=== PATIENT | female | born 1955 | race Caucasian/White ===

== ENCOUNTER 2017-10-05 10:21 | Inpatient (IN) | payer MEDICAID ==
[~2017-10-05] VITALS: Ht 157.5 cm; Wt 127.8 kg
[2017-10-05] VITALS (8 sets, daily range): BP systolic 75–114; BP diastolic 43–56
[~2017-10-05 10:21] MED LIST: ALB0.5UD IH; ASPI-1071 PO; BECL7.3A7 INH; BUSP15TA12 PO; DOCU-28 PO; FLUT1AER INH; FURO20TA4 PO; GABA600T2 PO; HYDR-3686 PO; LEVO250T58 PO; LEVO300T2 PO; LISI10TA PO; LORA-512 PO; MONT10TA21 PO; OXYGEN NS; PANT-47 PO; PRAV80TA3 PO; SPIIN INH; TRAV5DRO EACHEYE; TRAZ-143 PO; VENL150T3 PO; etomidate 2mg/ml inj. ONE; rocuronium 10mg/ml inj IV ONE
[2017-10-05] MEDS ORDERED: metroNIDAZOLE-Flagyl 500mg/NS 100 ML IV STA (10:36)
[2017-10-05] MEDS ORDERED: normal saline 1000ML IV soln IV ONE (10:40)
[2017-10-05] MEDS ORDERED: rocuronium 10mg/ml inj IV ONE (10:40)
[2017-10-05] MEDS ORDERED: fentaNYL/PF 50MCG/1 ML 2ML syringe IV ONE (10:40)
[2017-10-05] MEDS ORDERED: etomidate 2mg/ml inj. IV ONE (10:40)
[2017-10-05] MEDS ORDERED: levoFLOXACIN-Levaquin 500mg/D5 100 ML IV ONE (10:40)
[2017-10-05] MEDS ORDERED: vancomycin/NS 1 GM ADD-VANTAGE 250 ML IV ONE (10:40)
[2017-10-05] MEDS ORDERED: MIDAZolam 5mg/ml 2ml vial IV ONE (10:40)
[2017-10-05 10:56] LABS: BASOPHILS % (AUTO) 0.2 % (0-1); EOSINOPHILS # (AUTO) 0.3 X10'3 (0-0.9); EOSINOPHILS % (AUTO) 2.1 % (0-6); HEMATOCRIT 30.5 % (35.0-45.0); LYMPHOCYTES # (AUTO) 0.9 X10'3 (1.1-4.8); LYMPHOCYTES % (AUTO) 7.5 % (21-51); MEAN CORPUSCULAR HEMOGLOBIN 29.5 PG (27.0-31.0); MEAN CORPUSCULAR HGB CONC 32.9 % (33.0-36.5); MEAN CORPUSCULAR VOLUME 89.6 FL (78-98); MEAN PLATELET VOLUME 7.7 FL (7.4-10.4); MONOCYTES # (AUTO) 0.6 X10'3 (0-0.9); MONOCYTES % (AUTO) 4.8 % (2-12); NEUTROPHILS # (AUTO) 10.2 X10'3 (1.8-7.7); NEUTROPHILS % (AUTO) 85.4 % (42-75); PLATELET COUNT 189 X10'3 (140-440); RED BLOOD COUNT 3.41 X10'6 (4.20-5.60)
[2017-10-05] MEDS ORDERED: propofol 1000mg/100ml bottle 100 ML IV PRN (11:03)
[2017-10-05 11:05] LABS: PARTIAL THROMBOPLASTIN TIME 25 SECONDS (22-32); PROTHROMBIN TIME 9.9 SECONDS (9.0-12.0)
[2017-10-05 11:07] LABS: CLARITY,URINE CLEAR (Clear); COLOR,URINE YELLOW (Yellow); GLUCOSE, URINE NEGATIVE (Neg); KETONES,URINE NEGATIVE (Neg); LEUKOCYTE ESTERASE ,URINE NEGATIVE (Neg); NITRITES, URINE NEGATIVE (Neg); OCCULT BLOOD,URINE NEGATIVE (Neg); PH,URINE 5.5 (4.8-8.0); PROTEIN,URINE NEGATIVE (Neg); UROBILINOGEN,URINE 0.2 E.U/dL (0.2-1.0)
[2017-10-05 11:08] LABS: UA COLLECTION TYPE FOLEY CATH
[2017-10-05 11:10] LABS: ALANINE AMINOTRANSFERASE 18 U/L (12-78); ALBUMIN 3.1 G/DL (3.4-5.0); ALBUMIN/GLOBULIN RATIO 0.8 (1.1-1.5); ALKALINE PHOSPHATASE 75 IU/L (46-116); ANION GAP 2 (8-16); ASPARTATE AMINO TRANSFERASE 15 U/L (10-37); BILIRUBIN,TOTAL 0.3 MG/DL (0.1-1.0); BLOOD UREA NITROGEN 64 MG/DL (7-18); BUN/CREATININE RATIO 32.2 (6.6-38.0); CALCIUM 8.1 MG/DL (8.5-10.1); CHLORIDE 101 MMOL/L (99-107); CREATININE 1.99 MG/DL (0.40-0.90); GLUCOSE 151 MG/DL (70-104); SODIUM 143 MMOL/L (135-145); TOTAL CARBON DIOXIDE 39.6 MMOL/L (24-32); TOTAL PROTEIN 6.8 G/DL (6.4-8.2); eGFR 25 ML/MIN
[2017-10-05 11:11] LABS: ETHANOL < 0.010 GM/DL (0.0-0.010)
[2017-10-05 11:12] LABS: POTASSIUM 5.5 MMOL/L (3.5-5.1)
[2017-10-05 11:20] LABS: URINE AMPHETAMINE SCREEN NEGATIVE (Neg); URINE BARBITUATE SCREEN NEGATIVE (Neg); URINE BENZODIAZEPINES SCREEN NEGATIVE (Neg); URINE CANNABINOID SCREEN NEGATIVE (Neg); URINE COCAINE SCREEN NEGATIVE (Neg); URINE METHADONE SCREEN NEGATIVE (Neg); URINE OPIATE SCREEN NEGATIVE (Neg); URINE PHENCYCLIDINE SCREEN NEGATIVE (Neg)
[2017-10-05] MEDS: midazolam 100mg in NS 100ml 100 ML IV PRN ×7 (11:23→22:27)
[2017-10-05] MEDS ORDERED: midazolam 100mg in NS 100ml 100 ML IV PRN (12:29)
[2017-10-05 12:30] LABS: ABG BASE EXCESS 5.8 mmol/L (-2.0-3.0); ABG OXYGEN SATURATION 93.2 % (95-98); ABG PCO2 (T) 100.6 mmHg (32.0-45.0); ABG PH (T) 7.181 (7.350-7.450); ABG PO2 (T) 75.1 mmHg (83-108); FCOHb 0.3 % (0.5-1.5); FMetHb 0.2 % (0.3-1.12); FO2Hb 92.7 % (94-100); PATIENT TEMPERATURE 36.5; PEEP 5 cm H2O; RESPIRATORY RATE 12 b/min; TIDAL VOLUME 400 mL
[2017-10-05] MEDS ORDERED: acetaminophen 325mg tablet PO PRN (12:30)
[2017-10-05] MEDS ORDERED: potassium Cl 40MEQ/250ML bag 250 ML IV SCH (12:30)
[2017-10-05] MEDS ORDERED: ipratropium/albuterol 3ml nebule NEB PRN (12:30)
[2017-10-05] MEDS ORDERED: fentaNYL/PF 50MCG/1 ML 2ML syringe IV PRN (12:30)
[2017-10-05] MEDS ORDERED: midazolam 2 mg/2 ml injection IV ONE (12:30)
[2017-10-05] MEDS ORDERED: potassium Cl 20 mEq SR tablet PO PRN (12:30)
[2017-10-05] MEDS ORDERED: potassium Cl 40MEQ/250ML bag 250 ML IV PRN (12:30)
[2017-10-05] MEDS ORDERED: potassium Cl 40MEQ/NS 500ml 500 ML IV PRN ×2 (12:30)
[2017-10-05] MEDS: metroNIDAZOLE-Flagyl 500mg/NS 100 ML IV SCH ×2 (12:45→15:10)
[2017-10-05] MEDS ORDERED: levoFLOXACIN-Levaquin 250mg/D5 50 ML IV SCH (12:45)
[2017-10-05] MEDS ORDERED: ERGO500041 PO (12:51)
[2017-10-05] MEDS ORDERED: OMEP40CA37 PO (12:51)
[2017-10-05] MEDS ORDERED: DOCU-28 PO (12:51)
[2017-10-05] MEDS ORDERED: LORA10TA65 PO (12:51)
[2017-10-05] MEDS ORDERED: LURA20TA PO (12:51)
[2017-10-05] MEDS ORDERED: BUPR200T2 PO (12:51)
[2017-10-05] MEDS ORDERED: BUDE10.22 INH (12:51)
[2017-10-05] MEDS ORDERED: BUSP10TA11 PO (12:51)
[2017-10-05] MEDS ORDERED: SPIR25TA3 PO (12:51)
[2017-10-05] MEDS ORDERED: EFF25T PO (12:51)
[2017-10-05] MEDS: normal saline 1000ml 1,000 ML IV SCH ×2 (13:14→22:30)
[2017-10-05] MEDS: FENTANYL-0.9 % NACL/PF 100 ML IV PRN ×5 (13:26→15:08)
[2017-10-05] MEDS: ipratropium/albuterol 3ml nebule NEB SCH ×3 (16:45→23:09)
[2017-10-05] MEDS ORDERED: furosemide 40mg/4ml inj IV ONE (17:10)
[2017-10-05] MEDS: NORepinephrine 8mg/ 250ml NS 250 ML IV SCH (17:51)
[2017-10-05 19:31] LABS: OXYGEN SATURATION (MIXED VEN) 62.2 % (60-80); PO2 MIXED VENOUS (TEMP COR) 30.3 mmHg (35-46)
[2017-10-05] MEDS: heparin, porcine 5000 units/ml vial SQ SCH (19:37)
[2017-10-05] MEDS: docusate sod 100mg capsule PO SCH (19:38)
[2017-10-05] MEDS ORDERED: BECLOMETHASONE DIPROPIONATE INH SCH (20:00)
[2017-10-05] MEDS: latanoprost 0.005% 2.5ml ophthalmic drops EACHEYE SCH (20:40)
[2017-10-05] MEDS: famotidine/PF 10 mg/ml inj IV SCH (20:40)
[2017-10-06] VITALS (24 sets, daily range): BP systolic 92–119; BP diastolic 47–64
[2017-10-06] MEDS: metroNIDAZOLE-Flagyl 500mg/NS 100 ML IV SCH ×3 (00:04→16:27)
[2017-10-06] MEDS: FENTANYL-0.9 % NACL/PF 100 ML IV PRN ×5 (00:04→21:58)
[2017-10-06] MEDS: ipratropium/albuterol 3ml nebule NEB SCH ×6 (02:59→23:19)
[2017-10-06 03:16] LABS: ABG BASE EXCESS 12.3 mmol/L (-2.0-3.0); ABG HCO3 38.1 mmol/L (22.0-26.0); ABG OXYGEN SATURATION 93.9 % (95-98); ABG PCO2 (T) 58.2 mmHg (32.0-45.0); ABG PH (T) 7.437 (7.350-7.450); ABG PO2 (T) 73.7 mmHg (83-108); ALLEN'S TEST Positive; FCOHb 0.8 % (0.5-1.5); FMetHb 0.3 % (0.3-1.12); FO2Hb 92.9 % (94-100); MINUTE VOLUME 8 L/min; PATIENT TEMPERATURE 37.7; PEEP 5 cm H2O; RESPIRATORY RATE 20 b/min; RESPIRATORY RATE (OBSERVED) 20 b/min; TIDAL VOLUME 350 mL; TOTAL HEMOGLOBIN 10.8 G/dl (12.0-16.0)
[2017-10-06 04:39] LABS: BASOPHILS % (AUTO) 0.2 % (0-1); EOSINOPHILS # (AUTO) 0.3 X10'3 (0-0.9); EOSINOPHILS % (AUTO) 2.5 % (0-6); HEMATOCRIT 28.8 % (35.0-45.0); HEMOGLOBIN 9.6 g/dl (12.0-16.0); LYMPHOCYTES # (AUTO) 1.7 X10'3 (1.1-4.8); LYMPHOCYTES % (AUTO) 14.1 % (21-51); MEAN CORPUSCULAR HEMOGLOBIN 29.5 PG (27.0-31.0); MEAN CORPUSCULAR HGB CONC 33.4 % (33.0-36.5); MEAN CORPUSCULAR VOLUME 88.4 FL (78-98); MEAN PLATELET VOLUME 7.8 FL (7.4-10.4); MONOCYTES # (AUTO) 1.3 X10'3 (0-0.9); MONOCYTES % (AUTO) 10.9 % (2-12); NEUTROPHILS # (AUTO) 8.5 X10'3 (1.8-7.7); NEUTROPHILS % (AUTO) 72.3 % (42-75); PLATELET COUNT 183 X10'3 (140-440); RED BLOOD COUNT 3.26 X10'6 (4.20-5.60); RED CELL DISTRIBUTION WIDTH 13.7 % (11.5-14.5); WHITE BLOOD COUNT 11.7 X10'3 (4.5-11.0)
[2017-10-06 05:04] LABS: ALANINE AMINOTRANSFERASE 32 U/L (12-78); ALBUMIN 2.8 G/DL (3.4-5.0); ALBUMIN/GLOBULIN RATIO 0.8 (1.1-1.5); ALKALINE PHOSPHATASE 54 IU/L (46-116); ANION GAP 4 (8-16); ASPARTATE AMINO TRANSFERASE 26 U/L (10-37); BILIRUBIN,TOTAL 0.7 MG/DL (0.1-1.0); BLOOD UREA NITROGEN 54 MG/DL (7-18); BUN/CREATININE RATIO 31.2 (6.6-38.0); CALCIUM 8.3 MG/DL (8.5-10.1); CHLORIDE 103 MMOL/L (99-107); CREATININE 1.73 MG/DL (0.40-0.90); GLUCOSE 115 MG/DL (70-104); MAGNESIUM 1.5 MG/DL (1.5-2.4); PHOSPHORUS 3.3 MG/DL (2.3-4.5); POTASSIUM 4.2 MMOL/L (3.5-5.1); SODIUM 145 MMOL/L (135-145); TOTAL CARBON DIOXIDE 38.4 MMOL/L (24-32); TOTAL PROTEIN 6.2 G/DL (6.4-8.2); eGFR 30 ML/MIN
[2017-10-06] MEDS: aspirin 81mg tablet.DR PO SCH (08:00)
[2017-10-06] MEDS: famotidine/PF 10 mg/ml inj IV SCH ×2 (08:00→08:43)
[2017-10-06] MEDS ORDERED: TIOTROPIUM BROMIDE INH SCH (08:00)
[2017-10-06] MEDS: lisinopril 10 MG tablet PO SCH (08:00)
[2017-10-06] MEDS: docusate sod 100mg capsule PO SCH ×2 (08:00→20:00)
[2017-10-06] MEDS: levoFLOXACIN-Levaquin 250mg/D5 50 ML IV SCH (08:05)
[2017-10-06] MEDS: midazolam 100mg in NS 100ml 100 ML IV PRN ×2 (08:06→16:27)
[2017-10-06] MEDS: levoTHYROXINE 100mcg tablet PO SCH (08:07)
[2017-10-06] MEDS: atorvastatin 20mg tablet PO SCH (08:07)
[2017-10-06] MEDS: heparin, porcine 5000 units/ml vial SQ SCH ×2 (08:07→22:05)
[2017-10-06] MEDS: furosemide 20MG tablet PO SCH (08:07)
[2017-10-06] MEDS: loratadine 10mg tablet PO SCH (08:07)
[2017-10-06] MEDS: montelukast 10mg tablet PO SCH (08:07)
[2017-10-06] MEDS ORDERED: furosemide 40mg/4ml inj IV ONE (12:10)
[2017-10-06] MEDS: normal saline 1000ml 1,000 ML IV SCH (16:27)
[2017-10-06] MEDS: mineral oil/petrolatum ophthal oint EACHEYE SCH ×2 (16:28→21:55)
[2017-10-06] MEDS: latanoprost 0.005% 2.5ml ophthalmic drops EACHEYE SCH (21:57)
[2017-10-07] VITALS (24 sets, daily range): BP systolic 93–136; BP diastolic 51–70
[2017-10-07] MEDS: metroNIDAZOLE-Flagyl 500mg/NS 100 ML IV SCH ×3 (00:37→16:37)
[2017-10-07] MEDS: midazolam 100mg in NS 100ml 100 ML IV PRN ×3 (00:39→13:07)
[2017-10-07] MEDS: mineral oil/petrolatum ophthal oint EACHEYE SCH ×4 (02:51→20:51)
[2017-10-07] MEDS: FENTANYL-0.9 % NACL/PF 100 ML IV PRN ×4 (02:52→18:30)
[2017-10-07] MEDS: ipratropium/albuterol 3ml nebule NEB SCH ×6 (03:46→22:35)
[2017-10-07 04:21] LABS: ABG BASE EXCESS 11.5 mmol/L (-2.0-3.0); ABG HCO3 36.7 mmol/L (22.0-26.0); ABG OXYGEN SATURATION 93.6 % (95-98); ABG PH (T) 7.467 (7.350-7.450); ABG PO2 (T) 72.6 mmHg (83-108); ALLEN'S TEST Positive; FO2Hb 93.6 % (94-100); MINUTE VOLUME 8 L/min; PATIENT TEMPERATURE 37.3; PEEP 5 cm H2O; RESPIRATORY RATE 20 b/min; RESPIRATORY RATE (OBSERVED) 20 b/min; TIDAL VOLUME 350 mL; TOTAL HEMOGLOBIN 10.2 G/dl (12.0-16.0)
[2017-10-07 05:09] LABS: BASOPHILS % (AUTO) 0.2 % (0-1); EOSINOPHILS # (AUTO) 0.4 X10'3 (0-0.9); EOSINOPHILS % (AUTO) 2.9 % (0-6); HEMATOCRIT 27.2 % (35.0-45.0); HEMOGLOBIN 9.1 g/dl (12.0-16.0); LYMPHOCYTES # (AUTO) 1.9 X10'3 (1.1-4.8); LYMPHOCYTES % (AUTO) 14.8 % (21-51); MEAN CORPUSCULAR HEMOGLOBIN 29.7 PG (27.0-31.0); MEAN CORPUSCULAR HGB CONC 33.5 % (33.0-36.5); MEAN CORPUSCULAR VOLUME 88.6 FL (78-98); MEAN PLATELET VOLUME 7.7 FL (7.4-10.4); MONOCYTES # (AUTO) 1.2 X10'3 (0-0.9); MONOCYTES % (AUTO) 9.7 % (2-12); NEUTROPHILS # (AUTO) 9.4 X10'3 (1.8-7.7); NEUTROPHILS % (AUTO) 72.4 % (42-75); PLATELET COUNT 179 X10'3 (140-440); RED BLOOD COUNT 3.07 X10'6 (4.20-5.60); RED CELL DISTRIBUTION WIDTH 13.7 % (11.5-14.5); WHITE BLOOD COUNT 12.9 X10'3 (4.5-11.0)
[2017-10-07 05:25] LABS: ALANINE AMINOTRANSFERASE 24 U/L (12-78); ALBUMIN 2.5 G/DL (3.4-5.0); ALBUMIN/GLOBULIN RATIO 0.7 (1.1-1.5); ALKALINE PHOSPHATASE 47 IU/L (46-116); ANION GAP 6 (8-16); ASPARTATE AMINO TRANSFERASE 21 U/L (10-37); BILIRUBIN,TOTAL 0.7 MG/DL (0.1-1.0); BLOOD UREA NITROGEN 36 MG/DL (7-18); BUN/CREATININE RATIO 24.7 (6.6-38.0); CALCIUM 8.5 MG/DL (8.5-10.1); CHLORIDE 106 MMOL/L (99-107); CREATININE 1.46 MG/DL (0.40-0.90); GLUCOSE 117 MG/DL (70-104); MAGNESIUM 1.5 MG/DL (1.5-2.4); PHOSPHORUS 3.5 MG/DL (2.3-4.5); POTASSIUM 3.6 MMOL/L (3.5-5.1); SODIUM 149 MMOL/L (135-145); TOTAL CARBON DIOXIDE 37.5 MMOL/L (24-32); TOTAL PROTEIN 6.2 G/DL (6.4-8.2); eGFR 36 ML/MIN
[2017-10-07] MEDS: famotidine/PF 10 mg/ml inj IV SCH ×2 (07:31→20:51)
[2017-10-07] MEDS: heparin, porcine 5000 units/ml vial SQ SCH ×2 (07:31→20:51)
[2017-10-07] MEDS: furosemide 20MG tablet PO SCH (07:32)
[2017-10-07] MEDS: levoTHYROXINE 100mcg tablet PO SCH (07:32)
[2017-10-07] MEDS: levoFLOXACIN-Levaquin 250mg/D5 50 ML IV SCH (07:32)
[2017-10-07] MEDS: docusate sod 100mg capsule PO SCH ×2 (07:33→20:51)
[2017-10-07] MEDS: montelukast 10mg tablet PO SCH (07:33)
[2017-10-07] MEDS: atorvastatin 20mg tablet PO SCH (07:33)
[2017-10-07] MEDS: aspirin 81mg tablet.DR PO SCH (07:33)
[2017-10-07] MEDS: lisinopril 10 MG tablet PO SCH (07:34)
[2017-10-07] MEDS: loratadine 10mg tablet PO SCH (07:34)
[2017-10-07] MEDS: dexmedetomidin/NS 400mcg/100ml 100 ML IV SCH ×2 (11:42→17:50)
[2017-10-07] MEDS ORDERED: bisacodyl 10mg suppository rectal RC PRN (12:30)
[2017-10-07] MEDS: NORepinephrine 8mg/ 250ml NS 250 ML IV SCH (17:10)
[2017-10-07] MEDS: latanoprost 0.005% 2.5ml ophthalmic drops EACHEYE SCH (20:52)
[2017-10-07] MEDS: normal saline 1000ml 1,000 ML IV SCH (22:09)
[2017-10-08] VITALS (23 sets, daily range): BP systolic 105–160; BP diastolic 57–82
[2017-10-08] MEDS: mineral oil/petrolatum ophthal oint EACHEYE SCH ×4 (02:00→20:57)
[2017-10-08] MEDS: ipratropium/albuterol 3ml nebule NEB SCH ×6 (02:28→22:30)
[2017-10-08] MEDS: dexmedetomidin/NS 400mcg/100ml 100 ML IV SCH ×4 (03:19→23:39)
[2017-10-08] MEDS: FENTANYL-0.9 % NACL/PF 100 ML IV PRN ×3 (03:19→14:17)
[2017-10-08 03:55] LABS: ABG BASE EXCESS 11.2 mmol/L (-2.0-3.0); ABG HCO3 35.5 mmol/L (22.0-26.0); ABG OXYGEN SATURATION 91.1 % (95-98); ABG PCO2 (T) 45.2 mmHg (32.0-45.0); ABG PH (T) 7.511 (7.350-7.450); ABG PO2 (T) 57.5 mmHg (83-108); ALLEN'S TEST Positive; FCOHb 0.3 % (0.5-1.5); FMetHb 0.3 % (0.3-1.12); FO2Hb 90.6 % (94-100); MINUTE VOLUME 7 L/min; PATIENT TEMPERATURE 36.4; PEEP 5 cm H2O; RESPIRATORY RATE 20 b/min; RESPIRATORY RATE (OBSERVED) 20 b/min; TIDAL VOLUME 350 mL
[2017-10-08 03:56] LABS: BASOPHILS % (AUTO) 0.4 % (0-1); EOSINOPHILS # (AUTO) 0.3 X10'3 (0-0.9); EOSINOPHILS % (AUTO) 2.8 % (0-6); HEMATOCRIT 27.7 % (35.0-45.0); HEMOGLOBIN 9.1 g/dl (12.0-16.0); LYMPHOCYTES # (AUTO) 1.2 X10'3 (1.1-4.8); MEAN CORPUSCULAR HEMOGLOBIN 29.2 PG (27.0-31.0); MEAN CORPUSCULAR HGB CONC 32.9 % (33.0-36.5); MEAN CORPUSCULAR VOLUME 88.8 FL (78-98); MONOCYTES # (AUTO) 0.7 X10'3 (0-0.9); MONOCYTES % (AUTO) 7.1 % (2-12); NEUTROPHILS # (AUTO) 7.6 X10'3 (1.8-7.7); NEUTROPHILS % (AUTO) 77.7 % (42-75); PLATELET COUNT 174 X10'3 (140-440); RED BLOOD COUNT 3.11 X10'6 (4.20-5.60); RED CELL DISTRIBUTION WIDTH 14.2 % (11.5-14.5); WHITE BLOOD COUNT 9.8 X10'3 (4.5-11.0)
[2017-10-08 04:06] LABS: ALANINE AMINOTRANSFERASE 20 U/L (12-78); ALBUMIN 2.4 G/DL (3.4-5.0); ALBUMIN/GLOBULIN RATIO 0.6 (1.1-1.5); ALKALINE PHOSPHATASE 45 IU/L (46-116); ANION GAP 7 (8-16); ASPARTATE AMINO TRANSFERASE 17 U/L (10-37); BILIRUBIN,TOTAL 0.4 MG/DL (0.1-1.0); BLOOD UREA NITROGEN 28 MG/DL (7-18); BUN/CREATININE RATIO 22.4 (6.6-38.0); CALCIUM 8.6 MG/DL (8.5-10.1); CHLORIDE 106 MMOL/L (99-107); CREATININE 1.25 MG/DL (0.40-0.90); GLUCOSE 115 MG/DL (70-104); MAGNESIUM 1.6 MG/DL (1.5-2.4); PHOSPHORUS 3.8 MG/DL (2.3-4.5); POTASSIUM 3.7 MMOL/L (3.5-5.1); PREALBUMIN 16.9 MG/DL (19-36); SODIUM 148 MMOL/L (135-145); TOTAL CARBON DIOXIDE 34.8 MMOL/L (24-32); TOTAL PROTEIN 6.4 G/DL (6.4-8.2); eGFR 43 ML/MIN
[2017-10-08] MEDS: midazolam 100mg in NS 100ml 100 ML IV PRN (06:09)
[2017-10-08] MEDS: metroNIDAZOLE-Flagyl 500mg/NS 100 ML IV SCH ×4 (07:40→23:39)
[2017-10-08] MEDS: levoFLOXACIN-Levaquin 250mg/D5 50 ML IV SCH (07:40)
[2017-10-08] MEDS: atorvastatin 20mg tablet PO SCH (07:41)
[2017-10-08] MEDS: levoTHYROXINE 100mcg tablet PO SCH (07:41)
[2017-10-08] MEDS: montelukast 10mg tablet PO SCH (07:41)
[2017-10-08] MEDS: furosemide 20MG tablet PO SCH (07:41)
[2017-10-08] MEDS: aspirin 81mg tablet.DR PO SCH (07:41)
[2017-10-08] MEDS: docusate sod 100mg capsule PO SCH (07:41)
[2017-10-08] MEDS: heparin, porcine 5000 units/ml vial SQ SCH ×2 (07:42→20:57)
[2017-10-08] MEDS: lisinopril 10 MG tablet PO SCH (07:42)
[2017-10-08] MEDS: loratadine 10mg tablet PO SCH (07:42)
[2017-10-08] MEDS: famotidine/PF 10 mg/ml inj IV SCH ×2 (07:42→20:58)
[2017-10-08] MEDS: normal saline 1000ml 1,000 ML IV SCH (16:35)
[2017-10-08] MEDS: latanoprost 0.005% 2.5ml ophthalmic drops EACHEYE SCH (20:58)
[2017-10-08] MEDS: docusate sodium 100mg/10ml UD cup PO SCH (20:58)
[2017-10-09] VITALS (23 sets, daily range): BP systolic 103–164; BP diastolic 54–94
[2017-10-09] MEDS: FENTANYL-0.9 % NACL/PF 100 ML IV PRN (00:47)
[2017-10-09] MEDS: mineral oil/petrolatum ophthal oint EACHEYE SCH ×4 (02:00→20:51)
[2017-10-09] MEDS: ipratropium/albuterol 3ml nebule NEB SCH ×6 (02:30→22:37)
[2017-10-09 03:04] LABS: BASOPHILS % (AUTO) 0.3 % (0-1); EOSINOPHILS # (AUTO) 0.3 X10'3 (0-0.9); EOSINOPHILS % (AUTO) 3.6 % (0-6); HEMATOCRIT 27.3 % (35.0-45.0); LYMPHOCYTES # (AUTO) 1.2 X10'3 (1.1-4.8); LYMPHOCYTES % (AUTO) 12.8 % (21-51); MEAN CORPUSCULAR HEMOGLOBIN 29.2 PG (27.0-31.0); MEAN CORPUSCULAR VOLUME 88.5 FL (78-98); MEAN PLATELET VOLUME 8.1 FL (7.4-10.4); MONOCYTES # (AUTO) 0.7 X10'3 (0-0.9); NEUTROPHILS # (AUTO) 7.2 X10'3 (1.8-7.7); NEUTROPHILS % (AUTO) 76.3 % (42-75); PLATELET COUNT 193 X10'3 (140-440); RED BLOOD COUNT 3.09 X10'6 (4.20-5.60); RED CELL DISTRIBUTION WIDTH 14.2 % (11.5-14.5); WHITE BLOOD COUNT 9.4 X10'3 (4.5-11.0)
[2017-10-09 03:22] LABS: ALANINE AMINOTRANSFERASE 18 U/L (12-78); ALBUMIN 2.3 G/DL (3.4-5.0); ALBUMIN/GLOBULIN RATIO 0.6 (1.1-1.5); ALKALINE PHOSPHATASE 43 IU/L (46-116); ANION GAP 7 (8-16); ASPARTATE AMINO TRANSFERASE 14 U/L (10-37); BILIRUBIN,TOTAL 0.4 MG/DL (0.1-1.0); BLOOD UREA NITROGEN 25 MG/DL (7-18); BUN/CREATININE RATIO 21.9 (6.6-38.0); CALCIUM 8.6 MG/DL (8.5-10.1); CHLORIDE 107 MMOL/L (99-107); CREATININE 1.14 MG/DL (0.40-0.90); GLUCOSE 95 MG/DL (70-104); MAGNESIUM 1.8 MG/DL (1.5-2.4); PHOSPHORUS 4.4 MG/DL (2.3-4.5); POTASSIUM 3.6 MMOL/L (3.5-5.1); SODIUM 147 MMOL/L (135-145); TOTAL CARBON DIOXIDE 32.6 MMOL/L (24-32); TOTAL PROTEIN 6.2 G/DL (6.4-8.2); eGFR 48 ML/MIN
[2017-10-09 04:05] LABS: ABG BASE EXCESS 6.6 mmol/L (-2.0-3.0); ABG HCO3 30.5 mmol/L (22.0-26.0); ABG PCO2 (T) 41.1 mmHg (32.0-45.0); ABG PH (T) 7.488 (7.350-7.450); ABG PO2 (T) 60.3 mmHg (83-108); ALLEN'S TEST Positive; FCOHb 0.3 % (0.5-1.5); FMetHb 0.3 % (0.3-1.12); FO2Hb 89.5 % (94-100); MINUTE VOLUME 7 L/min; PATIENT TEMPERATURE 37.1; PEEP 5 cm H2O; RESPIRATORY RATE 20 b/min; RESPIRATORY RATE (OBSERVED) 20 b/min; TIDAL VOLUME 350 mL
[2017-10-09] MEDS: dexmedetomidin/NS 400mcg/100ml 100 ML IV SCH ×6 (05:38→22:50)
[2017-10-09] MEDS: heparin, porcine 5000 units/ml vial SQ SCH ×2 (08:32→20:52)
[2017-10-09] MEDS: famotidine/PF 10 mg/ml inj IV SCH ×2 (08:32→20:52)
[2017-10-09] MEDS: levoTHYROXINE 100mcg tablet PO SCH (08:32)
[2017-10-09] MEDS: levoFLOXACIN-Levaquin 250mg/D5 50 ML IV SCH (08:32)
[2017-10-09] MEDS: loratadine 10mg tablet PO SCH (08:32)
[2017-10-09] MEDS: docusate sodium 100mg/10ml UD cup PO SCH ×2 (08:32→20:52)
[2017-10-09] MEDS: atorvastatin 20mg tablet PO SCH (08:32)
[2017-10-09] MEDS: metroNIDAZOLE-Flagyl 500mg/NS 100 ML IV SCH ×3 (08:32→23:52)
[2017-10-09] MEDS: lisinopril 10 MG tablet PO SCH (08:33)
[2017-10-09] MEDS: aspirin 81mg tablet.DR PO SCH (08:33)
[2017-10-09] MEDS: furosemide 20MG tablet PO SCH (08:33)
[2017-10-09] MEDS: montelukast 10mg tablet PO SCH (08:33)
[2017-10-09] MEDS: furosemide 40mg/4ml inj IV SCH ×2 (10:14→20:51)
[2017-10-09] MEDS: methylPREDNISolone sod succ 125mg/2ml vial IV SCH ×3 (12:18→20:52)
[2017-10-09] MEDS: NORepinephrine 8mg/ 250ml NS 250 ML IV SCH (16:42)
[2017-10-09] MEDS: normal saline 1000ml 1,000 ML IV SCH (20:36)
[2017-10-09] MEDS: latanoprost 0.005% 2.5ml ophthalmic drops EACHEYE SCH (20:51)
[2017-10-09] MEDS: lactobacillus rhamnosus 10,000 MMU CELLS/CAPSULE PO SCH (20:52)
[2017-10-10] VITALS (24 sets, daily range): BP systolic 114–165; BP diastolic 62–98
[2017-10-10] MEDS: mineral oil/petrolatum ophthal oint EACHEYE SCH ×5 (02:12→23:46)
[2017-10-10] MEDS: methylPREDNISolone sod succ 125mg/2ml vial IV SCH ×4 (02:12→20:18)
[2017-10-10] MEDS: ipratropium/albuterol 3ml nebule NEB SCH ×6 (02:27→22:28)
[2017-10-10 03:19] LABS: BASOPHILS % (AUTO) 0.2 % (0-1); EOSINOPHILS # (AUTO) 0.2 X10'3 (0-0.9); EOSINOPHILS % (AUTO) 1.9 % (0-6); HEMATOCRIT 31.3 % (35.0-45.0); HEMOGLOBIN 10.5 g/dl (12.0-16.0); LYMPHOCYTES # (AUTO) 0.8 X10'3 (1.1-4.8); LYMPHOCYTES % (AUTO) 7.7 % (21-51); MEAN CORPUSCULAR HEMOGLOBIN 29.4 PG (27.0-31.0); MEAN CORPUSCULAR HGB CONC 33.4 % (33.0-36.5); MEAN CORPUSCULAR VOLUME 88.1 FL (78-98); MEAN PLATELET VOLUME 8.4 FL (7.4-10.4); MONOCYTES # (AUTO) 0.2 X10'3 (0-0.9); MONOCYTES % (AUTO) 1.6 % (2-12); NEUTROPHILS % (AUTO) 88.6 % (42-75); PLATELET COUNT 243 X10'3 (140-440); RED BLOOD COUNT 3.56 X10'6 (4.20-5.60); RED CELL DISTRIBUTION WIDTH 13.6 % (11.5-14.5); WHITE BLOOD COUNT 10.1 X10'3 (4.5-11.0)
[2017-10-10 03:35] LABS: ABG HCO3 28.9 mmol/L (22.0-26.0); ABG OXYGEN SATURATION 90.7 % (95-98); ABG PCO2 (T) 35.4 mmHg (32.0-45.0); ABG PH (T) 7.529 (7.350-7.450); ABG PO2 (T) 58.8 mmHg (83-108); ALLEN'S TEST Positive; FCOHb 0.3 % (0.5-1.5); FO2Hb 90.4 % (94-100); MINUTE VOLUME 8 L/min; PATIENT TEMPERATURE 36.6; PEEP 5 cm H2O; RESPIRATORY RATE 20 b/min; RESPIRATORY RATE (OBSERVED) 20 b/min; TIDAL VOLUME 378 mL; TOTAL HEMOGLOBIN 11.7 G/dl (12.0-16.0)
[2017-10-10 03:39] LABS: ALANINE AMINOTRANSFERASE 19 U/L (12-78); ALBUMIN 2.4 G/DL (3.4-5.0); ALBUMIN/GLOBULIN RATIO 0.5 (1.1-1.5); ALKALINE PHOSPHATASE 49 IU/L (46-116); ANION GAP 12 (8-16); ASPARTATE AMINO TRANSFERASE 15 U/L (10-37); BILIRUBIN,TOTAL 0.5 MG/DL (0.1-1.0); BLOOD UREA NITROGEN 38 MG/DL (7-18); BUN/CREATININE RATIO 27.5 (6.6-38.0); CALCIUM 8.6 MG/DL (8.5-10.1); CHLORIDE 102 MMOL/L (99-107); CREATININE 1.38 MG/DL (0.40-0.90); GLUCOSE 153 MG/DL (70-104); MAGNESIUM 1.7 MG/DL (1.5-2.4); PHOSPHORUS 6.2 MG/DL (2.3-4.5); POTASSIUM 3.7 MMOL/L (3.5-5.1); SODIUM 143 MMOL/L (135-145); TOTAL CARBON DIOXIDE 29.1 MMOL/L (24-32); eGFR 39 ML/MIN
[2017-10-10] MEDS: dexmedetomidin/NS 400mcg/100ml 100 ML IV SCH ×7 (05:01→23:45)
[2017-10-10] MEDS: furosemide 20MG tablet PO SCH (08:00)
[2017-10-10] MEDS: furosemide 40mg/4ml inj IV SCH ×2 (08:06→20:18)
[2017-10-10] MEDS: methylnaltrexone br 12mg/0.6ml inj***SubQ only SQ SCH (08:07)
[2017-10-10] MEDS: heparin, porcine 5000 units/ml vial SQ SCH ×2 (08:07→20:18)
[2017-10-10] MEDS: atorvastatin 20mg tablet PO SCH (08:08)
[2017-10-10] MEDS: lactobacillus rhamnosus 10,000 MMU CELLS/CAPSULE PO SCH ×2 (08:08→20:17)
[2017-10-10] MEDS: aspirin 81mg tablet.DR PO SCH (08:08)
[2017-10-10] MEDS: docusate sodium 100mg/10ml UD cup PO SCH ×2 (08:08→20:17)
[2017-10-10] MEDS: loratadine 10mg tablet PO SCH (08:08)
[2017-10-10] MEDS: lisinopril 10 MG tablet PO SCH (08:08)
[2017-10-10] MEDS: montelukast 10mg tablet PO SCH (08:08)
[2017-10-10] MEDS: levoTHYROXINE 100mcg tablet PO SCH (08:08)
[2017-10-10] MEDS: famotidine/PF 10 mg/ml inj IV SCH ×2 (08:09→20:21)
[2017-10-10] MEDS: metroNIDAZOLE-Flagyl 500mg/NS 100 ML IV SCH ×3 (08:09→23:46)
[2017-10-10] MEDS: levoFLOXACIN-Levaquin 250mg/D5 50 ML IV SCH (08:09)
[2017-10-10] MEDS ORDERED: glucagon, human recombinant 1mg kit SUBCUT PRN (18:50)
[2017-10-10] MEDS ORDERED: dextrose 50%-water 50ml dispensing syringe IV PRN ×2 (18:50)
[2017-10-10] MEDS ORDERED: dextrose ORAL solution 15 GM/59 ML bottle PO PRN ×2 (18:50)
[2017-10-10] MEDS ORDERED: MESSAGE TO PHARMACY PO ONE (18:50)
[2017-10-10] MEDS ORDERED: insulin regular, human vial - multi-dose SQ SCH (18:50)
[2017-10-10] MEDS: latanoprost 0.005% 2.5ml ophthalmic drops EACHEYE SCH (20:21)
[2017-10-10] MEDS: insulin glargine (Lantus) pen - multi-dose SQ SCH (21:00)
[2017-10-11] VITALS (23 sets, daily range): BP systolic 113–168; BP diastolic 65–94
[2017-10-11] MEDS: midazolam 100mg in NS 100ml 100 ML IV PRN (00:26)
[2017-10-11] MEDS: methylPREDNISolone sod succ 125mg/2ml vial IV SCH ×4 (02:20→20:45)
[2017-10-11] MEDS: ipratropium/albuterol 3ml nebule NEB SCH ×6 (02:40→22:49)
[2017-10-11] MEDS: dexmedetomidin/NS 400mcg/100ml 100 ML IV SCH ×7 (02:41→21:19)
[2017-10-11 03:27] LABS: BASOPHILS % (AUTO) 0 % (0-1); EOSINOPHILS # (AUTO) 0.2 X10'3 (0-0.9); EOSINOPHILS % (AUTO) 1.8 % (0-6); HEMATOCRIT 30.8 % (35.0-45.0); HEMOGLOBIN 10.3 g/dl (12.0-16.0); LYMPHOCYTES # (AUTO) 0.8 X10'3 (1.1-4.8); LYMPHOCYTES % (AUTO) 5.8 % (21-51); MEAN CORPUSCULAR HEMOGLOBIN 29.3 PG (27.0-31.0); MEAN CORPUSCULAR HGB CONC 33.3 % (33.0-36.5); MEAN PLATELET VOLUME 8.8 FL (7.4-10.4); MONOCYTES # (AUTO) 0.5 X10'3 (0-0.9); MONOCYTES % (AUTO) 3.6 % (2-12); NEUTROPHILS # (AUTO) 11.7 X10'3 (1.8-7.7); NEUTROPHILS % (AUTO) 88.8 % (42-75); PLATELET COUNT 260 X10'3 (140-440); RED CELL DISTRIBUTION WIDTH 13.4 % (11.5-14.5); WHITE BLOOD COUNT 13.1 X10'3 (4.5-11.0)
[2017-10-11 03:40] LABS: ABG BASE EXCESS 6.4 mmol/L (-2.0-3.0); ABG HCO3 28.4 mmol/L (22.0-26.0); ABG OXYGEN SATURATION 92.1 % (95-98); ABG PCO2 (T) 32.4 mmHg (32.0-45.0); ABG PH (T) 7.561 (7.350-7.450); ABG PO2 (T) 62.7 mmHg (83-108); ALLEN'S TEST Positive; FCOHb 0.3 % (0.5-1.5); FMetHb 0.3 % (0.3-1.12); FO2Hb 91.5 % (94-100); MINUTE VOLUME 8 L/min; PATIENT TEMPERATURE 37.3; PEEP 5 cm H2O; RESPIRATORY RATE 20 b/min; RESPIRATORY RATE (OBSERVED) 20 b/min; TIDAL VOLUME 389 mL; TOTAL HEMOGLOBIN 11.4 G/dl (12.0-16.0)
[2017-10-11 03:44] LABS: ALANINE AMINOTRANSFERASE 16 U/L (12-78); ALBUMIN 2.5 G/DL (3.4-5.0); ALBUMIN/GLOBULIN RATIO 0.6 (1.1-1.5); ALKALINE PHOSPHATASE 44 IU/L (46-116); ANION GAP 11 (8-16); ASPARTATE AMINO TRANSFERASE 12 U/L (10-37); BILIRUBIN,TOTAL 0.4 MG/DL (0.1-1.0); BLOOD UREA NITROGEN 52 MG/DL (7-18); BUN/CREATININE RATIO 35.6 (6.6-38.0); CALCIUM 8.4 MG/DL (8.5-10.1); CHLORIDE 101 MMOL/L (99-107); CREATININE 1.46 MG/DL (0.40-0.90); GLUCOSE 156 MG/DL (70-104); MAGNESIUM 1.8 MG/DL (1.5-2.4); PHOSPHORUS 3.8 MG/DL (2.3-4.5); POTASSIUM 3.1 MMOL/L (3.5-5.1); SODIUM 141 MMOL/L (135-145); TOTAL CARBON DIOXIDE 29.3 MMOL/L (24-32); TOTAL PROTEIN 6.7 G/DL (6.4-8.2); eGFR 36 ML/MIN
[2017-10-11] MEDS ORDERED: potassium Cl 40MEQ/250ML bag 250 ML IV ONE (04:10)
[2017-10-11] MEDS: mineral oil/petrolatum ophthal oint EACHEYE SCH ×3 (08:00→20:46)
[2017-10-11] MEDS: furosemide 20MG tablet PO SCH (08:00)
[2017-10-11] MEDS: levoFLOXACIN-Levaquin 250mg/D5 50 ML IV SCH (08:24)
[2017-10-11] MEDS: lactobacillus rhamnosus 10,000 MMU CELLS/CAPSULE PO SCH ×2 (08:53→20:45)
[2017-10-11] MEDS: loratadine 10mg tablet PO SCH (08:54)
[2017-10-11] MEDS: levoTHYROXINE 100mcg tablet PO SCH (08:55)
[2017-10-11] MEDS: montelukast 10mg tablet PO SCH (08:55)
[2017-10-11] MEDS: furosemide 40mg/4ml inj IV SCH ×2 (08:56→20:45)
[2017-10-11] MEDS: aspirin 81mg tablet.DR PO SCH (08:56)
[2017-10-11] MEDS: lisinopril 10 MG tablet PO SCH (08:56)
[2017-10-11] MEDS: docusate sodium 100mg/10ml UD cup PO SCH ×2 (08:56→20:45)
[2017-10-11] MEDS: atorvastatin 20mg tablet PO SCH (08:56)
[2017-10-11] MEDS: metroNIDAZOLE-Flagyl 500mg/NS 100 ML IV SCH ×2 (08:57→15:07)
[2017-10-11] MEDS: heparin, porcine 5000 units/ml vial SQ SCH ×2 (08:57→20:46)
[2017-10-11] MEDS: famotidine/PF 10 mg/ml inj IV SCH ×2 (09:06→20:45)
[2017-10-11 11:54] LABS: PREALBUMIN 19.9 MG/DL (19-36)
[2017-10-11] MEDS ORDERED: LORazepam 2 mg/ml vial IV PRN (12:30)
[2017-10-11] MEDS: NORepinephrine 8mg/ 250ml NS 250 ML IV SCH (17:10)
[2017-10-11] MEDS: normal saline 1000ml 1,000 ML IV SCH (20:36)
[2017-10-11] MEDS: latanoprost 0.005% 2.5ml ophthalmic drops EACHEYE SCH (20:46)
[2017-10-11] MEDS: insulin glargine (Lantus) pen - multi-dose SQ SCH (20:47)
[2017-10-12] VITALS (24 sets, daily range): BP systolic 125–174; BP diastolic 59–98
[2017-10-12] MEDS: metroNIDAZOLE-Flagyl 500mg/NS 100 ML IV SCH ×3 (00:04→15:01)
[2017-10-12] MEDS: midazolam 100mg in NS 100ml 100 ML IV PRN (00:05)
[2017-10-12] MEDS: dexmedetomidin/NS 400mcg/100ml 100 ML IV SCH ×4 (00:10→11:12)
[2017-10-12] MEDS: methylPREDNISolone sod succ 125mg/2ml vial IV SCH ×4 (01:56→21:22)
[2017-10-12] MEDS: mineral oil/petrolatum ophthal oint EACHEYE SCH ×3 (02:00→14:00)
[2017-10-12] MEDS: ipratropium/albuterol 3ml nebule NEB SCH ×6 (02:41→23:11)
[2017-10-12 02:44] LABS: BASOPHILS % (AUTO) 0.1 % (0-1); EOSINOPHILS # (AUTO) 0.2 X10'3 (0-0.9); EOSINOPHILS % (AUTO) 1.5 % (0-6); HEMATOCRIT 30.2 % (35.0-45.0); HEMOGLOBIN 10.1 g/dl (12.0-16.0); LYMPHOCYTES # (AUTO) 0.8 X10'3 (1.1-4.8); LYMPHOCYTES % (AUTO) 6.4 % (21-51); MEAN CORPUSCULAR HEMOGLOBIN 29.1 PG (27.0-31.0); MEAN CORPUSCULAR HGB CONC 33.5 % (33.0-36.5); MEAN CORPUSCULAR VOLUME 87.1 FL (78-98); MEAN PLATELET VOLUME 8.5 FL (7.4-10.4); MONOCYTES # (AUTO) 0.7 X10'3 (0-0.9); MONOCYTES % (AUTO) 5.7 % (2-12); NEUTROPHILS # (AUTO) 10.8 X10'3 (1.8-7.7); NEUTROPHILS % (AUTO) 86.3 % (42-75); PLATELET COUNT 262 X10'3 (140-440); RED BLOOD COUNT 3.47 X10'6 (4.20-5.60); RED CELL DISTRIBUTION WIDTH 13.3 % (11.5-14.5); WHITE BLOOD COUNT 12.5 X10'3 (4.5-11.0)
[2017-10-12 02:59] LABS: ALANINE AMINOTRANSFERASE 16 U/L (12-78); ALBUMIN 2.6 G/DL (3.4-5.0); ALBUMIN/GLOBULIN RATIO 0.6 (1.1-1.5); ALKALINE PHOSPHATASE 44 IU/L (46-116); ANION GAP 11 (8-16); ASPARTATE AMINO TRANSFERASE 13 U/L (10-37); BILIRUBIN,TOTAL 0.3 MG/DL (0.1-1.0); BLOOD UREA NITROGEN 54 MG/DL (7-18); CALCIUM 8.4 MG/DL (8.5-10.1); CHLORIDE 102 MMOL/L (99-107); CREATININE 1.46 MG/DL (0.40-0.90); GLUCOSE 151 MG/DL (70-104); MAGNESIUM 1.8 MG/DL (1.5-2.4); PHOSPHORUS 3.4 MG/DL (2.3-4.5); POTASSIUM 3.7 MMOL/L (3.5-5.1); SODIUM 142 MMOL/L (135-145); TOTAL CARBON DIOXIDE 29.5 MMOL/L (24-32); TOTAL PROTEIN 6.7 G/DL (6.4-8.2); eGFR 36 ML/MIN
[2017-10-12 04:05] LABS: ABG BASE EXCESS 3.9 mmol/L (-2.0-3.0); ABG HCO3 26.5 mmol/L (22.0-26.0); ABG PCO2 (T) 32.7 mmHg (32.0-45.0); ABG PH (T) 7.527 (7.350-7.450); ABG PO2 (T) 70.6 mmHg (83-108); ALLEN'S TEST Positive; FCOHb 0.3 % (0.5-1.5); FMetHb 0.2 % (0.3-1.12); FO2Hb 93.5 % (94-100); MINUTE VOLUME 7 L/min; PATIENT TEMPERATURE 36.9; PEEP 5 cm H2O; RESPIRATORY RATE 16 b/min; RESPIRATORY RATE (OBSERVED) 16 b/min; TIDAL VOLUME 651 mL; TOTAL HEMOGLOBIN 11.2 G/dl (12.0-16.0)
[2017-10-12] MEDS: famotidine/PF 10 mg/ml inj IV SCH ×2 (09:16→21:48)
[2017-10-12] MEDS: levoFLOXACIN-Levaquin 250mg/D5 50 ML IV SCH (09:18)
[2017-10-12] MEDS: levoTHYROXINE 100mcg tablet PO SCH (09:19)
[2017-10-12] MEDS: lisinopril 10 MG tablet PO SCH (09:19)
[2017-10-12] MEDS: aspirin 81mg tablet.DR PO SCH (09:19)
[2017-10-12] MEDS: lactobacillus rhamnosus 10,000 MMU CELLS/CAPSULE PO SCH ×2 (09:20→21:20)
[2017-10-12] MEDS: montelukast 10mg tablet PO SCH (09:20)
[2017-10-12] MEDS: atorvastatin 20mg tablet PO SCH (09:20)
[2017-10-12] MEDS: docusate sodium 100mg/10ml UD cup PO SCH (09:21)
[2017-10-12] MEDS: loratadine 10mg tablet PO SCH (09:21)
[2017-10-12] MEDS: furosemide 40mg/4ml inj IV SCH ×2 (09:21→21:22)
[2017-10-12] MEDS: heparin, porcine 5000 units/ml vial SQ SCH ×2 (09:22→21:22)
[2017-10-12] MEDS: methylnaltrexone br 12mg/0.6ml inj***SubQ only SQ SCH (09:24)
[2017-10-12] MEDS: acetaminophen 325mg tablet PO PRN ×2 (09:58→15:34)
[2017-10-12] MEDS ORDERED: gabapentin 400mg capsule PO SCH (20:00)
[2017-10-12] MEDS ORDERED: buPROPion 100mg tablet PO SCH (20:00)
[2017-10-12] MEDS: ondansetron/PF 4mg/2ml inj IV PRN (20:57)
[2017-10-12] MEDS: insulin glargine (Lantus) pen - multi-dose SQ SCH (21:00)
[2017-10-12] MEDS: traZODone 50mg tablet PO SCH (21:20)
[2017-10-12] MEDS: venlafaxine 37.5mg tablet PO SCH (21:20)
[2017-10-12] MEDS: busPIRone 15mg tablet PO SCH (21:20)
[2017-10-12] MEDS: docusate sod 100mg capsule PO SCH (21:20)
[2017-10-12] MEDS: gabapentin 300mg capsule PO SCH (21:21)
[2017-10-12] MEDS: latanoprost 0.005% 2.5ml ophthalmic drops EACHEYE SCH (21:44)
[2017-10-12] MEDS ORDERED: non-formulary drug (Albuterol Sulfate Nebs* (Proventil Nebs*) 2.5 MG) IH SCH (23:00)
[2017-10-12] MEDS: metoclopramide 5 mg/ml inj IV PRN (23:18)
[2017-10-13] VITALS: BP 178/85
[2017-10-13] MEDS: metroNIDAZOLE-Flagyl 500mg/NS 100 ML IV SCH ×4 (01:19→23:43)
[2017-10-13] MEDS: methylPREDNISolone sod succ 125mg/2ml vial IV SCH ×4 (01:19→20:17)
[2017-10-13] MEDS: acetaminophen 325mg tablet PO PRN (01:29)
[2017-10-13] MEDS: ondansetron/PF 4mg/2ml inj IV PRN ×2 (04:27→19:11)
[2017-10-13 05:24] LABS: BASOPHILS % (AUTO) 0 % (0-1); EOSINOPHILS # (AUTO) 0.4 X10'3 (0-0.9); EOSINOPHILS % (AUTO) 2.1 % (0-6); HEMATOCRIT 33.3 % (35.0-45.0); HEMOGLOBIN 11.2 g/dl (12.0-16.0); LYMPHOCYTES # (AUTO) 0.8 X10'3 (1.1-4.8); LYMPHOCYTES % (AUTO) 5.1 % (21-51); MEAN CORPUSCULAR HEMOGLOBIN 29.5 PG (27.0-31.0); MEAN CORPUSCULAR HGB CONC 33.5 % (33.0-36.5); MEAN CORPUSCULAR VOLUME 87.9 FL (78-98); MEAN PLATELET VOLUME 8.5 FL (7.4-10.4); MONOCYTES # (AUTO) 0.6 X10'3 (0-0.9); MONOCYTES % (AUTO) 3.7 % (2-12); NEUTROPHILS # (AUTO) 14.7 X10'3 (1.8-7.7); NEUTROPHILS % (AUTO) 89.1 % (42-75); PLATELET COUNT 320 X10'3 (140-440); RED BLOOD COUNT 3.79 X10'6 (4.20-5.60); RED CELL DISTRIBUTION WIDTH 13.7 % (11.5-14.5); WHITE BLOOD COUNT 16.5 X10'3 (4.5-11.0)
[2017-10-13 06:00] VITALS: BP 165/92
[2017-10-13 06:00] LABS: ALANINE AMINOTRANSFERASE 17 U/L (12-78); ALBUMIN 2.9 G/DL (3.4-5.0); ALBUMIN/GLOBULIN RATIO 0.7 (1.1-1.5); ALKALINE PHOSPHATASE 45 IU/L (46-116); ANION GAP 11 (8-16); ASPARTATE AMINO TRANSFERASE 17 U/L (10-37); BILIRUBIN,TOTAL 0.4 MG/DL (0.1-1.0); BLOOD UREA NITROGEN 58 MG/DL (7-18); BUN/CREATININE RATIO 38.2 (6.6-38.0); CALCIUM 8.7 MG/DL (8.5-10.1); CHLORIDE 103 MMOL/L (99-107); CREATININE 1.52 MG/DL (0.40-0.90); GLUCOSE 113 MG/DL (70-104); PHOSPHORUS 3.9 MG/DL (2.3-4.5); POTASSIUM 3.4 MMOL/L (3.5-5.1); SODIUM 144 MMOL/L (135-145); TOTAL CARBON DIOXIDE 30.3 MMOL/L (24-32); TOTAL PROTEIN 6.9 G/DL (6.4-8.2); eGFR 35 ML/MIN
[2017-10-13] MEDS: metoclopramide 5 mg/ml inj IV PRN ×3 (07:35→23:42)
[2017-10-13] MEDS: levoFLOXACIN-Levaquin 250mg/D5 50 ML IV SCH (07:39)
[2017-10-13] MEDS: venlafaxine 37.5mg tablet PO SCH ×2 (07:42→20:21)
[2017-10-13] MEDS: levoTHYROXINE 100mcg tablet PO SCH (07:43)
[2017-10-13] MEDS: gabapentin 300mg capsule PO SCH ×2 (07:43→20:20)
[2017-10-13] MEDS: loratadine 10mg tablet PO SCH (07:44)
[2017-10-13] MEDS: aspirin 81mg tablet.DR PO SCH (07:44)
[2017-10-13] MEDS: docusate sod 100mg capsule PO SCH ×2 (07:44→20:20)
[2017-10-13] MEDS: lisinopril 10 MG tablet PO SCH (07:44)
[2017-10-13] MEDS: busPIRone 15mg tablet PO SCH ×3 (07:44→20:20)
[2017-10-13] MEDS: montelukast 10mg tablet PO SCH (07:45)
[2017-10-13] MEDS: atorvastatin 20mg tablet PO SCH (07:45)
[2017-10-13] MEDS: lactobacillus rhamnosus 10,000 MMU CELLS/CAPSULE PO SCH ×2 (07:45→20:20)
[2017-10-13] MEDS: heparin, porcine 5000 units/ml vial SQ SCH ×2 (07:46→20:18)
[2017-10-13] MEDS ORDERED: [UNRECOGNIZED DRUG - OTHER] INH SCH (08:00)
[2017-10-13] MEDS ORDERED: FORMOTEROL FUMARATE INH SCH (08:00)
[2017-10-13] MEDS ORDERED: BUDESONIDE INH SCH (08:00)
[2017-10-13] MEDS ORDERED: loratadine 10mg tablet PO SCH (08:00)
[2017-10-13] MEDS: ipratropium/albuterol 3ml nebule NEB SCH ×5 (08:16→23:26)
[2017-10-13] MEDS: furosemide 40mg/4ml inj IV SCH ×2 (09:30→20:14)
[2017-10-13 11:00] VITALS: BP 158/89
[2017-10-13 15:00] VITALS: BP 170/87
[2017-10-13] MEDS: potassium Cl 20 mEq SR tablet PO PRN ×2 (16:59→20:59)
[2017-10-13 17:30] VITALS: BP 146/90
[2017-10-13] MEDS: traZODone 50mg tablet PO SCH (20:20)
[2017-10-13] MEDS: latanoprost 0.005% 2.5ml ophthalmic drops EACHEYE SCH (20:21)
[2017-10-13] MEDS: normal saline 1000ml 1,000 ML IV SCH ×2 (20:36→23:43)
[2017-10-13] MEDS: insulin glargine (Lantus) pen - multi-dose SQ SCH (21:00)
[2017-10-13 22:00] VITALS: BP 145/87
[2017-10-14] MEDS: methylPREDNISolone sod succ 125mg/2ml vial IV SCH (01:52)
[2017-10-14 02:00] VITALS: BP 140/91
[2017-10-14 04:41] LABS: BASOPHILS % (AUTO) 0.2 % (0-1); EOSINOPHILS # (AUTO) 0.2 X10'3 (0-0.9); EOSINOPHILS % (AUTO) 1.1 % (0-6); HEMATOCRIT 33.7 % (35.0-45.0); HEMOGLOBIN 11.1 g/dl (12.0-16.0); LYMPHOCYTES # (AUTO) 0.7 X10'3 (1.1-4.8); LYMPHOCYTES % (AUTO) 5.1 % (21-51); MEAN CORPUSCULAR HEMOGLOBIN 29.1 PG (27.0-31.0); MEAN CORPUSCULAR VOLUME 88.1 FL (78-98); MONOCYTES # (AUTO) 0.6 X10'3 (0-0.9); MONOCYTES % (AUTO) 4.5 % (2-12); NEUTROPHILS # (AUTO) 12.6 X10'3 (1.8-7.7); NEUTROPHILS % (AUTO) 89.1 % (42-75); PLATELET COUNT 343 X10'3 (140-440); RED BLOOD COUNT 3.83 X10'6 (4.20-5.60); RED CELL DISTRIBUTION WIDTH 13.9 % (11.5-14.5); WHITE BLOOD COUNT 14.1 X10'3 (4.5-11.0)
[2017-10-14 04:56] LABS: ALANINE AMINOTRANSFERASE 21 U/L (12-78); ALBUMIN/GLOBULIN RATIO 0.8 (1.1-1.5); ALKALINE PHOSPHATASE 45 IU/L (46-116); ANION GAP 8 (8-16); ASPARTATE AMINO TRANSFERASE 21 U/L (10-37); BILIRUBIN,TOTAL 0.3 MG/DL (0.1-1.0); BLOOD UREA NITROGEN 52 MG/DL (7-18); BUN/CREATININE RATIO 31.9 (6.6-38.0); CALCIUM 8.4 MG/DL (8.5-10.1); CHLORIDE 102 MMOL/L (99-107); CREATININE 1.63 MG/DL (0.40-0.90); GLUCOSE 155 MG/DL (70-104); PHOSPHORUS 3.7 MG/DL (2.3-4.5); POTASSIUM 4.1 MMOL/L (3.5-5.1); SODIUM 144 MMOL/L (135-145); TOTAL PROTEIN 6.9 G/DL (6.4-8.2); eGFR 32 ML/MIN
[2017-10-14] MEDS: acetaminophen 325mg tablet PO PRN (05:54)
[2017-10-14 06:35] VITALS: BP 148/88
[2017-10-14] MEDS: ipratropium/albuterol 3ml nebule NEB SCH ×2 (07:32→12:04)
[2017-10-14] MEDS ORDERED: pantoprazole 40mg Tablet.DR PO SCH (08:00)
[2017-10-14] MEDS ORDERED: lurasidone 20mg tablet PO SCH (08:00)
[2017-10-14] MEDS: ondansetron/PF 4mg/2ml inj IV PRN (08:17)
[2017-10-14] MEDS ORDERED: prednisone 10mg tablet PO SCH (08:20)
[2017-10-14] MEDS ORDERED: levoFLOXACIN 500mg tablet PO SCH (08:20)
[2017-10-14] MEDS: venlafaxine 37.5mg tablet PO SCH (08:44)
[2017-10-14] MEDS: loratadine 10mg tablet PO SCH (08:44)
[2017-10-14] MEDS: levoTHYROXINE 100mcg tablet PO SCH (08:44)
[2017-10-14] MEDS: busPIRone 15mg tablet PO SCH (08:45)
[2017-10-14] MEDS: montelukast 10mg tablet PO SCH (08:45)
[2017-10-14] MEDS: atorvastatin 20mg tablet PO SCH (08:45)
[2017-10-14] MEDS: gabapentin 300mg capsule PO SCH (08:45)
[2017-10-14] MEDS: lactobacillus rhamnosus 10,000 MMU CELLS/CAPSULE PO SCH (08:46)
[2017-10-14] MEDS: docusate sod 100mg capsule PO SCH (08:46)
[2017-10-14] MEDS: aspirin 81mg tablet.DR PO SCH (08:46)
[2017-10-14] MEDS: heparin, porcine 5000 units/ml vial SQ SCH (08:47)
[2017-10-14 11:00] VITALS: BP 142/90
== END 2017-10-14 13:15 | DRG 130 ==
LOC: ER 10:22 → ED HOLD 12:29 → CICU 2S 16:01 → PCU 3S 10-13 01:01
PROVIDERS: ADMIT Internal Medicine Critical Care Medicine; ATTEND Internal Medicine Critical Care Medicine
PROC: 5A1955Z Respiratory Ventilation, Greater than 96 Consecutive Hours (ICD-10-PCS; principal; 2017-10-05)
PROC: 0BH17EZ Insertion of Endotracheal Airway into Trachea, Via Natural or Artificial Opening (ICD-10-PCS; 2017-10-05)
PROC: 02HV33Z Insertion of Infusion Device into Superior Vena Cava, Percutaneous Approach (ICD-10-PCS; 2017-10-05)
PROC: B548ZZA Ultrasonography of Superior Vena Cava, Guidance (ICD-10-PCS; 2017-10-05)
PROC: 5A09357 Assistance with Respiratory Ventilation, Less than 24 Consecutive Hours, Continuous Positive Airway Pressure (ICD-10-PCS; 2017-10-12)
DX: J96.20 Acute and chronic respiratory failure, unspecified whether with hypoxia or hypercapnia (principal); G93.40 Encephalopathy, unspecified; N17.9 Acute kidney failure, unspecified; E11.22 Type 2 diabetes mellitus with diabetic chronic kidney disease; E11.42 Type 2 diabetes mellitus with diabetic polyneuropathy; N18.3 Chronic kidney disease, stage 3 (moderate); I50.9 Heart failure, unspecified; I13.0 Hypertensive heart and chronic kidney disease with heart failure and stage 1 through stage 4 chronic kidney disease, or unspecified chronic kidney disease; E66.01 Morbid (severe) obesity due to excess calories; D64.9 Anemia, unspecified; F31.9 Bipolar disorder, unspecified; F41.9 Anxiety disorder, unspecified; G47.30 Sleep apnea, unspecified; G89.4 Chronic pain syndrome; J44.9 Chronic obstructive pulmonary disease, unspecified; E87.5 Hyperkalemia; M19.90 Unspecified osteoarthritis, unspecified site; Z87.891 Personal history of nicotine dependence; Z90.710 Acquired absence of both cervix and uterus; Z88.0 Allergy status to penicillin; Z91.040 Latex allergy status; Z88.2 Allergy status to sulfonamides; Z88.1 Allergy status to other antibiotic agents; Z88.6 Allergy status to analgesic agent; Z88.5 Allergy status to narcotic agent; Z87.01 Personal history of pneumonia (recurrent); Z68.43 Body mass index [BMI] 50.0-59.9, adult
CPT/HCPCS: 36415; 36556; 36600; 70450; 71045; 80053; 80305; 80320; 81003; 82803; 82810; 82948; 83036; 83605; 83735; 84100; 84132; 84134; 84145; 84439; 84443; 85018; 85025; 85610; 85730; 87040; 87070; 87077; 87186; 93005; 94002; 94003; 94640; 94667; 94668; 94760; 96365; 96368; 96375; 97110; 97161; 97530; 99291; A6213; A6222; A6257; A6402; A7015; C1751; C1758; J1644; J1815; J1940; J1956; J2060; J2212; J2250; J2405; J2765; J2930; J3010; J3480; J3490; J7030

== ENCOUNTER 2017-12-02 14:37 | Inpatient (IN) | payer MEDICAID ==
[2017-12-02] VITALS (8 sets, daily range): BP systolic 70–106; BP diastolic 52–62
[~2017-12-02] VITALS: Ht 157.5 cm; Wt 108.3 kg
[~2017-12-02 14:37] MED LIST changes: -BECL7.3A7 INH; +BUDE10.22 INH; +BUPR200T2 PO; +BUSP10TA11 PO; -BUSP15TA12 PO; +EFF25T PO; +ERGO500041 PO; -FLUT1AER INH; -HYDR-3686 PO; -LEVO250T58 PO; -LISI10TA PO; -LORA-512 PO; +LORA10TA65 PO; +LURA20TA PO; +NORepinephrine bitartrate 8 MG in NS 250 ML BAG (32 mcg/ml) IV ONE; +OMEP40CA37 PO; +SPIR25TA5 PO; -VENL150T3 PO
[2017-12-02] MEDS ORDERED: dexamethasone sod phosphate 10mg/ml inj IV STA (14:49)
[2017-12-02] MEDS ORDERED: MIDAZolam 5mg/ml 2ml vial IV ONE (14:50)
[2017-12-02] MEDS ORDERED: etomidate 2mg/ml inj. IV ONE (14:50)
[2017-12-02] MEDS ORDERED: rocuronium 10mg/ml inj IV ONE (14:50)
[2017-12-02] MEDS: propofol 1000mg/100ml bottle 100 ML IV ONE ×2 (15:15→15:32)
[2017-12-02 15:19] LABS: BASOPHILS % (AUTO) 0.2 % (0-1); EOSINOPHILS # (AUTO) 0.2 X10'3 (0-0.9); HEMATOCRIT 34.6 % (35.0-45.0); HEMOGLOBIN 11.7 g/dl (12.0-16.0); LYMPHOCYTES % (AUTO) 5.8 % (21-51); MEAN CORPUSCULAR HEMOGLOBIN 29.5 PG (27.0-31.0); MEAN CORPUSCULAR HGB CONC 33.7 % (33.0-36.5); MEAN CORPUSCULAR VOLUME 87.5 FL (78-98); MEAN PLATELET VOLUME 7.8 FL (7.4-10.4); MONOCYTES # (AUTO) 0.3 X10'3 (0-0.9); MONOCYTES % (AUTO) 1.6 % (2-12); NEUTROPHILS # (AUTO) 16.5 X10'3 (1.8-7.7); NEUTROPHILS % (AUTO) 91.4 % (42-75); PLATELET COUNT 214 X10'3 (140-440); RED BLOOD COUNT 3.96 X10'6 (4.20-5.60); RED CELL DISTRIBUTION WIDTH 15.4 % (11.5-14.5); WHITE BLOOD COUNT 18.1 X10'3 (4.5-11.0)
[2017-12-02 15:28] LABS: CLARITY,URINE CLEAR (Clear); COLOR,URINE YELLOW (Yellow); GLUCOSE, URINE NEGATIVE (Neg); KETONES,URINE NEGATIVE (Neg); LEUKOCYTE ESTERASE ,URINE NEGATIVE (Neg); NITRITES, URINE NEGATIVE (Neg); OCCULT BLOOD,URINE TRACE-INTACT (Neg); PH,URINE 5.5 (4.8-8.0); PROTEIN,URINE NEGATIVE (Neg); UROBILINOGEN,URINE 0.2 E.U/dL (0.2-1.0)
[2017-12-02 15:30] LABS: PARTIAL THROMBOPLASTIN TIME 29 SECONDS (22-32); PROTHROMBIN TIME 10.6 SECONDS (9.0-12.0)
[2017-12-02 15:30] LABS: UA COLLECTION TYPE FOLEY CATH
[2017-12-02 15:34] LABS: SQUAMOUS EPITHELIAL CELL,UR FEW /LPF (FEW)
[2017-12-02 15:35] LABS: BACTERIA,URINE FEW /HPF (Neg); RBC,URINE 0-2 /HPF (0-2); WBC,URINE 0-4 /HPF (0-4)
[2017-12-02 15:35] LABS: ABG BASE EXCESS 7.7 mmol/L (-2.0-3.0); ABG HCO3 34.4 mmol/L (22.0-26.0); ABG OXYGEN SATURATION 99.1 % (95-98); ABG PCO2 (T) 65.7 mmHg (32.0-45.0); ABG PH (T) 7.349 (7.350-7.450); ABG PO2 (T) 272.9 mmHg (83-108); ALLEN'S TEST Positive; FCOHb 1.2 % (0.5-1.5); FMetHb 0.2 % (0.3-1.12); FO2Hb 97.7 % (94-100); MINUTE VOLUME 7 L/min; PATIENT TEMPERATURE 39.7; PEEP 5 cm H2O; RESPIRATORY RATE 18 b/min; RESPIRATORY RATE (OBSERVED) 18 b/min; TIDAL VOLUME 400 mL; TOTAL HEMOGLOBIN 12.4 G/dl (12.0-16.0)
[2017-12-02] MEDS ORDERED: acetaminophen 120MG suppository, rectal RC ONE (15:35)
[2017-12-02 15:36] LABS: ALANINE AMINOTRANSFERASE 21 U/L (12-78); ALBUMIN 2.9 G/DL (3.4-5.0); ALBUMIN/GLOBULIN RATIO 0.7 (1.1-1.5); ALKALINE PHOSPHATASE 57 IU/L (46-116); ANION GAP 8 (8-16); ASPARTATE AMINO TRANSFERASE 21 U/L (10-37); BILIRUBIN,TOTAL 0.5 MG/DL (0.1-1.0); BLOOD UREA NITROGEN 32 MG/DL (7-18); CALCIUM 8.7 MG/DL (8.5-10.1); CHLORIDE 100 MMOL/L (99-107); CREATININE 2.14 MG/DL (0.40-0.90); GLUCOSE 135 MG/DL (70-104); POTASSIUM 4.3 MMOL/L (3.5-5.1); SODIUM 143 MMOL/L (135-145); TOTAL CARBON DIOXIDE 35.3 MMOL/L (24-32); TOTAL PROTEIN 7.3 G/DL (6.4-8.2); eGFR 23 ML/MIN
[2017-12-02] MEDS ORDERED: normal saline 1000ML IV soln IV ONE (15:40)
[2017-12-02] MEDS ORDERED: levoFLOXACIN-Levaquin 750MG/D5 150 ML IV ONE (15:40)
[2017-12-02] MEDS ORDERED: vancomycin/NS 1 GM ADD-VANTAGE 250 ML IV ONE (15:40)
[2017-12-02] MEDS ORDERED: acetaminophen 650mg rectal suppository RC ONE (15:45)
[2017-12-02] MEDS: midazolam 100mg in NS 100ml 100 ML IV SCH (15:53)
[2017-12-02 16:00] LABS: PLATELET ESTIMATE NORMAL; TOTAL CELLS COUNTED 100
[2017-12-02] MEDS ORDERED: magnesium Cl slow-release 64mg tablet PO PRN (16:20)
[2017-12-02] MEDS ORDERED: magnesium hydroxide 30ml (MOM) UD suspension PO PRN (16:20)
[2017-12-02] MEDS ORDERED: bisacodyl 10mg suppository rectal RC PRN (16:20)
[2017-12-02] MEDS ORDERED: magnesium 4gm in 100ml NS 100 ML IV PRN (16:20)
[2017-12-02] MEDS ORDERED: sodium phosphate inj. 30 MMOL in dextrose 5%-water 250 ML IV PRN (16:20)
[2017-12-02] MEDS ORDERED: Neutra Phos packet PO PRN (16:20)
[2017-12-02] MEDS ORDERED: acetaminophen 325mg tablet PO PRN ×2 (16:20)
[2017-12-02] MEDS ORDERED: sodium phosphate inj. 15 MMOL in dextrose 5%-water 150 ML IV PRN (16:20)
[2017-12-02] MEDS ORDERED: SYN0.088T PO (16:20)
[2017-12-02] MEDS ORDERED: magnesium 2GM in 50ml NS 50 ML IV PRN (16:20)
[2017-12-02] MEDS ORDERED: potassium Cl 20 mEq SR tablet PO PRN ×2 (16:20)
[2017-12-02] MEDS ORDERED: ondansetron/PF 4mg/2ml inj IV PRN (16:20)
[2017-12-02] MEDS ORDERED: non-formulary drug ([Oxygen] 2 L) NS PRN (16:30)
[2017-12-02] MEDS: K, MAG and/or Phos replacement - Verify level? MC SCH (16:33)
[2017-12-02] MEDS: pantoprazole 40 MG vial IV SCH (17:07)
[2017-12-02] MEDS ORDERED: albuterol 2.5 MG/3 ML nebule NEB SCH (19:00)
[2017-12-02] MEDS: BUDESONIDE 0.25 MG/2 ML AMPUL.NEB IH SCH (19:04)
[2017-12-02] MEDS: loratadine 10mg tablet PO SCH (19:35)
[2017-12-02] MEDS: aspirin 81mg tablet.DR PO SCH (19:36)
[2017-12-02] MEDS: lurasidone 20mg tablet PO SCH (19:36)
[2017-12-02] MEDS: furosemide 20MG tablet PO SCH (19:36)
[2017-12-02] MEDS: montelukast 10mg tablet PO SCH (19:37)
[2017-12-02] MEDS: pantoprazole 40mg Tablet.DR PO SCH (19:37)
[2017-12-02] MEDS: levoTHYROXINE 100mcg tablet PO SCH (19:37)
[2017-12-02] MEDS ORDERED: buPROPion SR 100mg tab PO SCH (20:00)
[2017-12-02] MEDS ORDERED: ipratropium 0.5 MG/2.5ML nebule IH SCH (20:00)
[2017-12-02] MEDS: NORepinephrine 8mg/ 250ml NS 250 ML IV SCH (21:32)
[2017-12-02] MEDS: docusate sod 100mg capsule PO SCH (21:33)
[2017-12-02] MEDS: spironolactone 25 MG tablet PO SCH (21:33)
[2017-12-02] MEDS: traZODone 50mg tablet PO SCH (21:34)
[2017-12-02] MEDS: busPIRone 15mg tablet PO SCH (21:35)
[2017-12-02] MEDS: venlafaxine 25mg tablet PO SCH (21:35)
[2017-12-02] MEDS: heparin, porcine 5000 units/ml vial SQ SCH (21:36)
[2017-12-02] MEDS: buPROPion 100mg tablet PO SCH (21:36)
[2017-12-02] MEDS: latanoprost 0.005% 2.5ml ophthalmic drops EACHEYE SCH (21:37)
[2017-12-02] MEDS: normal saline 1000ml 1,000 ML IV SCH (21:37)
[2017-12-02] MEDS: gabapentin 400mg capsule PO SCH (21:38)
[2017-12-02 22:57] LABS: CREATININE 1.76 MG/DL (0.40-0.90); eGFR 29 ML/MIN
[2017-12-02] MEDS: ipratropium/albuterol 3ml nebule NEB SCH (23:09)
[2017-12-03] VITALS (22 sets, daily range): BP systolic 86–130; BP diastolic 60–89
[2017-12-03 03:22] LABS: BASOPHILS % (AUTO) 0 % (0-1); EOSINOPHILS # (AUTO) 0.1 X10'3 (0-0.9); EOSINOPHILS % (AUTO) 0.5 % (0-6); HEMATOCRIT 31.1 % (35.0-45.0); HEMOGLOBIN 10.3 g/dl (12.0-16.0); LYMPHOCYTES # (AUTO) 0.7 X10'3 (1.1-4.8); LYMPHOCYTES % (AUTO) 2.8 % (21-51); MEAN CORPUSCULAR HEMOGLOBIN 29.1 PG (27.0-31.0); MEAN CORPUSCULAR VOLUME 88.2 FL (78-98); MEAN PLATELET VOLUME 8.4 FL (7.4-10.4); MONOCYTES # (AUTO) 0.7 X10'3 (0-0.9); MONOCYTES % (AUTO) 2.8 % (2-12); NEUTROPHILS # (AUTO) 23.9 X10'3 (1.8-7.7); NEUTROPHILS % (AUTO) 93.9 % (42-75); PLATELET COUNT 204 X10'3 (140-440); RED BLOOD COUNT 3.53 X10'6 (4.20-5.60); RED CELL DISTRIBUTION WIDTH 14.9 % (11.5-14.5)
[2017-12-03] MEDS: ipratropium/albuterol 3ml nebule NEB SCH ×6 (03:31→23:14)
[2017-12-03 03:45] LABS: ABG BASE EXCESS 5.9 mmol/L (-2.0-3.0); ABG HCO3 32.1 mmol/L (22.0-26.0); ABG OXYGEN SATURATION 94.3 % (95-98); ABG PCO2 (T) 54.2 mmHg (32.0-45.0); ABG PH (T) 7.389 (7.350-7.450); ABG PO2 (T) 71.8 mmHg (83-108); ALLEN'S TEST Positive; FCOHb 0.3 % (0.5-1.5); FMetHb 0.3 % (0.3-1.12); FO2Hb 93.7 % (94-100); MINUTE VOLUME 9 L/min; PATIENT TEMPERATURE 36.6; PEEP 5 cm H2O; RESPIRATORY RATE 20 b/min; RESPIRATORY RATE (OBSERVED) 20 b/min; TIDAL VOLUME 400 mL; TOTAL HEMOGLOBIN 10.9 G/dl (12.0-16.0)
[2017-12-03 03:47] LABS: WHITE BLOOD COUNT 25.5 X10'3 (4.5-11.0)
[2017-12-03 03:58] LABS: ALANINE AMINOTRANSFERASE 21 U/L (12-78); ALBUMIN 2.3 G/DL (3.4-5.0); ALBUMIN/GLOBULIN RATIO 0.6 (1.1-1.5); ALKALINE PHOSPHATASE 54 IU/L (46-116); ANION GAP 7 (8-16); ASPARTATE AMINO TRANSFERASE 17 U/L (10-37); BILIRUBIN,TOTAL 0.4 MG/DL (0.1-1.0); BLOOD UREA NITROGEN 29 MG/DL (7-18); BUN/CREATININE RATIO 18.5 (6.6-38.0); CHLORIDE 104 MMOL/L (99-107); CREATININE 1.57 MG/DL (0.40-0.90); GLUCOSE 173 MG/DL (70-104); MAGNESIUM 1.6 MG/DL (1.5-2.4); PHOSPHORUS 3.2 MG/DL (2.3-4.5); POTASSIUM 3.9 MMOL/L (3.5-5.1); SODIUM 142 MMOL/L (135-145); TOTAL CARBON DIOXIDE 30.8 MMOL/L (24-32); TOTAL PROTEIN 6.2 G/DL (6.4-8.2); TROPONIN I < 0.04 NG/ML (0.0-0.05); eGFR 33 ML/MIN
[2017-12-03 04:22] LABS: PLATELET ESTIMATE NORMAL; TOTAL CELLS COUNTED 100; TOXIC GRANULATION 1+; TOXIC VACUOLATION 1+
[2017-12-03] MEDS: BUDESONIDE 0.25 MG/2 ML AMPUL.NEB IH SCH ×2 (07:10→23:14)
[2017-12-03] MEDS: levoFLOXACIN-Levaquin 500mg/D5 100 ML IV SCH (07:42)
[2017-12-03] MEDS: spironolactone 25 MG tablet PO SCH ×2 (07:43→21:19)
[2017-12-03] MEDS: docusate sod 100mg capsule PO SCH ×2 (07:43→21:18)
[2017-12-03] MEDS: aspirin 81mg tablet.DR PO SCH (07:44)
[2017-12-03] MEDS: gabapentin 400mg capsule PO SCH ×2 (07:44→21:18)
[2017-12-03] MEDS: loratadine 10mg tablet PO SCH (07:44)
[2017-12-03] MEDS: venlafaxine 25mg tablet PO SCH ×2 (07:45→21:19)
[2017-12-03] MEDS: montelukast 10mg tablet PO SCH (07:46)
[2017-12-03] MEDS: pravastatin 40mg tablet PO SCH (07:46)
[2017-12-03] MEDS: furosemide 20MG tablet PO SCH (07:46)
[2017-12-03] MEDS: levoTHYROXINE 100mcg tablet PO SCH (07:46)
[2017-12-03] MEDS: buPROPion 100mg tablet PO SCH ×2 (07:46→21:31)
[2017-12-03] MEDS: heparin, porcine 5000 units/ml vial SQ SCH ×2 (07:48→21:18)
[2017-12-03] MEDS: pantoprazole 40 MG vial IV SCH (07:48)
[2017-12-03] MEDS: pantoprazole 40mg Tablet.DR PO SCH (08:00)
[2017-12-03] MEDS: K, MAG and/or Phos replacement - Verify level? MC SCH (08:00)
[2017-12-03] MEDS: NORepinephrine 8mg/ 250ml NS 250 ML IV SCH (08:13)
[2017-12-03] MEDS: lurasidone 20mg tablet PO SCH (08:13)
[2017-12-03] MEDS: normal saline 1000ml 1,000 ML IV SCH ×2 (08:14→18:59)
[2017-12-03] MEDS: midazolam 100mg in NS 100ml 100 ML IV SCH (09:25)
[2017-12-03] MEDS: busPIRone 15mg tablet PO SCH ×3 (09:25→21:19)
[2017-12-03] MEDS: morphine 4 MG/ML inj SYRINge IV PRN (10:21)
[2017-12-03] MEDS: traZODone 50mg tablet PO SCH (21:18)
[2017-12-03] MEDS: latanoprost 0.005% 2.5ml ophthalmic drops EACHEYE SCH (21:31)
[2017-12-04] VITALS (22 sets, daily range): BP systolic 99–137; BP diastolic 53–89
[2017-12-04] MEDS: normal saline 1000ml 1,000 ML IV SCH ×2 (01:31→22:10)
[2017-12-04] MEDS: ipratropium/albuterol 3ml nebule NEB SCH ×6 (03:12→23:10)
[2017-12-04 03:31] LABS: ABG BASE EXCESS 5.6 mmol/L (-2.0-3.0); ABG HCO3 31.3 mmol/L (22.0-26.0); ABG OXYGEN SATURATION 96.6 % (95-98); ABG PCO2 (T) 50.8 mmHg (32.0-45.0); ABG PH (T) 7.407 (7.350-7.450); ABG PO2 (T) 91.6 mmHg (83-108); ALLEN'S TEST Positive; FCOHb 0.3 % (0.5-1.5); FMetHb 0.1 % (0.3-1.12); FO2Hb 96.2 % (94-100); MINUTE VOLUME 10 L/min; PATIENT TEMPERATURE 36.9; PEEP 5 cm H2O; RESPIRATORY RATE 20 b/min; RESPIRATORY RATE (OBSERVED) 23 b/min; TIDAL VOLUME 400 mL
[2017-12-04 03:40] LABS: BASOPHILS % (AUTO) 0 % (0-1); EOSINOPHILS % (AUTO) 0 % (0-6); HEMATOCRIT 28.3 % (35.0-45.0); HEMOGLOBIN 9.4 g/dl (12.0-16.0); LYMPHOCYTES # (AUTO) 0.9 X10'3 (1.1-4.8); LYMPHOCYTES % (AUTO) 5.7 % (21-51); MEAN CORPUSCULAR HEMOGLOBIN 29.1 PG (27.0-31.0); MEAN CORPUSCULAR VOLUME 88.1 FL (78-98); MEAN PLATELET VOLUME 8.3 FL (7.4-10.4); MONOCYTES # (AUTO) 0.5 X10'3 (0-0.9); MONOCYTES % (AUTO) 3.1 % (2-12); NEUTROPHILS # (AUTO) 15.3 X10'3 (1.8-7.7); NEUTROPHILS % (AUTO) 91.2 % (42-75); PLATELET COUNT 215 X10'3 (140-440); RED BLOOD COUNT 3.22 X10'6 (4.20-5.60); RED CELL DISTRIBUTION WIDTH 14.9 % (11.5-14.5); WHITE BLOOD COUNT 16.8 X10'3 (4.5-11.0)
[2017-12-04 03:41] LABS: ALANINE AMINOTRANSFERASE 19 U/L (12-78); ALBUMIN 2.1 G/DL (3.4-5.0); ALBUMIN/GLOBULIN RATIO 0.5 (1.1-1.5); ALKALINE PHOSPHATASE 51 IU/L (46-116); ANION GAP 6 (8-16); ASPARTATE AMINO TRANSFERASE 14 U/L (10-37); BILIRUBIN,TOTAL 0.2 MG/DL (0.1-1.0); BLOOD UREA NITROGEN 31 MG/DL (7-18); CALCIUM 8.4 MG/DL (8.5-10.1); CHLORIDE 105 MMOL/L (99-107); CREATININE 1.24 MG/DL (0.40-0.90); GLUCOSE 133 MG/DL (70-104); MAGNESIUM 1.6 MG/DL (1.5-2.4); PHOSPHORUS 2.8 MG/DL (2.3-4.5); POTASSIUM 3.8 MMOL/L (3.5-5.1); SODIUM 145 MMOL/L (135-145); TOTAL CARBON DIOXIDE 34.1 MMOL/L (24-32); TOTAL PROTEIN 6.1 G/DL (6.4-8.2); eGFR 44 ML/MIN
[2017-12-04 04:49] LABS: PLATELET ESTIMATE NORMAL; TOTAL CELLS COUNTED 100
[2017-12-04] MEDS: BUDESONIDE 0.25 MG/2 ML AMPUL.NEB IH SCH ×2 (07:24→19:01)
[2017-12-04] MEDS: K, MAG and/or Phos replacement - Verify level? MC SCH (08:00)
[2017-12-04] MEDS: pantoprazole 40mg Tablet.DR PO SCH (08:00)
[2017-12-04] MEDS: levoFLOXACIN-Levaquin 500mg/D5 100 ML IV SCH (08:54)
[2017-12-04] MEDS: docusate sod 100mg capsule PO SCH ×2 (08:55→20:49)
[2017-12-04] MEDS: lurasidone 20mg tablet PO SCH (08:55)
[2017-12-04] MEDS: loratadine 10mg tablet PO SCH (08:55)
[2017-12-04] MEDS: montelukast 10mg tablet PO SCH (08:55)
[2017-12-04] MEDS: spironolactone 25 MG tablet PO SCH ×2 (08:55→21:09)
[2017-12-04] MEDS: aspirin 81mg tablet.DR PO SCH (08:56)
[2017-12-04] MEDS: busPIRone 15mg tablet PO SCH ×3 (08:56→20:48)
[2017-12-04] MEDS: furosemide 20MG tablet PO SCH (08:56)
[2017-12-04] MEDS: levoTHYROXINE 100mcg tablet PO SCH (08:56)
[2017-12-04] MEDS: pravastatin 40mg tablet PO SCH (08:56)
[2017-12-04] MEDS: gabapentin 400mg capsule PO SCH (08:57)
[2017-12-04] MEDS: buPROPion 100mg tablet PO SCH ×2 (08:57→20:49)
[2017-12-04] MEDS: heparin, porcine 5000 units/ml vial SQ SCH ×2 (08:57→20:48)
[2017-12-04] MEDS: pantoprazole 40 MG vial IV SCH (08:57)
[2017-12-04] MEDS: venlafaxine 25mg tablet PO SCH ×2 (10:50→20:49)
[2017-12-04] MEDS: midazolam 100mg in NS 100ml 100 ML IV SCH (10:57)
[2017-12-04] MEDS: NORepinephrine 8mg/ 250ml NS 250 ML IV SCH (17:40)
[2017-12-04] MEDS ORDERED: VANCOMYCIN LEVEL IV ONE (19:30)
[2017-12-04] MEDS: gabapentin 300mg capsule PO SCH (20:48)
[2017-12-04] MEDS: lactobacillus rhamnosus 10,000 MMU CELLS/CAPSULE PO SCH (20:49)
[2017-12-04] MEDS: latanoprost 0.005% 2.5ml ophthalmic drops EACHEYE SCH (20:50)
[2017-12-04] MEDS: traZODone 50mg tablet PO SCH (21:10)
[2017-12-05] VITALS (23 sets, daily range): BP systolic 87–126; BP diastolic 55–90
[2017-12-05 02:37] LABS: BASOPHILS % (AUTO) 0.1 % (0-1); EOSINOPHILS % (AUTO) 0.1 % (0-6); HEMATOCRIT 25.9 % (35.0-45.0); HEMOGLOBIN 8.6 g/dl (12.0-16.0); LYMPHOCYTES # (AUTO) 1.4 X10'3 (1.1-4.8); LYMPHOCYTES % (AUTO) 11.8 % (21-51); MEAN CORPUSCULAR HEMOGLOBIN 29.4 PG (27.0-31.0); MEAN CORPUSCULAR HGB CONC 33.3 % (33.0-36.5); MEAN CORPUSCULAR VOLUME 88.3 FL (78-98); MEAN PLATELET VOLUME 8.1 FL (7.4-10.4); MONOCYTES # (AUTO) 0.5 X10'3 (0-0.9); NEUTROPHILS # (AUTO) 9.8 X10'3 (1.8-7.7); PLATELET COUNT 212 X10'3 (140-440); RED BLOOD COUNT 2.93 X10'6 (4.20-5.60); RED CELL DISTRIBUTION WIDTH 14.7 % (11.5-14.5); WHITE BLOOD COUNT 11.7 X10'3 (4.5-11.0)
[2017-12-05 02:51] LABS: ALANINE AMINOTRANSFERASE 20 U/L (12-78); ALBUMIN/GLOBULIN RATIO 0.5 (1.1-1.5); ALKALINE PHOSPHATASE 51 IU/L (46-116); ANION GAP 4 (8-16); ASPARTATE AMINO TRANSFERASE 16 U/L (10-37); BILIRUBIN,TOTAL 0.2 MG/DL (0.1-1.0); BLOOD UREA NITROGEN 30 MG/DL (7-18); BUN/CREATININE RATIO 25.9 (6.6-38.0); CALCIUM 8.2 MG/DL (8.5-10.1); CHLORIDE 104 MMOL/L (99-107); CREATININE 1.16 MG/DL (0.40-0.90); GLUCOSE 111 MG/DL (70-104); MAGNESIUM 1.5 MG/DL (1.5-2.4); PHOSPHORUS 2.6 MG/DL (2.3-4.5); POTASSIUM 3.4 MMOL/L (3.5-5.1); SODIUM 144 MMOL/L (135-145); TOTAL CARBON DIOXIDE 36.5 MMOL/L (24-32); TOTAL PROTEIN 5.7 G/DL (6.4-8.2); eGFR 47 ML/MIN
[2017-12-05] MEDS: ipratropium/albuterol 3ml nebule NEB SCH ×6 (03:11→22:35)
[2017-12-05 03:31] LABS: ABG BASE EXCESS 10.5 mmol/L (-2.0-3.0); ABG OXYGEN SATURATION 95.2 % (95-98); ABG PCO2 (T) 53.4 mmHg (32.0-45.0); ABG PH (T) 7.446 (7.350-7.450); ABG PO2 (T) 80.9 mmHg (83-108); ALLEN'S TEST Positive; FCOHb 0.2 % (0.5-1.5); FMetHb 0.3 % (0.3-1.12); FO2Hb 94.7 % (94-100); MINUTE VOLUME 10 L/min; PATIENT TEMPERATURE 36.8; PEEP 5 cm H2O; RESPIRATORY RATE 20 b/min; RESPIRATORY RATE (OBSERVED) 22 b/min; TIDAL VOLUME 400 mL; TOTAL HEMOGLOBIN 9.7 G/dl (12.0-16.0)
[2017-12-05] MEDS ORDERED: potassium Cl 40MEQ/250ML bag 250 ML IV ONE (04:46)
[2017-12-05] MEDS: morphine 4 MG/ML inj SYRINge IV PRN ×3 (04:56→20:56)
[2017-12-05] MEDS: BUDESONIDE 0.25 MG/2 ML AMPUL.NEB IH SCH ×2 (07:10→19:08)
[2017-12-05] MEDS: pantoprazole 40 MG vial IV SCH (07:49)
[2017-12-05] MEDS: levoFLOXACIN-Levaquin 500mg/D5 100 ML IV SCH (07:49)
[2017-12-05] MEDS: heparin, porcine 5000 units/ml vial SQ SCH ×2 (07:50→20:47)
[2017-12-05] MEDS: montelukast 10mg tablet PO SCH (07:50)
[2017-12-05] MEDS: pravastatin 40mg tablet PO SCH (07:50)
[2017-12-05] MEDS: lurasidone 20mg tablet PO SCH (07:50)
[2017-12-05] MEDS: loratadine 10mg tablet PO SCH (07:50)
[2017-12-05] MEDS: levoTHYROXINE 100mcg tablet PO SCH (07:50)
[2017-12-05] MEDS: gabapentin 300mg capsule PO SCH ×2 (07:50→20:45)
[2017-12-05] MEDS: furosemide 20MG tablet PO SCH (07:51)
[2017-12-05] MEDS: aspirin 81mg tablet.DR PO SCH (07:51)
[2017-12-05] MEDS: busPIRone 15mg tablet PO SCH ×3 (07:51→20:47)
[2017-12-05] MEDS: lactobacillus rhamnosus 10,000 MMU CELLS/CAPSULE PO SCH ×2 (07:51→20:45)
[2017-12-05] MEDS: buPROPion 100mg tablet PO SCH ×2 (07:51→20:44)
[2017-12-05] MEDS: spironolactone 25 MG tablet PO SCH ×2 (07:51→20:46)
[2017-12-05] MEDS: pantoprazole 40mg Tablet.DR PO SCH (07:52)
[2017-12-05] MEDS: K, MAG and/or Phos replacement - Verify level? MC SCH (07:52)
[2017-12-05] MEDS: docusate sod 100mg capsule PO SCH ×2 (07:52→20:45)
[2017-12-05] MEDS: venlafaxine 25mg tablet PO SCH ×2 (08:59→20:45)
[2017-12-05] MEDS: normal saline 1000ml 1,000 ML IV SCH (10:59)
[2017-12-05] MEDS: traZODone 50mg tablet PO SCH (20:46)
[2017-12-05] MEDS: latanoprost 0.005% 2.5ml ophthalmic drops EACHEYE SCH (20:47)
[2017-12-06] VITALS (23 sets, daily range): BP systolic 84–119; BP diastolic 50–83
[2017-12-06] MEDS: morphine 4 MG/ML inj SYRINge IV PRN ×3 (02:34→12:53)
[2017-12-06 02:37] LABS: BASOPHILS % (AUTO) 0.2 % (0-1); EOSINOPHILS # (AUTO) 0.2 X10'3 (0-0.9); EOSINOPHILS % (AUTO) 1.6 % (0-6); HEMATOCRIT 27.8 % (35.0-45.0); HEMOGLOBIN 9.3 g/dl (12.0-16.0); LYMPHOCYTES # (AUTO) 1.9 X10'3 (1.1-4.8); LYMPHOCYTES % (AUTO) 18.6 % (21-51); MEAN CORPUSCULAR HEMOGLOBIN 29.4 PG (27.0-31.0); MEAN CORPUSCULAR HGB CONC 33.5 % (33.0-36.5); MEAN CORPUSCULAR VOLUME 87.8 FL (78-98); MEAN PLATELET VOLUME 7.9 FL (7.4-10.4); MONOCYTES # (AUTO) 0.6 X10'3 (0-0.9); MONOCYTES % (AUTO) 6.2 % (2-12); NEUTROPHILS # (AUTO) 7.5 X10'3 (1.8-7.7); NEUTROPHILS % (AUTO) 73.4 % (42-75); PLATELET COUNT 231 X10'3 (140-440); RED BLOOD COUNT 3.17 X10'6 (4.20-5.60); WHITE BLOOD COUNT 10.2 X10'3 (4.5-11.0)
[2017-12-06 02:52] LABS: ALANINE AMINOTRANSFERASE 20 U/L (12-78); ALBUMIN 2.3 G/DL (3.4-5.0); ALBUMIN/GLOBULIN RATIO 0.6 (1.1-1.5); ALKALINE PHOSPHATASE 58 IU/L (46-116); ANION GAP 5 (8-16); ASPARTATE AMINO TRANSFERASE 12 U/L (10-37); BILIRUBIN,TOTAL 0.2 MG/DL (0.1-1.0); BLOOD UREA NITROGEN 31 MG/DL (7-18); BUN/CREATININE RATIO 29.8 (6.6-38.0); CALCIUM 9.1 MG/DL (8.5-10.1); CHLORIDE 101 MMOL/L (99-107); CREATININE 1.04 MG/DL (0.40-0.90); GLUCOSE 93 MG/DL (70-104); MAGNESIUM 1.3 MG/DL (1.5-2.4); POTASSIUM 3.9 MMOL/L (3.5-5.1); PREALBUMIN 19.6 MG/DL (19-36); SODIUM 142 MMOL/L (135-145); TOTAL CARBON DIOXIDE 35.6 MMOL/L (24-32); TOTAL PROTEIN 6.3 G/DL (6.4-8.2); eGFR 54 ML/MIN
[2017-12-06] MEDS: ipratropium/albuterol 3ml nebule NEB SCH ×6 (03:33→23:12)
[2017-12-06 03:56] LABS: ABG BASE EXCESS 9.3 mmol/L (-2.0-3.0); ABG HCO3 34.8 mmol/L (22.0-26.0); ABG PCO2 (T) 52.3 mmHg (32.0-45.0); ABG PO2 (T) 76.9 mmHg (83-108); ALLEN'S TEST Positive; FCOHb 0.1 % (0.5-1.5); FMetHb 0.3 % (0.3-1.12); FO2Hb 94.6 % (94-100); MINUTE VOLUME 7 L/min; PATIENT TEMPERATURE 36.9; PEEP 5 cm H2O; RESPIRATORY RATE (OBSERVED) 19 b/min; TOTAL HEMOGLOBIN 10.1 G/dl (12.0-16.0)
[2017-12-06] MEDS: BUDESONIDE 0.25 MG/2 ML AMPUL.NEB IH SCH ×2 (06:48→18:56)
[2017-12-06] MEDS: heparin, porcine 5000 units/ml vial SQ SCH ×2 (07:43→20:37)
[2017-12-06] MEDS: levoFLOXACIN-Levaquin 500mg/D5 100 ML IV SCH (07:43)
[2017-12-06] MEDS: pantoprazole 40 MG vial IV SCH (07:43)
[2017-12-06] MEDS: aspirin 81mg tablet.DR PO SCH (07:45)
[2017-12-06] MEDS: levoTHYROXINE 100mcg tablet PO SCH (07:45)
[2017-12-06] MEDS: busPIRone 15mg tablet PO SCH ×3 (07:46→20:34)
[2017-12-06] MEDS: furosemide 20MG tablet PO SCH (07:46)
[2017-12-06] MEDS: buPROPion 100mg tablet PO SCH ×2 (07:46→20:36)
[2017-12-06] MEDS: loratadine 10mg tablet PO SCH (07:49)
[2017-12-06] MEDS: docusate sod 100mg capsule PO SCH ×2 (07:49→20:35)
[2017-12-06] MEDS: montelukast 10mg tablet PO SCH (07:49)
[2017-12-06] MEDS: lurasidone 20mg tablet PO SCH (07:49)
[2017-12-06] MEDS: gabapentin 300mg capsule PO SCH ×2 (07:49→20:34)
[2017-12-06] MEDS: spironolactone 25 MG tablet PO SCH ×2 (07:50→20:36)
[2017-12-06] MEDS: pravastatin 40mg tablet PO SCH (07:50)
[2017-12-06] MEDS: lactobacillus rhamnosus 10,000 MMU CELLS/CAPSULE PO SCH ×2 (07:50→20:35)
[2017-12-06] MEDS: K, MAG and/or Phos replacement - Verify level? MC SCH (07:50)
[2017-12-06] MEDS: venlafaxine 25mg tablet PO SCH ×2 (08:51→20:36)
[2017-12-06] MEDS: NORepinephrine 8mg/ 250ml NS 250 ML IV SCH (15:34)
[2017-12-06] MEDS: midazolam 100mg in NS 100ml 100 ML IV SCH (15:34)
[2017-12-06] MEDS ORDERED: VANCOMYCIN LEVEL IV ONE (19:30)
[2017-12-06] MEDS: HYDROcodone/acetaminophen 5mg/325mg tablet PO PRN (19:36)
[2017-12-06] MEDS: traZODone 50mg tablet PO SCH (20:35)
[2017-12-06] MEDS: latanoprost 0.005% 2.5ml ophthalmic drops EACHEYE SCH (20:37)
[2017-12-07] VITALS (24 sets, daily range): BP systolic 83–131; BP diastolic 55–93
[2017-12-07 02:40] LABS: BASOPHILS % (AUTO) 0.2 % (0-1); EOSINOPHILS # (AUTO) 0.3 X10'3 (0-0.9); EOSINOPHILS % (AUTO) 2.2 % (0-6); HEMATOCRIT 29.6 % (35.0-45.0); HEMOGLOBIN 9.8 g/dl (12.0-16.0); LYMPHOCYTES # (AUTO) 2.4 X10'3 (1.1-4.8); LYMPHOCYTES % (AUTO) 18.1 % (21-51); MEAN CORPUSCULAR HEMOGLOBIN 29.2 PG (27.0-31.0); MEAN CORPUSCULAR VOLUME 88.3 FL (78-98); MONOCYTES # (AUTO) 0.7 X10'3 (0-0.9); MONOCYTES % (AUTO) 5.3 % (2-12); NEUTROPHILS % (AUTO) 74.2 % (42-75); PLATELET COUNT 250 X10'3 (140-440); RED BLOOD COUNT 3.35 X10'6 (4.20-5.60); RED CELL DISTRIBUTION WIDTH 14.8 % (11.5-14.5)
[2017-12-07 02:55] LABS: ALANINE AMINOTRANSFERASE 19 U/L (12-78); ALBUMIN 2.5 G/DL (3.4-5.0); ALBUMIN/GLOBULIN RATIO 0.6 (1.1-1.5); ALKALINE PHOSPHATASE 50 IU/L (46-116); ANION GAP 5 (8-16); ASPARTATE AMINO TRANSFERASE 16 U/L (10-37); BILIRUBIN,TOTAL 0.3 MG/DL (0.1-1.0); BLOOD UREA NITROGEN 29 MG/DL (7-18); BUN/CREATININE RATIO 24.8 (6.6-38.0); CALCIUM 9.2 MG/DL (8.5-10.1); CHLORIDE 99 MMOL/L (99-107); CREATININE 1.17 MG/DL (0.40-0.90); GLUCOSE 91 MG/DL (70-104); MAGNESIUM 1.4 MG/DL (1.5-2.4); PHOSPHORUS 6.2 MG/DL (2.3-4.5); POTASSIUM 4.1 MMOL/L (3.5-5.1); SODIUM 141 MMOL/L (135-145); TOTAL CARBON DIOXIDE 36.8 MMOL/L (24-32); TOTAL PROTEIN 6.8 G/DL (6.4-8.2); eGFR 47 ML/MIN
[2017-12-07 03:01] LABS: WHITE BLOOD COUNT 13.5 X10'3 (4.5-11.0)
[2017-12-07 03:21] LABS: TOTAL CELLS COUNTED 100
[2017-12-07 03:22] LABS: PLATELET ESTIMATE NORMAL; TOXIC GRANULATION 1+
[2017-12-07] MEDS: ipratropium/albuterol 3ml nebule NEB SCH ×6 (03:43→23:46)
[2017-12-07] MEDS: K, MAG and/or Phos replacement - Verify level? MC SCH (06:45)
[2017-12-07] MEDS: BUDESONIDE 0.25 MG/2 ML AMPUL.NEB IH SCH ×2 (06:50→18:54)
[2017-12-07] MEDS: lurasidone 20mg tablet PO SCH (08:00)
[2017-12-07] MEDS: levoFLOXACIN-Levaquin 500mg/D5 100 ML IV SCH (08:15)
[2017-12-07] MEDS: pantoprazole 40 MG vial IV SCH (08:15)
[2017-12-07] MEDS: aspirin 81mg tablet.DR PO SCH (08:50)
[2017-12-07] MEDS: gabapentin 300mg capsule PO SCH ×2 (08:50→20:39)
[2017-12-07] MEDS: pravastatin 40mg tablet PO SCH (08:50)
[2017-12-07] MEDS: furosemide 20MG tablet PO SCH (08:50)
[2017-12-07] MEDS: docusate sod 100mg capsule PO SCH ×2 (08:50→20:38)
[2017-12-07] MEDS: lactobacillus rhamnosus 10,000 MMU CELLS/CAPSULE PO SCH ×2 (08:50→20:38)
[2017-12-07] MEDS: loratadine 10mg tablet PO SCH (08:50)
[2017-12-07] MEDS: busPIRone 15mg tablet PO SCH ×3 (08:50→20:38)
[2017-12-07] MEDS: levoTHYROXINE 100mcg tablet PO SCH (08:50)
[2017-12-07] MEDS: spironolactone 25 MG tablet PO SCH ×2 (08:51→20:00)
[2017-12-07] MEDS: heparin, porcine 5000 units/ml vial SQ SCH ×2 (08:51→20:40)
[2017-12-07] MEDS: montelukast 10mg tablet PO SCH (08:51)
[2017-12-07] MEDS: buPROPion 100mg tablet PO SCH ×2 (08:51→09:10)
[2017-12-07] MEDS: HYDROcodone/acetaminophen 5mg/325mg tablet PO PRN ×2 (08:52→13:24)
[2017-12-07] MEDS ORDERED: magnesium 4gm in 100ml NS 100 ML IV PRN (10:35)
[2017-12-07] MEDS ORDERED: magnesium 2GM in 50ml NS 50 ML IV PRN (10:35)
[2017-12-07] MEDS: venlafaxine 25mg tablet PO SCH (10:43)
[2017-12-07] MEDS: traZODone 50mg tablet PO SCH ×2 (20:39→21:45)
[2017-12-07] MEDS: latanoprost 0.005% 2.5ml ophthalmic drops EACHEYE SCH (20:40)
[2017-12-08] VITALS (15 sets, daily range): BP systolic 86–131; BP diastolic 60–83
[2017-12-08] MEDS: ipratropium/albuterol 3ml nebule NEB SCH ×6 (03:22→23:20)
[2017-12-08 05:26] LABS: BASOPHILS % (AUTO) 0.1 % (0-1); EOSINOPHILS # (AUTO) 0.2 X10'3 (0-0.9); EOSINOPHILS % (AUTO) 1.2 % (0-6); HEMATOCRIT 29.4 % (35.0-45.0); HEMOGLOBIN 9.8 g/dl (12.0-16.0); LYMPHOCYTES # (AUTO) 2.3 X10'3 (1.1-4.8); LYMPHOCYTES % (AUTO) 17.1 % (21-51); MEAN CORPUSCULAR HEMOGLOBIN 29.3 PG (27.0-31.0); MEAN CORPUSCULAR HGB CONC 33.4 % (33.0-36.5); MEAN CORPUSCULAR VOLUME 87.5 FL (78-98); MONOCYTES # (AUTO) 0.7 X10'3 (0-0.9); MONOCYTES % (AUTO) 5.6 % (2-12); NEUTROPHILS # (AUTO) 10.1 X10'3 (1.8-7.7); PLATELET COUNT 276 X10'3 (140-440); RED BLOOD COUNT 3.36 X10'6 (4.20-5.60); RED CELL DISTRIBUTION WIDTH 15.1 % (11.5-14.5); WHITE BLOOD COUNT 13.3 X10'3 (4.5-11.0)
[2017-12-08 05:51] LABS: ALANINE AMINOTRANSFERASE 17 U/L (12-78); ALBUMIN 2.5 G/DL (3.4-5.0); ALBUMIN/GLOBULIN RATIO 0.6 (1.1-1.5); ALKALINE PHOSPHATASE 62 IU/L (46-116); ANION GAP 3 (8-16); ASPARTATE AMINO TRANSFERASE 18 U/L (10-37); BILIRUBIN,TOTAL 0.3 MG/DL (0.1-1.0); BLOOD UREA NITROGEN 29 MG/DL (7-18); BUN/CREATININE RATIO 21.8 (6.6-38.0); CHLORIDE 98 MMOL/L (99-107); CREATININE 1.33 MG/DL (0.40-0.90); GLUCOSE 112 MG/DL (70-104); MAGNESIUM 2.4 MG/DL (1.5-2.4); PHOSPHORUS 4.8 MG/DL (2.3-4.5); POTASSIUM 4.4 MMOL/L (3.5-5.1); SODIUM 140 MMOL/L (135-145); TOTAL CARBON DIOXIDE 39.1 MMOL/L (24-32); TOTAL PROTEIN 6.7 G/DL (6.4-8.2); eGFR 40 ML/MIN
[2017-12-08] MEDS: BUDESONIDE 0.25 MG/2 ML AMPUL.NEB IH SCH ×2 (06:44→19:04)
[2017-12-08 06:45] LABS: LARGE PLATELETS FEW; PLATELET ESTIMATE NORMAL; TOTAL CELLS COUNTED 100
[2017-12-08 06:46] LABS: ANISOCYTOSIS 1+
[2017-12-08] MEDS: pantoprazole 40 MG vial IV SCH (07:37)
[2017-12-08] MEDS: heparin, porcine 5000 units/ml vial SQ SCH ×2 (07:39→20:46)
[2017-12-08] MEDS: levoTHYROXINE 100mcg tablet PO SCH (07:39)
[2017-12-08] MEDS: gabapentin 300mg capsule PO SCH ×2 (07:40→20:41)
[2017-12-08] MEDS: busPIRone 15mg tablet PO SCH ×3 (07:41→20:44)
[2017-12-08] MEDS: aspirin 81mg tablet.DR PO SCH (07:41)
[2017-12-08] MEDS: pravastatin 40mg tablet PO SCH (07:41)
[2017-12-08] MEDS: furosemide 20MG tablet PO SCH (07:41)
[2017-12-08] MEDS: docusate sod 100mg capsule PO SCH ×2 (07:41→20:40)
[2017-12-08] MEDS: lactobacillus rhamnosus 10,000 MMU CELLS/CAPSULE PO SCH ×2 (07:42→20:44)
[2017-12-08] MEDS: loratadine 10mg tablet PO SCH (07:43)
[2017-12-08] MEDS: montelukast 10mg tablet PO SCH (07:44)
[2017-12-08] MEDS: venlafaxine 37.5mg tablet PO SCH ×2 (07:44→20:40)
[2017-12-08] MEDS: HYDROcodone/acetaminophen 5mg/325mg tablet PO PRN ×3 (07:45→18:31)
[2017-12-08] MEDS: spironolactone 25 MG tablet PO SCH ×2 (07:47→20:41)
[2017-12-08] MEDS: K, MAG and/or Phos replacement - Verify level? MC SCH (08:00)
[2017-12-08] MEDS: levoFLOXACIN 500mg tablet PO SCH (12:26)
[2017-12-08] MEDS: NORepinephrine 8mg/ 250ml NS 250 ML IV SCH (15:50)
[2017-12-08 17:31] LABS: ABG BASE EXCESS 11.9 mmol/L (-2.0-3.0); ABG HCO3 38.5 mmol/L (22.0-26.0); ABG OXYGEN SATURATION 94.4 % (95-98); ABG PCO2 (T) 61.2 mmHg (32.0-45.0); ABG PH (T) 7.417 (7.350-7.450); ABG PO2 (T) 72.6 mmHg (83-108); ALLEN'S TEST Positive; FCOHb 0.3 % (0.5-1.5); FMetHb 0.2 % (0.3-1.12); FO2Hb 93.9 % (94-100); TOTAL HEMOGLOBIN 11.1 G/dl (12.0-16.0)
[2017-12-08] MEDS: polyethylene glycol 3350 17gm powd pack PO PRN (20:40)
[2017-12-08] MEDS: LORazepam 1 MG tablet PO PRN (20:41)
[2017-12-08] MEDS: traZODone 50mg tablet PO SCH (20:43)
[2017-12-08] MEDS: latanoprost 0.005% 2.5ml ophthalmic drops EACHEYE SCH (20:44)
[2017-12-09 03:00] VITALS: BP_SYST 101; BP_SYST 112; BP_DIAS 50; BP_DIAS 61
[2017-12-09] MEDS: ipratropium/albuterol 3ml nebule NEB SCH ×6 (03:12→22:41)
[2017-12-09 05:24] LABS: BASOPHILS % (AUTO) 0.2 % (0-1); EOSINOPHILS # (AUTO) 0.2 X10'3 (0-0.9); EOSINOPHILS % (AUTO) 1.3 % (0-6); HEMATOCRIT 30.6 % (35.0-45.0); HEMOGLOBIN 10.3 g/dl (12.0-16.0); LYMPHOCYTES # (AUTO) 2.7 X10'3 (1.1-4.8); LYMPHOCYTES % (AUTO) 19.4 % (21-51); MEAN CORPUSCULAR HEMOGLOBIN 29.4 PG (27.0-31.0); MEAN CORPUSCULAR HGB CONC 33.5 % (33.0-36.5); MEAN CORPUSCULAR VOLUME 87.7 FL (78-98); MONOCYTES # (AUTO) 0.3 X10'3 (0-0.9); NEUTROPHILS # (AUTO) 10.7 X10'3 (1.8-7.7); NEUTROPHILS % (AUTO) 77.1 % (42-75); PLATELET COUNT 315 X10'3 (140-440); RED BLOOD COUNT 3.49 X10'6 (4.20-5.60); RED CELL DISTRIBUTION WIDTH 14.9 % (11.5-14.5); WHITE BLOOD COUNT 13.9 X10'3 (4.5-11.0)
[2017-12-09 05:36] LABS: ALANINE AMINOTRANSFERASE 18 U/L (12-78); ALBUMIN 2.6 G/DL (3.4-5.0); ALBUMIN/GLOBULIN RATIO 0.6 (1.1-1.5); ALKALINE PHOSPHATASE 56 IU/L (46-116); ANION GAP 4 (8-16); ASPARTATE AMINO TRANSFERASE 17 U/L (10-37); BILIRUBIN,TOTAL 0.2 MG/DL (0.1-1.0); BLOOD UREA NITROGEN 30 MG/DL (7-18); BUN/CREATININE RATIO 21.7 (6.6-38.0); CALCIUM 9.6 MG/DL (8.5-10.1); CHLORIDE 101 MMOL/L (99-107); CREATININE 1.38 MG/DL (0.40-0.90); GLUCOSE 107 MG/DL (70-104); MAGNESIUM 1.8 MG/DL (1.5-2.4); PHOSPHORUS 4.8 MG/DL (2.3-4.5); POTASSIUM 4.4 MMOL/L (3.5-5.1); PREALBUMIN 26.2 MG/DL (19-36); SODIUM 144 MMOL/L (135-145); TOTAL CARBON DIOXIDE 38.6 MMOL/L (24-32); eGFR 39 ML/MIN
[2017-12-09 07:00] LABS: BANDS% (MANUAL) 5 % (0-10); LYMPHOCYTES % (MANUAL) 22 % (21-51); MONOCYTES % (MANUAL) 7 % (2-12); NEUTROPHILS % (MANUAL) 56 % (42-75); TOTAL CELLS COUNTED 100
[2017-12-09 07:01] LABS: EOSINOPHILS % (MANUAL) 3 % (0-6); METAMYLEOCYTES% (MANUAL) 6 % (0-0); PLATELET ESTIMATE NORMAL
[2017-12-09 07:08] VITALS: BP 105/48
[2017-12-09] MEDS: BUDESONIDE 0.25 MG/2 ML AMPUL.NEB IH SCH ×2 (07:15→19:10)
[2017-12-09] MEDS ORDERED: VANCOMYCIN LEVEL IV NR (07:30)
[2017-12-09] MEDS: loratadine 10mg tablet PO SCH (07:58)
[2017-12-09] MEDS: venlafaxine 37.5mg tablet PO SCH ×2 (07:58→20:08)
[2017-12-09] MEDS: gabapentin 300mg capsule PO SCH ×2 (07:59→20:08)
[2017-12-09] MEDS: levoTHYROXINE 100mcg tablet PO SCH (07:59)
[2017-12-09] MEDS: furosemide 20MG tablet PO SCH (07:59)
[2017-12-09] MEDS: busPIRone 15mg tablet PO SCH ×2 (08:00→20:06)
[2017-12-09] MEDS: montelukast 10mg tablet PO SCH (08:00)
[2017-12-09] MEDS: K, MAG and/or Phos replacement - Verify level? MC SCH (08:00)
[2017-12-09] MEDS: pantoprazole 40 MG vial IV SCH (08:01)
[2017-12-09] MEDS: spironolactone 25 MG tablet PO SCH (08:01)
[2017-12-09] MEDS: docusate sod 100mg capsule PO SCH ×2 (08:01→20:07)
[2017-12-09] MEDS: pravastatin 40mg tablet PO SCH (08:03)
[2017-12-09] MEDS: heparin, porcine 5000 units/ml vial SQ SCH ×2 (08:03→20:13)
[2017-12-09] MEDS: aspirin 81mg tablet.DR PO SCH (08:03)
[2017-12-09] MEDS: lactobacillus rhamnosus 10,000 MMU CELLS/CAPSULE PO SCH ×2 (08:03→20:09)
[2017-12-09] MEDS: HYDROcodone/acetaminophen 5mg/325mg tablet PO PRN ×2 (08:38→20:10)
[2017-12-09] MEDS: LORazepam 1 MG tablet PO PRN ×2 (08:38→20:05)
[2017-12-09 11:00] VITALS: BP 107/68
[2017-12-09] MEDS: levoFLOXACIN 500mg tablet PO SCH (11:53)
[2017-12-09 15:00] VITALS: BP 109/67
[2017-12-09 19:00] VITALS: BP 131/83
[2017-12-09] MEDS: latanoprost 0.005% 2.5ml ophthalmic drops EACHEYE SCH (20:13)
[2017-12-09] MEDS: traZODone 50mg tablet PO SCH (20:23)
[2017-12-09 23:00] VITALS: BP 116/69
[2017-12-10] MEDS ORDERED: lactulose 20gm/30ml cup PO ONE (02:05)
[2017-12-10] MEDS ORDERED: bisacodyl 10mg suppository rectal RC PRN (02:05)
[2017-12-10 03:00] VITALS: BP 129/68
[2017-12-10] MEDS: ipratropium/albuterol 3ml nebule NEB SCH ×5 (04:01→19:18)
[2017-12-10 05:32] LABS: BASOPHILS % (AUTO) 0.2 % (0-1); EOSINOPHILS # (AUTO) 0.2 X10'3 (0-0.9); EOSINOPHILS % (AUTO) 1.4 % (0-6); HEMATOCRIT 31.5 % (35.0-45.0); HEMOGLOBIN 10.4 g/dl (12.0-16.0); LYMPHOCYTES # (AUTO) 3.3 X10'3 (1.1-4.8); LYMPHOCYTES % (AUTO) 20.8 % (21-51); MEAN CORPUSCULAR HEMOGLOBIN 29.2 PG (27.0-31.0); MEAN CORPUSCULAR HGB CONC 33.1 % (33.0-36.5); MEAN CORPUSCULAR VOLUME 88.3 FL (78-98); MEAN PLATELET VOLUME 7.8 FL (7.4-10.4); MONOCYTES # (AUTO) 0.6 X10'3 (0-0.9); NEUTROPHILS # (AUTO) 11.7 X10'3 (1.8-7.7); NEUTROPHILS % (AUTO) 73.6 % (42-75); PLATELET COUNT 353 X10'3 (140-440); RED BLOOD COUNT 3.57 X10'6 (4.20-5.60); RED CELL DISTRIBUTION WIDTH 15.3 % (11.5-14.5); WHITE BLOOD COUNT 15.9 X10'3 (4.5-11.0)
[2017-12-10 05:52] LABS: ALANINE AMINOTRANSFERASE 15 U/L (12-78); ALBUMIN 2.7 G/DL (3.4-5.0); ALBUMIN/GLOBULIN RATIO 0.6 (1.1-1.5); ALKALINE PHOSPHATASE 64 IU/L (46-116); ANION GAP 3 (8-16); ASPARTATE AMINO TRANSFERASE 19 U/L (10-37); BILIRUBIN,TOTAL 0.2 MG/DL (0.1-1.0); BLOOD UREA NITROGEN 27 MG/DL (7-18); BUN/CREATININE RATIO 17.3 (6.6-38.0); CALCIUM 9.9 MG/DL (8.5-10.1); CHLORIDE 100 MMOL/L (99-107); CREATININE 1.56 MG/DL (0.40-0.90); GLUCOSE 110 MG/DL (70-104); MAGNESIUM 1.6 MG/DL (1.5-2.4); PHOSPHORUS 4.6 MG/DL (2.3-4.5); POTASSIUM 4.6 MMOL/L (3.5-5.1); SODIUM 143 MMOL/L (135-145); TOTAL CARBON DIOXIDE 39.8 MMOL/L (24-32); TOTAL PROTEIN 7.2 G/DL (6.4-8.2); eGFR 34 ML/MIN
[2017-12-10 06:00] VITALS: BP 138/89
[2017-12-10 07:04] LABS: ANISOCYTOSIS 1+; PLATELET ESTIMATE NORMAL; POLYCHROMASIA 1+; TARGET CELLS FEW; TOTAL CELLS COUNTED 100
[2017-12-10] MEDS: BUDESONIDE 0.25 MG/2 ML AMPUL.NEB IH SCH ×2 (07:21→19:18)
[2017-12-10] MEDS: levoTHYROXINE 100mcg tablet PO SCH (07:49)
[2017-12-10] MEDS: LORazepam 1 MG tablet PO PRN ×2 (07:49→21:52)
[2017-12-10] MEDS: aspirin 81mg tablet.DR PO SCH (07:50)
[2017-12-10] MEDS: gabapentin 300mg capsule PO SCH ×2 (07:50→20:12)
[2017-12-10] MEDS: pravastatin 40mg tablet PO SCH (07:50)
[2017-12-10] MEDS: venlafaxine 37.5mg tablet PO SCH ×2 (07:50→20:12)
[2017-12-10] MEDS: lactobacillus rhamnosus 10,000 MMU CELLS/CAPSULE PO SCH ×2 (07:50→20:12)
[2017-12-10] MEDS: loratadine 10mg tablet PO SCH (07:50)
[2017-12-10] MEDS: docusate sod 100mg capsule PO SCH ×2 (07:51→20:12)
[2017-12-10] MEDS: furosemide 20MG tablet PO SCH (07:51)
[2017-12-10] MEDS: spironolactone 25 MG tablet PO SCH (07:51)
[2017-12-10] MEDS: busPIRone 15mg tablet PO SCH ×2 (07:51→20:12)
[2017-12-10] MEDS: heparin, porcine 5000 units/ml vial SQ SCH ×2 (07:52→20:14)
[2017-12-10] MEDS: pantoprazole 40 MG vial IV SCH (07:52)
[2017-12-10] MEDS: montelukast 10mg tablet PO SCH (07:53)
[2017-12-10] MEDS: K, MAG and/or Phos replacement - Verify level? MC SCH (08:00)
[2017-12-10 11:00] VITALS: BP 100/42
[2017-12-10] MEDS: levoFLOXACIN 500mg tablet PO SCH (11:40)
[2017-12-10] MEDS: HYDROcodone/acetaminophen 5mg/325mg tablet PO PRN ×2 (11:45→20:13)
[2017-12-10 15:00] VITALS: BP 116/46
[2017-12-10 18:30] VITALS: BP 108/62
[2017-12-10] MEDS: traZODone 50mg tablet PO SCH (20:12)
[2017-12-10] MEDS: latanoprost 0.005% 2.5ml ophthalmic drops EACHEYE SCH (20:13)
[2017-12-10] MEDS: polyethylene glycol 3350 17gm powd pack PO PRN (20:22)
[2017-12-10 22:00] VITALS: BP 113/54
[2017-12-10] MEDS ORDERED: ipratropium/albuterol 3ml nebule NEB SCH (23:00)
[2017-12-11 02:30] VITALS: BP 117/76
[2017-12-11 05:26] LABS: BASOPHILS % (AUTO) 0.2 % (0-1); EOSINOPHILS # (AUTO) 0.3 X10'3 (0-0.9); EOSINOPHILS % (AUTO) 1.9 % (0-6); HEMATOCRIT 32.3 % (35.0-45.0); HEMOGLOBIN 10.8 g/dl (12.0-16.0); LYMPHOCYTES # (AUTO) 2.7 X10'3 (1.1-4.8); LYMPHOCYTES % (AUTO) 17.9 % (21-51); MEAN CORPUSCULAR HEMOGLOBIN 29.4 PG (27.0-31.0); MEAN CORPUSCULAR HGB CONC 33.4 % (33.0-36.5); MEAN CORPUSCULAR VOLUME 87.9 FL (78-98); MEAN PLATELET VOLUME 7.6 FL (7.4-10.4); MONOCYTES % (AUTO) 6.6 % (2-12); NEUTROPHILS % (AUTO) 73.4 % (42-75); PLATELET COUNT 392 X10'3 (140-440); RED BLOOD COUNT 3.67 X10'6 (4.20-5.60); RED CELL DISTRIBUTION WIDTH 15.3 % (11.5-14.5); WHITE BLOOD COUNT 14.9 X10'3 (4.5-11.0)
[2017-12-11 06:00] VITALS: BP 119/74
[2017-12-11 06:10] LABS: ALANINE AMINOTRANSFERASE 19 U/L (12-78); ALBUMIN 2.8 G/DL (3.4-5.0); ALBUMIN/GLOBULIN RATIO 0.6 (1.1-1.5); ALKALINE PHOSPHATASE 61 IU/L (46-116); ANION GAP 4 (8-16); ASPARTATE AMINO TRANSFERASE 17 U/L (10-37); BILIRUBIN,TOTAL 0.3 MG/DL (0.1-1.0); BLOOD UREA NITROGEN 28 MG/DL (7-18); BUN/CREATININE RATIO 17.3 (6.6-38.0); CALCIUM 9.4 MG/DL (8.5-10.1); CHLORIDE 97 MMOL/L (99-107); CREATININE 1.62 MG/DL (0.40-0.90); GLUCOSE 101 MG/DL (70-104); MAGNESIUM 1.7 MG/DL (1.5-2.4); PHOSPHORUS 5.2 MG/DL (2.3-4.5); POTASSIUM 4.3 MMOL/L (3.5-5.1); SODIUM 140 MMOL/L (135-145); TOTAL CARBON DIOXIDE 38.9 MMOL/L (24-32); TOTAL PROTEIN 7.4 G/DL (6.4-8.2); eGFR 32 ML/MIN
[2017-12-11 06:24] LABS: PLATELET ESTIMATE NORMAL; TOTAL CELLS COUNTED 100
[2017-12-11] MEDS: spironolactone 25 MG tablet PO SCH (07:32)
[2017-12-11] MEDS: montelukast 10mg tablet PO SCH (07:32)
[2017-12-11] MEDS: loratadine 10mg tablet PO SCH (07:32)
[2017-12-11] MEDS: busPIRone 15mg tablet PO SCH ×2 (07:32→20:03)
[2017-12-11] MEDS: aspirin 81mg tablet.DR PO SCH (07:32)
[2017-12-11] MEDS: venlafaxine 37.5mg tablet PO SCH ×2 (07:32→20:04)
[2017-12-11] MEDS: lactobacillus rhamnosus 10,000 MMU CELLS/CAPSULE PO SCH ×2 (07:32→20:03)
[2017-12-11] MEDS: furosemide 20MG tablet PO SCH (07:32)
[2017-12-11] MEDS: docusate sod 100mg capsule PO SCH ×2 (07:32→20:03)
[2017-12-11] MEDS: pravastatin 40mg tablet PO SCH (07:33)
[2017-12-11] MEDS: levoTHYROXINE 100mcg tablet PO SCH (07:33)
[2017-12-11] MEDS: gabapentin 300mg capsule PO SCH ×2 (07:33→20:04)
[2017-12-11] MEDS: HYDROcodone/acetaminophen 5mg/325mg tablet PO PRN ×3 (07:33→20:06)
[2017-12-11] MEDS: heparin, porcine 5000 units/ml vial SQ SCH ×2 (07:34→20:05)
[2017-12-11] MEDS: pantoprazole 40 MG vial IV SCH (07:37)
[2017-12-11] MEDS: K, MAG and/or Phos replacement - Verify level? MC SCH (08:00)
[2017-12-11] MEDS: ipratropium/albuterol 3ml nebule NEB SCH ×4 (08:01→19:56)
[2017-12-11] MEDS: BUDESONIDE 0.25 MG/2 ML AMPUL.NEB IH SCH ×2 (08:02→19:56)
[2017-12-11 11:00] VITALS: BP 126/58
[2017-12-11 11:16] LABS: ABG BASE EXCESS 13.1 mmol/L (-2.0-3.0); ABG HCO3 40.1 mmol/L (22.0-26.0); ABG OXYGEN SATURATION 95.5 % (95-98); ABG PCO2 (T) 64.3 mmHg (32.0-45.0); ABG PH (T) 7.413 (7.350-7.450); ABG PO2 (T) 79.9 mmHg (83-108); ALLEN'S TEST Positive; FLOW 2 L/min; FMetHb 0.1 % (0.3-1.12); FO2Hb 95.4 % (94-100); TOTAL HEMOGLOBIN 11.5 G/dl (12.0-16.0)
[2017-12-11] MEDS: levoFLOXACIN 500mg tablet PO SCH (11:37)
[2017-12-11 18:00] VITALS: BP 112/76
[2017-12-11] MEDS: LORazepam 1 MG tablet PO PRN (20:02)
[2017-12-11] MEDS: traZODone 50mg tablet PO SCH (20:03)
[2017-12-11] MEDS: latanoprost 0.005% 2.5ml ophthalmic drops EACHEYE SCH (20:05)
[2017-12-11 22:00] VITALS: BP 107/51
[2017-12-11] MEDS: ipratropium/albuterol 3ml nebule NEB PRN (23:30)
[2017-12-12 02:00] VITALS: BP 122/55
[2017-12-12 06:24] LABS: BASOPHILS % (AUTO) 0.3 % (0-1); EOSINOPHILS # (AUTO) 0.2 X10'3 (0-0.9); EOSINOPHILS % (AUTO) 1.6 % (0-6); HEMOGLOBIN 10.7 g/dl (12.0-16.0); LYMPHOCYTES # (AUTO) 2.5 X10'3 (1.1-4.8); LYMPHOCYTES % (AUTO) 18.5 % (21-51); MEAN CORPUSCULAR HEMOGLOBIN 29.3 PG (27.0-31.0); MEAN CORPUSCULAR HGB CONC 33.4 % (33.0-36.5); MEAN CORPUSCULAR VOLUME 87.8 FL (78-98); MEAN PLATELET VOLUME 7.7 FL (7.4-10.4); MONOCYTES % (AUTO) 7.3 % (2-12); NEUTROPHILS # (AUTO) 9.9 X10'3 (1.8-7.7); NEUTROPHILS % (AUTO) 72.3 % (42-75); PLATELET COUNT 406 X10'3 (140-440); RED BLOOD COUNT 3.65 X10'6 (4.20-5.60); RED CELL DISTRIBUTION WIDTH 15.1 % (11.5-14.5); WHITE BLOOD COUNT 13.7 X10'3 (4.5-11.0)
[2017-12-12 06:30] VITALS: BP 126/70
[2017-12-12 06:40] LABS: ANION GAP 0 (8-16); CHLORIDE 100 MMOL/L (99-107); GLUCOSE 103 MG/DL (70-104); POTASSIUM 3.8 MMOL/L (3.5-5.1); SODIUM 138 MMOL/L (135-145); TOTAL CARBON DIOXIDE 38.4 MMOL/L (24-32)
[2017-12-12 06:41] LABS: ALANINE AMINOTRANSFERASE 17 U/L (12-78); ALBUMIN 2.9 G/DL (3.4-5.0); ALBUMIN/GLOBULIN RATIO 0.7 (1.1-1.5); ALKALINE PHOSPHATASE 67 IU/L (46-116); ASPARTATE AMINO TRANSFERASE 14 U/L (10-37); BILIRUBIN,TOTAL 0.2 MG/DL (0.1-1.0); BLOOD UREA NITROGEN 26 MG/DL (7-18); BUN/CREATININE RATIO 17.8 (6.6-38.0); CALCIUM 9.5 MG/DL (8.5-10.1); CREATININE 1.46 MG/DL (0.40-0.90); MAGNESIUM 1.7 MG/DL (1.5-2.4); PHOSPHORUS 4.9 MG/DL (2.3-4.5); TOTAL PROTEIN 7.3 G/DL (6.4-8.2); eGFR 36 ML/MIN
[2017-12-12] MEDS: BUDESONIDE 0.25 MG/2 ML AMPUL.NEB IH SCH ×2 (07:30→20:26)
[2017-12-12] MEDS: busPIRone 15mg tablet PO SCH ×2 (07:41→20:08)
[2017-12-12] MEDS: loratadine 10mg tablet PO SCH (07:41)
[2017-12-12] MEDS: lactobacillus rhamnosus 10,000 MMU CELLS/CAPSULE PO SCH ×2 (07:41→20:07)
[2017-12-12] MEDS: montelukast 10mg tablet PO SCH (07:41)
[2017-12-12] MEDS: gabapentin 300mg capsule PO SCH ×2 (07:41→20:07)
[2017-12-12] MEDS: docusate sod 100mg capsule PO SCH ×2 (07:42→20:07)
[2017-12-12] MEDS: furosemide 20MG tablet PO SCH (07:42)
[2017-12-12] MEDS: levoTHYROXINE 100mcg tablet PO SCH (07:42)
[2017-12-12] MEDS: spironolactone 25 MG tablet PO SCH (07:42)
[2017-12-12] MEDS: aspirin 81mg tablet.DR PO SCH (07:42)
[2017-12-12] MEDS: LORazepam 1 MG tablet PO PRN ×3 (07:43→20:08)
[2017-12-12] MEDS: HYDROcodone/acetaminophen 5mg/325mg tablet PO PRN ×3 (07:43→20:09)
[2017-12-12] MEDS: ipratropium/albuterol 3ml nebule NEB SCH ×4 (07:43→20:26)
[2017-12-12] MEDS: venlafaxine 37.5mg tablet PO SCH ×2 (07:44→20:08)
[2017-12-12] MEDS: pantoprazole 40 MG vial IV SCH (07:46)
[2017-12-12] MEDS: heparin, porcine 5000 units/ml vial SQ SCH ×2 (07:46→20:08)
[2017-12-12] MEDS: K, MAG and/or Phos replacement - Verify level? MC SCH (08:00)
[2017-12-12] MEDS: pravastatin 40mg tablet PO SCH (09:00)
[2017-12-12 11:00] VITALS: BP 124/77
[2017-12-12 18:00] VITALS: BP 110/64
[2017-12-12] MEDS: traZODone 50mg tablet PO SCH (20:08)
[2017-12-12] MEDS: latanoprost 0.005% 2.5ml ophthalmic drops EACHEYE SCH (20:09)
[2017-12-12] MEDS: polyethylene glycol 3350 17gm powd pack PO PRN (20:14)
[2017-12-12 22:00] VITALS: BP 114/69
[2017-12-12] MEDS: ipratropium/albuterol 3ml nebule NEB PRN (23:40)
[2017-12-13 02:00] VITALS: BP 121/81
[2017-12-13 05:34] LABS: BASOPHILS % (AUTO) 0.2 % (0-1); EOSINOPHILS # (AUTO) 0.2 X10'3 (0-0.9); EOSINOPHILS % (AUTO) 1.8 % (0-6); HEMATOCRIT 30.6 % (35.0-45.0); HEMOGLOBIN 10.4 g/dl (12.0-16.0); LYMPHOCYTES # (AUTO) 2.6 X10'3 (1.1-4.8); MEAN CORPUSCULAR HEMOGLOBIN 29.9 PG (27.0-31.0); MEAN CORPUSCULAR HGB CONC 33.9 % (33.0-36.5); MEAN CORPUSCULAR VOLUME 88.1 FL (78-98); MEAN PLATELET VOLUME 7.5 FL (7.4-10.4); MONOCYTES # (AUTO) 0.9 X10'3 (0-0.9); MONOCYTES % (AUTO) 7.9 % (2-12); NEUTROPHILS % (AUTO) 68.1 % (42-75); PLATELET COUNT 397 X10'3 (140-440); RED BLOOD COUNT 3.47 X10'6 (4.20-5.60); RED CELL DISTRIBUTION WIDTH 15.3 % (11.5-14.5); WHITE BLOOD COUNT 11.7 X10'3 (4.5-11.0)
[2017-12-13 05:55] LABS: ALANINE AMINOTRANSFERASE 18 U/L (12-78); ALBUMIN 2.8 G/DL (3.4-5.0); ALBUMIN/GLOBULIN RATIO 0.7 (1.1-1.5); ALKALINE PHOSPHATASE 70 IU/L (46-116); ANION GAP 2 (8-16); ASPARTATE AMINO TRANSFERASE 17 U/L (10-37); BILIRUBIN,TOTAL 0.2 MG/DL (0.1-1.0); BLOOD UREA NITROGEN 25 MG/DL (7-18); CHLORIDE 99 MMOL/L (99-107); CREATININE 1.39 MG/DL (0.40-0.90); GLUCOSE 98 MG/DL (70-104); MAGNESIUM 1.9 MG/DL (1.5-2.4); PHOSPHORUS 4.4 MG/DL (2.3-4.5); POTASSIUM 4.2 MMOL/L (3.5-5.1); PREALBUMIN 33.9 MG/DL (19-36); SODIUM 141 MMOL/L (135-145); TOTAL CARBON DIOXIDE 39.7 MMOL/L (24-32); eGFR 38 ML/MIN
[2017-12-13 06:00] VITALS: BP 133/76
[2017-12-13] MEDS: ipratropium/albuterol 3ml nebule NEB SCH ×4 (07:02→20:27)
[2017-12-13] MEDS: BUDESONIDE 0.25 MG/2 ML AMPUL.NEB IH SCH ×2 (07:04→20:27)
[2017-12-13] MEDS: lactobacillus rhamnosus 10,000 MMU CELLS/CAPSULE PO SCH ×2 (07:36→20:06)
[2017-12-13] MEDS: gabapentin 300mg capsule PO SCH ×2 (07:36→20:07)
[2017-12-13] MEDS: aspirin 81mg tablet.DR PO SCH (07:36)
[2017-12-13] MEDS: LORazepam 1 MG tablet PO PRN ×2 (07:36→21:48)
[2017-12-13] MEDS: furosemide 20MG tablet PO SCH (07:36)
[2017-12-13] MEDS: montelukast 10mg tablet PO SCH (07:37)
[2017-12-13] MEDS: loratadine 10mg tablet PO SCH (07:37)
[2017-12-13] MEDS: busPIRone 15mg tablet PO SCH ×2 (07:37→20:07)
[2017-12-13] MEDS: pantoprazole 40 MG vial IV SCH (07:37)
[2017-12-13] MEDS: docusate sod 100mg capsule PO SCH ×2 (07:37→20:08)
[2017-12-13] MEDS: pravastatin 40mg tablet PO SCH (07:37)
[2017-12-13] MEDS: spironolactone 25 MG tablet PO SCH (07:37)
[2017-12-13] MEDS: venlafaxine 37.5mg tablet PO SCH ×2 (07:37→20:06)
[2017-12-13] MEDS: levoTHYROXINE 100mcg tablet PO SCH (07:37)
[2017-12-13] MEDS: heparin, porcine 5000 units/ml vial SQ SCH ×2 (07:38→20:12)
[2017-12-13] MEDS: HYDROcodone/acetaminophen 5mg/325mg tablet PO PRN ×3 (07:38→21:49)
[2017-12-13] MEDS: K, MAG and/or Phos replacement - Verify level? MC SCH (07:48)
[2017-12-13] MEDS: methylPREDNISolone sod succ 125mg/2ml vial IV SCH ×2 (10:55→20:12)
[2017-12-13 11:00] VITALS: BP 105/75
[2017-12-13 15:00] VITALS: BP 120/76
[2017-12-13 19:00] VITALS: BP 125/76
[2017-12-13] MEDS: guaiFENesin ER 600mg tablet PO SCH (20:05)
[2017-12-13] MEDS: polyethylene glycol 3350 17gm powd pack PO PRN (20:09)
[2017-12-13] MEDS: latanoprost 0.005% 2.5ml ophthalmic drops EACHEYE SCH (21:00)
[2017-12-13] MEDS: traZODone 50mg tablet PO SCH (21:50)
[2017-12-13 23:00] VITALS: BP 132/84
[2017-12-14] VITALS (10 sets, daily range): BP systolic 109–134; BP diastolic 60–94
[2017-12-14] MEDS: HYDROcodone/acetaminophen 5mg/325mg tablet PO PRN ×4 (03:55→20:36)
[2017-12-14 05:19] LABS: BASOPHILS % (AUTO) 0.1 % (0-1); EOSINOPHILS # (AUTO) 0.3 X10'3 (0-0.9); EOSINOPHILS % (AUTO) 1.7 % (0-6); HEMATOCRIT 33.2 % (35.0-45.0); LYMPHOCYTES # (AUTO) 1.4 X10'3 (1.1-4.8); LYMPHOCYTES % (AUTO) 8.5 % (21-51); MEAN CORPUSCULAR HEMOGLOBIN 29.3 PG (27.0-31.0); MEAN CORPUSCULAR HGB CONC 33.3 % (33.0-36.5); MEAN CORPUSCULAR VOLUME 88.2 FL (78-98); MEAN PLATELET VOLUME 7.6 FL (7.4-10.4); MONOCYTES # (AUTO) 0.2 X10'3 (0-0.9); MONOCYTES % (AUTO) 1.1 % (2-12); NEUTROPHILS # (AUTO) 14.2 X10'3 (1.8-7.7); NEUTROPHILS % (AUTO) 88.6 % (42-75); PLATELET COUNT 461 X10'3 (140-440); RED BLOOD COUNT 3.76 X10'6 (4.20-5.60)
[2017-12-14 05:40] LABS: ALANINE AMINOTRANSFERASE 18 U/L (12-78); ALBUMIN/GLOBULIN RATIO 0.7 (1.1-1.5); ALKALINE PHOSPHATASE 70 IU/L (46-116); ANION GAP 8 (8-16); ASPARTATE AMINO TRANSFERASE 13 U/L (10-37); BILIRUBIN,TOTAL 0.3 MG/DL (0.1-1.0); BLOOD UREA NITROGEN 26 MG/DL (7-18); BUN/CREATININE RATIO 20.2 (6.6-38.0); CALCIUM 9.4 MG/DL (8.5-10.1); CHLORIDE 97 MMOL/L (99-107); CREATININE 1.29 MG/DL (0.40-0.90); GLUCOSE 154 MG/DL (70-104); MAGNESIUM 1.8 MG/DL (1.5-2.4); PHOSPHORUS 4.2 MG/DL (2.3-4.5); POTASSIUM 4.7 MMOL/L (3.5-5.1); SODIUM 143 MMOL/L (135-145); TOTAL CARBON DIOXIDE 38.1 MMOL/L (24-32); TOTAL PROTEIN 7.6 G/DL (6.4-8.2); eGFR 42 ML/MIN
[2017-12-14] MEDS: lactobacillus rhamnosus 10,000 MMU CELLS/CAPSULE PO SCH ×2 (07:16→19:27)
[2017-12-14] MEDS: gabapentin 300mg capsule PO SCH ×2 (07:16→19:28)
[2017-12-14] MEDS: furosemide 20MG tablet PO SCH (07:16)
[2017-12-14] MEDS: loratadine 10mg tablet PO SCH (07:16)
[2017-12-14] MEDS: montelukast 10mg tablet PO SCH (07:16)
[2017-12-14] MEDS: docusate sod 100mg capsule PO SCH ×2 (07:16→19:27)
[2017-12-14] MEDS: aspirin 81mg tablet.DR PO SCH (07:16)
[2017-12-14] MEDS: levoTHYROXINE 100mcg tablet PO SCH (07:17)
[2017-12-14] MEDS: busPIRone 15mg tablet PO SCH ×2 (07:17→19:29)
[2017-12-14] MEDS: pravastatin 40mg tablet PO SCH (07:17)
[2017-12-14] MEDS: methylPREDNISolone sod succ 125mg/2ml vial IV SCH (07:17)
[2017-12-14] MEDS: spironolactone 25 MG tablet PO SCH (07:17)
[2017-12-14] MEDS: LORazepam 1 MG tablet PO PRN ×3 (07:17→22:44)
[2017-12-14] MEDS: pantoprazole 40 MG vial IV SCH (07:17)
[2017-12-14] MEDS: venlafaxine 37.5mg tablet PO SCH ×2 (07:18→19:29)
[2017-12-14] MEDS: guaiFENesin ER 600mg tablet PO SCH ×2 (07:18→19:28)
[2017-12-14] MEDS: heparin, porcine 5000 units/ml vial SQ SCH ×2 (07:30→19:28)
[2017-12-14] MEDS: K, MAG and/or Phos replacement - Verify level? MC SCH (07:33)
[2017-12-14] MEDS: BUDESONIDE 0.25 MG/2 ML AMPUL.NEB IH SCH ×2 (08:11→19:57)
[2017-12-14] MEDS: ipratropium/albuterol 3ml nebule NEB SCH ×4 (08:11→19:57)
[2017-12-14] MEDS ORDERED: normal saline 500ml IV soln 500 ML IV ONE (13:45)
[2017-12-14] MEDS ORDERED: normal saline 1000ml 1,000 ML IV ONE (13:50)
[2017-12-14] MEDS: traZODone 50mg tablet PO SCH (20:35)
[2017-12-14] MEDS: latanoprost 0.005% 2.5ml ophthalmic drops EACHEYE SCH (20:36)
[2017-12-15 03:00] VITALS: BP 121/91
[2017-12-15 05:49] LABS: BASOPHILS % (AUTO) 0.1 % (0-1); EOSINOPHILS # (AUTO) 0.3 X10'3 (0-0.9); EOSINOPHILS % (AUTO) 1.6 % (0-6); HEMATOCRIT 32.6 % (35.0-45.0); HEMOGLOBIN 10.8 g/dl (12.0-16.0); LYMPHOCYTES % (AUTO) 14.7 % (21-51); MEAN CORPUSCULAR HEMOGLOBIN 29.2 PG (27.0-31.0); MEAN CORPUSCULAR HGB CONC 33.1 % (33.0-36.5); MEAN CORPUSCULAR VOLUME 88.3 FL (78-98); MONOCYTES # (AUTO) 1.4 X10'3 (0-0.9); MONOCYTES % (AUTO) 6.7 % (2-12); NEUTROPHILS % (AUTO) 76.9 % (42-75); PLATELET COUNT 444 X10'3 (140-440); RED CELL DISTRIBUTION WIDTH 15.7 % (11.5-14.5); WHITE BLOOD COUNT 20.8 X10'3 (4.5-11.0)
[2017-12-15 06:00] VITALS: BP 142/92
[2017-12-15 06:01] LABS: ALANINE AMINOTRANSFERASE 17 U/L (12-78); ALBUMIN 3.1 G/DL (3.4-5.0); ALBUMIN/GLOBULIN RATIO 0.8 (1.1-1.5); ALKALINE PHOSPHATASE 76 IU/L (46-116); ANION GAP 5 (8-16); ASPARTATE AMINO TRANSFERASE 16 U/L (10-37); BILIRUBIN,TOTAL 0.2 MG/DL (0.1-1.0); BLOOD UREA NITROGEN 31 MG/DL (7-18); BUN/CREATININE RATIO 22.8 (6.6-38.0); CALCIUM 9.1 MG/DL (8.5-10.1); CHLORIDE 101 MMOL/L (99-107); CREATININE 1.36 MG/DL (0.40-0.90); GLUCOSE 92 MG/DL (70-104); MAGNESIUM 1.9 MG/DL (1.5-2.4); PHOSPHORUS 4.6 MG/DL (2.3-4.5); SODIUM 144 MMOL/L (135-145); TOTAL CARBON DIOXIDE 38.2 MMOL/L (24-32); TOTAL PROTEIN 7.2 G/DL (6.4-8.2); eGFR 39 ML/MIN
[2017-12-15] MEDS: ipratropium/albuterol 3ml nebule NEB SCH ×3 (07:42→14:13)
[2017-12-15] MEDS: BUDESONIDE 0.25 MG/2 ML AMPUL.NEB IH SCH (07:42)
[2017-12-15] MEDS: aspirin 81mg tablet.DR PO SCH (07:59)
[2017-12-15] MEDS: busPIRone 15mg tablet PO SCH (07:59)
[2017-12-15] MEDS: montelukast 10mg tablet PO SCH (07:59)
[2017-12-15] MEDS: docusate sod 100mg capsule PO SCH (07:59)
[2017-12-15] MEDS: lactobacillus rhamnosus 10,000 MMU CELLS/CAPSULE PO SCH (07:59)
[2017-12-15] MEDS: furosemide 20MG tablet PO SCH (07:59)
[2017-12-15] MEDS: loratadine 10mg tablet PO SCH (07:59)
[2017-12-15] MEDS: pravastatin 40mg tablet PO SCH (08:00)
[2017-12-15] MEDS: guaiFENesin ER 600mg tablet PO SCH (08:00)
[2017-12-15] MEDS: K, MAG and/or Phos replacement - Verify level? MC SCH (08:00)
[2017-12-15] MEDS ORDERED: predniSONE 20 mg tablet PO SCH (08:00)
[2017-12-15] MEDS: spironolactone 25 MG tablet PO SCH (08:00)
[2017-12-15] MEDS: levoTHYROXINE 100mcg tablet PO SCH (08:00)
[2017-12-15] MEDS: venlafaxine 37.5mg tablet PO SCH (08:00)
[2017-12-15] MEDS: pantoprazole 40 MG vial IV SCH (08:01)
[2017-12-15] MEDS: gabapentin 300mg capsule PO SCH (08:01)
[2017-12-15] MEDS: HYDROcodone/acetaminophen 5mg/325mg tablet PO PRN ×2 (08:02→14:48)
[2017-12-15] MEDS: heparin, porcine 5000 units/ml vial SQ SCH (08:02)
[2017-12-15] MEDS: LORazepam 1 MG tablet PO PRN ×2 (08:02→14:48)
[2017-12-15] MEDS: levoFLOXACIN 750MG TABLET PO SCH ×2 (10:00→11:00)
[2017-12-15 10:36] LABS: BASOPHILS % (AUTO) 0.3 % (0-1); EOSINOPHILS # (AUTO) 0.3 X10'3 (0-0.9); EOSINOPHILS % (AUTO) 1.6 % (0-6); HEMOGLOBIN 11.2 g/dl (12.0-16.0); LYMPHOCYTES # (AUTO) 1.7 X10'3 (1.1-4.8); LYMPHOCYTES % (AUTO) 10.4 % (21-51); MEAN CORPUSCULAR HEMOGLOBIN 29.4 PG (27.0-31.0); MEAN CORPUSCULAR HGB CONC 33.1 % (33.0-36.5); MEAN PLATELET VOLUME 7.8 FL (7.4-10.4); MONOCYTES % (AUTO) 5.9 % (2-12); NEUTROPHILS # (AUTO) 13.5 X10'3 (1.8-7.7); NEUTROPHILS % (AUTO) 81.8 % (42-75); PLATELET COUNT 417 X10'3 (140-440); RED BLOOD COUNT 3.82 X10'6 (4.20-5.60); RED CELL DISTRIBUTION WIDTH 16.2 % (11.5-14.5); WHITE BLOOD COUNT 16.5 X10'3 (4.5-11.0)
[2017-12-15 11:00] VITALS: BP 127/74
[2017-12-15] MEDS ORDERED: LEVO750T46 PO (12:56)
[2017-12-15] MEDS ORDERED: LEVO175T2 PO (12:56)
[2017-12-15] MEDS ORDERED: PRED10TA23 PO (12:56)
[2017-12-15 15:00] VITALS: BP 137/84
[2017-12-15 19:00] VITALS: BP 112/67
== END 2017-12-15 19:30 | disposition home health service (06) | DRG 133 ==
LOC: ER 14:38 → ED HOLD 16:19 → CICU 2S 17:45 → PCU 3S 12-08 11:00
PROVIDERS: ATTEND Internal Medicine
PROC: 5A1945Z Respiratory Ventilation, 24-96 Consecutive Hours (ICD-10-PCS; principal; 2017-12-02)
PROC: 0BH17EZ Insertion of Endotracheal Airway into Trachea, Via Natural or Artificial Opening (ICD-10-PCS; 2017-12-02)
PROC: 0D9670Z Drainage of Stomach with Drainage Device, Via Natural or Artificial Opening (ICD-10-PCS; 2017-12-02)
PROC: 02HV33Z Insertion of Infusion Device into Superior Vena Cava, Percutaneous Approach (ICD-10-PCS; 2017-12-02)
PROC: B548ZZA Ultrasonography of Superior Vena Cava, Guidance (ICD-10-PCS; 2017-12-02)
DX: J96.01 Acute respiratory failure with hypoxia (principal); J18.1 Lobar pneumonia, unspecified organism; I13.0 Hypertensive heart and chronic kidney disease with heart failure and stage 1 through stage 4 chronic kidney disease, or unspecified chronic kidney disease; N17.9 Acute kidney failure, unspecified; I95.9 Hypotension, unspecified; E11.22 Type 2 diabetes mellitus with diabetic chronic kidney disease; I50.9 Heart failure, unspecified; N18.3 Chronic kidney disease, stage 3 (moderate); E87.4 Mixed disorder of acid-base balance; E11.42 Type 2 diabetes mellitus with diabetic polyneuropathy; J44.0 Chronic obstructive pulmonary disease with (acute) lower respiratory infection; J44.1 Chronic obstructive pulmonary disease with (acute) exacerbation; E11.65 Type 2 diabetes mellitus with hyperglycemia; E66.01 Morbid (severe) obesity due to excess calories; G47.30 Sleep apnea, unspecified; E78.00 Pure hypercholesterolemia, unspecified; E78.5 Hyperlipidemia, unspecified; E03.9 Hypothyroidism, unspecified; F31.9 Bipolar disorder, unspecified; G89.4 Chronic pain syndrome; T38.0X5A Adverse effect of glucocorticoids and synthetic analogues, initial encounter; M19.90 Unspecified osteoarthritis, unspecified site; R00.0 Tachycardia, unspecified; Z87.891 Personal history of nicotine dependence; Z68.41 Body mass index [BMI] 40.0-44.9, adult; Z90.710 Acquired absence of both cervix and uterus; Z88.5 Allergy status to narcotic agent; Z88.0 Allergy status to penicillin; Z88.2 Allergy status to sulfonamides; Z88.7 Allergy status to serum and vaccine; Z88.8 Allergy status to other drugs, medicaments and biological substances; Z88.1 Allergy status to other antibiotic agents; Z91.041 Radiographic dye allergy status; Z91.040 Latex allergy status; Z79.899 Other long term (current) drug therapy
CPT/HCPCS: 36415; 36556; 36600; 70450; 71045; 80053; 80202; 81001; 82565; 82803; 82948; 83605; 83735; 83880; 84100; 84132; 84134; 84145; 84439; 84443; 84484; 85018; 85025; 85610; 85730; 87040; 87070; 87077; 87186; 87502; 87503; 93005; 94002; 94003; 94640; 94667; 94668; 94760; 96365; 96375; 97110; 97116; 97162; 97530; 99291; A6213; A6257; A6258; A6449; A7015; C1751; C1758; C9113; J1100; J1644; J1956; J2250; J2270; J2405; J2704; J2930; J3370; J3475; J3480; J3490; J7030; J7512

== ENCOUNTER 2018-03-16 13:37 | Inpatient (IN) | payer MEDICAID ==
[~2018-03-16] VITALS: Ht 160 cm; Wt 106.3 kg
[~2018-03-16 13:37] MED LIST changes: -DOCU-28 PO; -ERGO500041 PO; -FURO20TA4 PO; +LEVO175T2 PO; -LEVO300T2 PO; -NORepinephrine bitartrate 8 MG in NS 250 ML BAG (32 mcg/ml) IV ONE; -PANT-47 PO; -TRAV5DRO EACHEYE; -TRAZ-143 PO; +TRAZ-218 PO; -etomidate 2mg/ml inj. ONE; -rocuronium 10mg/ml inj IV ONE
[2018-03-16 14:30] LABS: BASOPHILS % (AUTO) 0.2 % (0-1); EOSINOPHILS # (AUTO) 0.1 X10'3 (0-0.9); EOSINOPHILS % (AUTO) 0.9 % (0-6); HEMATOCRIT 24.8 % (35.0-45.0); HEMOGLOBIN 8.1 g/dl (12.0-16.0); LYMPHOCYTES # (AUTO) 1.2 X10'3 (1.1-4.8); LYMPHOCYTES % (AUTO) 15.3 % (21-51); MEAN CORPUSCULAR HEMOGLOBIN 27.7 PG (27.0-31.0); MEAN CORPUSCULAR HGB CONC 32.5 % (33.0-36.5); MEAN CORPUSCULAR VOLUME 85.3 FL (78-98); MEAN PLATELET VOLUME 7.3 FL (7.4-10.4); MONOCYTES # (AUTO) 0.6 X10'3 (0-0.9); MONOCYTES % (AUTO) 8.5 % (2-12); NEUTROPHILS # (AUTO) 5.7 X10'3 (1.8-7.7); NEUTROPHILS % (AUTO) 75.1 % (42-75); PLATELET COUNT 259 X10'3 (140-440); RED BLOOD COUNT 2.91 X10'6 (4.20-5.60); WHITE BLOOD COUNT 7.6 X10'3 (4.5-11.0)
[2018-03-16] MEDS ORDERED: albuterol 2.5 MG/3 ML nebule CONTNEB PRN (14:35)
[2018-03-16] MEDS ORDERED: ipratropium 0.5 MG/2.5ML nebule IH ONE (14:35)
[2018-03-16] MEDS ORDERED: methylPREDNISolone sod succ 125mg/2ml vial IV ONE (14:35)
[2018-03-16 14:46] LABS: ALANINE AMINOTRANSFERASE 20 U/L (12-78); ALBUMIN 2.6 G/DL (3.4-5.0); ALBUMIN/GLOBULIN RATIO 0.7 (1.1-1.5); ALKALINE PHOSPHATASE 59 IU/L (46-116); ANION GAP 5 (8-16); ASPARTATE AMINO TRANSFERASE 11 U/L (10-37); BILIRUBIN,TOTAL 0.3 MG/DL (0.1-1.0); BLOOD UREA NITROGEN 14 MG/DL (7-18); BUN/CREATININE RATIO 10.8 (6.6-38.0); CALCIUM 8.9 MG/DL (8.5-10.1); CHLORIDE 98 MMOL/L (99-107); GLUCOSE 154 MG/DL (70-104); SODIUM 140 MMOL/L (135-145); TOTAL CARBON DIOXIDE 37.2 MMOL/L (24-32); TOTAL PROTEIN 6.6 G/DL (6.4-8.2); eGFR 42 ML/MIN
[2018-03-16 14:47] LABS: POTASSIUM 2.7 MMOL/L (3.5-5.1)
[2018-03-16] MEDS ORDERED: albuterol 2.5 mg/0.5ml nebule ONE (15:42)
[2018-03-16] MEDS ORDERED: magnesium hydroxide 30ml (MOM) UD suspension PO PRN (16:05)
[2018-03-16] MEDS ORDERED: potassium Cl 20 mEq SR tablet PO PRN (16:40)
[2018-03-16] MEDS ORDERED: potassium Cl 40MEQ/NS 500ml 500 ML IV PRN ×2 (16:40)
[2018-03-16] MEDS: potassium Cl 20 mEq SR tablet PO PRN ×2 (16:48→20:21)
[2018-03-16] MEDS ORDERED: DOCU-267 PO (17:02)
[2018-03-16] MEDS ORDERED: FURO20TA4 PO (17:02)
[2018-03-16] MEDS ORDERED: PANT-47 PO (17:02)
[2018-03-16] MEDS ORDERED: TRAV5DRO EACHEYE (17:02)
[2018-03-16] MEDS ORDERED: LEVO200T8 PO (17:02)
[2018-03-16] MEDS ORDERED: ERGO500056 PO (17:02)
[2018-03-16] MEDS: normal saline 1000ml 1,000 ML IV SCH (17:54)
[2018-03-16] MEDS: levoFLOXACIN-Levaquin 500mg/D5 100 ML IV SCH (17:54)
[2018-03-16] MEDS ORDERED: BUSP15TA12 PO (18:13)
[2018-03-16] MEDS: K and/or MAG REPLACEMENT MC SCH (18:15)
[2018-03-16] MEDS ORDERED: FLUT1BLS3 PO (18:23)
[2018-03-16] MEDS ORDERED: VENL150C58 PO (18:23)
[2018-03-16] MEDS ORDERED: LEVO175T7 PO (18:23)
[2018-03-16] MEDS ORDERED: TIOT4MIS2 PO (18:23)
[2018-03-16] MEDS ORDERED: CHOL10002 PO (18:28)
[2018-03-16] MEDS ORDERED: POLY255P2 PO (18:28)
[2018-03-16] MEDS ORDERED: HYDR-3686 PO (18:28)
[2018-03-16] MEDS: ipratropium/albuterol 3ml nebule NEB SCH ×2 (18:53→23:49)
[2018-03-16] MEDS: furosemide 20 MG/2 ML vial IV SCH (20:19)
[2018-03-16] MEDS: heparin, porcine 5000 units/ml vial SQ SCH (20:22)
[2018-03-16 21:45] VITALS: BP 109/63
[2018-03-16] MEDS: venlafaxine 25mg tablet PO SCH (22:32)
[2018-03-16] MEDS: gabapentin 400mg capsule PO SCH (22:33)
[2018-03-16] MEDS: traZODone 150mg tablet PO SCH (22:33)
[2018-03-17] MEDS: potassium Cl 20 mEq SR tablet PO PRN (00:25)
[2018-03-17] MEDS: methylPREDNISolone sod succ 125mg/2ml vial IV SCH ×3 (00:26→15:22)
[2018-03-17] MEDS: mag hydrox/Alum hydrox/simeth 30ml oral suspension PO PRN (00:27)
[2018-03-17] MEDS: acetaminophen 325mg tablet PO PRN ×2 (01:47→11:45)
[2018-03-17] MEDS: ipratropium/albuterol 3ml nebule NEB SCH ×6 (03:34→23:08)
[2018-03-17 05:08] LABS: BASOPHILS % (AUTO) 0.2 % (0-1); EOSINOPHILS # (AUTO) 0.1 X10'3 (0-0.9); EOSINOPHILS % (AUTO) 0.9 % (0-6); HEMATOCRIT 23.9 % (35.0-45.0); HEMOGLOBIN 7.7 g/dl (12.0-16.0); LYMPHOCYTES # (AUTO) 0.6 X10'3 (1.1-4.8); LYMPHOCYTES % (AUTO) 9.6 % (21-51); MEAN CORPUSCULAR HEMOGLOBIN 27.7 PG (27.0-31.0); MEAN CORPUSCULAR HGB CONC 32.4 % (33.0-36.5); MEAN CORPUSCULAR VOLUME 85.7 FL (78-98); MEAN PLATELET VOLUME 7.5 FL (7.4-10.4); MONOCYTES # (AUTO) 0.2 X10'3 (0-0.9); MONOCYTES % (AUTO) 2.9 % (2-12); NEUTROPHILS # (AUTO) 5.2 X10'3 (1.8-7.7); NEUTROPHILS % (AUTO) 86.4 % (42-75); PLATELET COUNT 250 X10'3 (140-440); RED BLOOD COUNT 2.79 X10'6 (4.20-5.60); RED CELL DISTRIBUTION WIDTH 17.2 % (11.5-14.5)
[2018-03-17 05:17] LABS: ALBUMIN 2.4 G/DL (3.4-5.0); ANION GAP 7 (8-16); BLOOD UREA NITROGEN 14 MG/DL (7-18); CALCIUM 8.6 MG/DL (8.5-10.1); CHLORIDE 99 MMOL/L (99-107); CREATININE 1.27 MG/DL (0.40-0.90); GLUCOSE 178 MG/DL (70-104); SODIUM 143 MMOL/L (135-145); TOTAL CARBON DIOXIDE 37.3 MMOL/L (24-32); eGFR 43 ML/MIN
[2018-03-17 06:00] VITALS: BP 144/83
[2018-03-17] MEDS: K and/or MAG REPLACEMENT MC SCH (08:00)
[2018-03-17] MEDS: venlafaxine 25mg tablet PO SCH ×2 (08:29→20:01)
[2018-03-17] MEDS: gabapentin 400mg capsule PO SCH ×2 (08:30→20:01)
[2018-03-17] MEDS: heparin, porcine 5000 units/ml vial SQ SCH ×2 (08:30→20:02)
[2018-03-17] MEDS: furosemide 20 MG/2 ML vial IV SCH ×2 (08:31→20:01)
[2018-03-17] MEDS: levoFLOXACIN-Levaquin 500mg/D5 100 ML IV SCH (08:32)
[2018-03-17] MEDS ORDERED: magnesium 4gm in 100ml NS 100 ML IV PRN (09:45)
[2018-03-17] MEDS ORDERED: potassium Cl 40MEQ/NS 500ml 500 ML IV PRN ×2 (09:45)
[2018-03-17] MEDS ORDERED: magnesium 1gm/100ml D5W IVPB 100 ML IV PRN (09:45)
[2018-03-17] MEDS ORDERED: potassium Cl 20 mEq SR tablet PO PRN ×2 (09:45)
[2018-03-17] MEDS ORDERED: magnesium Cl slow-release 64mg tablet PO PRN (09:45)
[2018-03-17] MEDS ORDERED: ipratropium/albuterol 3ml nebule IH PRN (10:15)
[2018-03-17 10:52] LABS: MAGNESIUM 1.4 MG/DL (1.5-2.4); POTASSIUM 4.3 MMOL/L (3.5-5.1)
[2018-03-17 11:00] VITALS: BP 130/67
[2018-03-17] MEDS ORDERED: non-formulary drug (Albuterol Sulfate Nebs* (Proventil Nebs*) 2.5 MG) IH SCH (11:00)
[2018-03-17] MEDS ORDERED: albuterol 2.5 MG/3 ML nebule NEB SCH (13:00)
[2018-03-17 14:44] VITALS: BP 130/67
[2018-03-17 15:00] VITALS: BP 141/78
[2018-03-17] MEDS ORDERED: guaiFENesin/DM/phenylephrine syrup 120ml bottle PO PRN (15:35)
[2018-03-17] MEDS: benzonatate 100mg capsule PO PRN (17:53)
[2018-03-17 19:00] VITALS: BP 141/77
[2018-03-17] MEDS: traZODone 150mg tablet PO SCH ×2 (19:46→20:01)
[2018-03-17] MEDS: guaiFENesin/DM oral syrup 5 ML CUP PO PRN (19:59)
[2018-03-17] MEDS ORDERED: furosemide 20MG tablet PO SCH (20:00)
[2018-03-17] MEDS: lactobacillus rhamnosus 10,000 MMU CELLS/CAPSULE PO SCH (20:00)
[2018-03-17] MEDS ORDERED: non-formulary drug (Gabapentin 2 TAB) PO SCH (20:00)
[2018-03-17] MEDS: spironolactone 25 MG tablet PO SCH (20:00)
[2018-03-17] MEDS: busPIRone 15mg tablet PO SCH (20:01)
[2018-03-17] MEDS: docusate sod 100mg capsule PO SCH (20:01)
[2018-03-17] MEDS: traZODone 50mg tablet PO SCH (20:02)
[2018-03-17] MEDS: latanoprost 0.005% 2.5ml ophthalmic drops EACHEYE SCH (20:02)
[2018-03-17] MEDS: budesonide 0.5mg/2ml UD nebule IH SCH (20:28)
[2018-03-17 23:00] VITALS: BP 126/81
[2018-03-18] MEDS: methylPREDNISolone sod succ 125mg/2ml vial IV SCH ×3 (00:25→16:02)
[2018-03-18] MEDS: guaiFENesin/DM oral syrup 5 ML CUP PO PRN ×4 (00:25→12:04)
[2018-03-18 03:00] VITALS: BP 147/94
[2018-03-18] MEDS: ipratropium/albuterol 3ml nebule NEB SCH ×6 (04:13→23:19)
[2018-03-18 04:50] LABS: BASOPHILS % (AUTO) 0 % (0-1); EOSINOPHILS # (AUTO) 0.2 X10'3 (0-0.9); EOSINOPHILS % (AUTO) 1.4 % (0-6); HEMATOCRIT 25.5 % (35.0-45.0); HEMOGLOBIN 8.1 g/dl (12.0-16.0); LYMPHOCYTES # (AUTO) 0.8 X10'3 (1.1-4.8); LYMPHOCYTES % (AUTO) 6.4 % (21-51); MEAN CORPUSCULAR HEMOGLOBIN 27.5 PG (27.0-31.0); MEAN CORPUSCULAR HGB CONC 31.7 % (33.0-36.5); MEAN CORPUSCULAR VOLUME 86.7 FL (78-98); MEAN PLATELET VOLUME 7.4 FL (7.4-10.4); MONOCYTES # (AUTO) 0.6 X10'3 (0-0.9); MONOCYTES % (AUTO) 4.8 % (2-12); NEUTROPHILS # (AUTO) 10.6 X10'3 (1.8-7.7); NEUTROPHILS % (AUTO) 87.4 % (42-75); PLATELET COUNT 317 X10'3 (140-440); RED BLOOD COUNT 2.94 X10'6 (4.20-5.60); RED CELL DISTRIBUTION WIDTH 17.4 % (11.5-14.5); WHITE BLOOD COUNT 12.1 X10'3 (4.5-11.0)
[2018-03-18 05:54] LABS: ALBUMIN 2.6 G/DL (3.4-5.0); ANION GAP 6 (8-16); BLOOD UREA NITROGEN 24 MG/DL (7-18); BUN/CREATININE RATIO 16.3 (6.6-38.0); CHLORIDE 99 MMOL/L (99-107); CREATININE 1.47 MG/DL (0.40-0.90); GLUCOSE 161 MG/DL (70-104); MAGNESIUM 1.8 MG/DL (1.5-2.4); POTASSIUM 4.2 MMOL/L (3.5-5.1); SODIUM 143 MMOL/L (135-145); TOTAL CARBON DIOXIDE 38.3 MMOL/L (24-32); eGFR 36 ML/MIN
[2018-03-18 06:00] VITALS: BP 132/76
[2018-03-18 06:09] LABS: FERRITIN 56 NG/ML (8-252)
[2018-03-18] MEDS: loratadine 10mg tablet PO SCH (07:51)
[2018-03-18] MEDS: vitamin D (cholecalciferol) 1,000 unit tablet PO SCH (07:51)
[2018-03-18] MEDS: aspirin 81mg tablet.DR PO SCH (07:52)
[2018-03-18] MEDS: gabapentin 400mg capsule PO SCH ×2 (07:52→20:28)
[2018-03-18] MEDS: levoTHYROXINE 75mcg tablet PO SCH (07:52)
[2018-03-18] MEDS: benzonatate 100mg capsule PO PRN ×2 (07:53→20:28)
[2018-03-18] MEDS: lactobacillus rhamnosus 10,000 MMU CELLS/CAPSULE PO SCH ×2 (07:53→20:29)
[2018-03-18] MEDS: atorvastatin 10mg tablet PO SCH (07:53)
[2018-03-18] MEDS: busPIRone 15mg tablet PO SCH ×2 (07:53→20:29)
[2018-03-18] MEDS: acetaminophen 325mg tablet PO PRN (07:53)
[2018-03-18] MEDS: docusate sod 100mg capsule PO SCH ×2 (07:53→20:29)
[2018-03-18] MEDS: furosemide 20 MG/2 ML vial IV SCH ×2 (07:54→20:29)
[2018-03-18] MEDS: heparin, porcine 5000 units/ml vial SQ SCH ×2 (07:55→20:29)
[2018-03-18] MEDS: levoFLOXACIN-Levaquin 500mg/D5 100 ML IV SCH (07:55)
[2018-03-18 08:00] LABS: % IRON SATURATION 6 % (11-46); IRON 20 UG/DL (49-151); TOTAL IRON BINDING CAPACITY 324 UG/DL (259-388)
[2018-03-18] MEDS ORDERED: venlafaxine XR 75mg capsule (Q24H) PO SCH (08:00)
[2018-03-18] MEDS ORDERED: TIOTROPIUM BROMIDE PO SCH (08:00)
[2018-03-18] MEDS: K and/or MAG REPLACEMENT MC SCH (08:00)
[2018-03-18] MEDS ORDERED: non-formulary drug (Budesonide/Formoterol Fumarate (Symbicort 80-4.5 Mcg Inhaler) 2 PUFFS) INH SCH (08:00)
[2018-03-18] MEDS ORDERED: levoTHYROXINE 175mcg tablet PO SCH (08:00)
[2018-03-18] MEDS ORDERED: non-formulary drug (Fluticasone/Vilanterol (Breo Ellipta 200-25 Mcg INH) 1 PUFF) PO SCH (08:00)
[2018-03-18] MEDS: pantoprazole 40mg Tablet.DR PO SCH (08:10)
[2018-03-18] MEDS: venlafaxine 25mg tablet PO SCH ×2 (08:11→20:27)
[2018-03-18] MEDS: spironolactone 25 MG tablet PO SCH ×2 (08:11→20:28)
[2018-03-18] MEDS: montelukast 10mg tablet PO SCH (08:11)
[2018-03-18] MEDS: polyethylene glycol 3350 17gm powd pack PO SCH (08:12)
[2018-03-18] MEDS: budesonide 0.5mg/2ml UD nebule IH SCH ×2 (08:32→19:34)
[2018-03-18 11:00] VITALS: BP 123/87
[2018-03-18] MEDS: carvedilol 6.25mg tablet PO SCH ×2 (12:04→20:28)
[2018-03-18] MEDS: hydrOXYzine 25 MG tablet PO PRN (14:41)
[2018-03-18] MEDS: HYDROcodone/acetaminophen 5mg/325mg tablet PO PRN ×2 (14:41→20:39)
[2018-03-18 15:00] VITALS: BP 131/85
[2018-03-18] MEDS: normal saline 1000ml 1,000 ML IV SCH (18:58)
[2018-03-18 19:00] VITALS: BP 150/94
[2018-03-18] MEDS: traZODone 150mg tablet PO SCH (20:28)
[2018-03-18] MEDS: latanoprost 0.005% 2.5ml ophthalmic drops EACHEYE SCH (20:33)
[2018-03-18] MEDS: traZODone 50mg tablet PO SCH (20:35)
[2018-03-18 23:00] VITALS: BP 148/104
[2018-03-19] MEDS: methylPREDNISolone sod succ 125mg/2ml vial IV SCH ×2 (00:31→08:33)
[2018-03-19 03:00] VITALS: BP 132/91
[2018-03-19] MEDS: ipratropium/albuterol 3ml nebule NEB SCH ×6 (03:39→22:54)
[2018-03-19 05:19] LABS: BASOPHILS % (AUTO) 0.1 % (0-1); EOSINOPHILS # (AUTO) 0.2 X10'3 (0-0.9); EOSINOPHILS % (AUTO) 1.2 % (0-6); HEMATOCRIT 25.2 % (35.0-45.0); HEMOGLOBIN 8.2 g/dl (12.0-16.0); LYMPHOCYTES # (AUTO) 1.2 X10'3 (1.1-4.8); LYMPHOCYTES % (AUTO) 8.5 % (21-51); MEAN CORPUSCULAR HGB CONC 32.6 % (33.0-36.5); MEAN CORPUSCULAR VOLUME 85.9 FL (78-98); MEAN PLATELET VOLUME 7.5 FL (7.4-10.4); MONOCYTES # (AUTO) 0.6 X10'3 (0-0.9); NEUTROPHILS # (AUTO) 12.2 X10'3 (1.8-7.7); NEUTROPHILS % (AUTO) 86.2 % (42-75); PLATELET COUNT 337 X10'3 (140-440); RED BLOOD COUNT 2.94 X10'6 (4.20-5.60); RED CELL DISTRIBUTION WIDTH 17.4 % (11.5-14.5); WHITE BLOOD COUNT 14.2 X10'3 (4.5-11.0)
[2018-03-19 05:32] LABS: ALBUMIN 2.7 G/DL (3.4-5.0); ANION GAP -1 (8-16); BLOOD UREA NITROGEN 37 MG/DL (7-18); BUN/CREATININE RATIO 22.6 (6.6-38.0); CALCIUM 8.7 MG/DL (8.5-10.1); CHLORIDE 98 MMOL/L (99-107); CREATININE 1.64 MG/DL (0.40-0.90); GLUCOSE 120 MG/DL (70-104); MAGNESIUM 1.9 MG/DL (1.5-2.4); POTASSIUM 4.7 MMOL/L (3.5-5.1); SODIUM 136 MMOL/L (135-145); TOTAL CARBON DIOXIDE 38.9 MMOL/L (24-32); eGFR 32 ML/MIN
[2018-03-19 06:00] VITALS: BP 148/82
[2018-03-19] MEDS: BUDESONIDE 0.25 MG/2 ML AMPUL.NEB IH SCH ×2 (07:08→19:04)
[2018-03-19] MEDS: K and/or MAG REPLACEMENT MC SCH (08:00)
[2018-03-19] MEDS: lactobacillus rhamnosus 10,000 MMU CELLS/CAPSULE PO SCH ×2 (08:32→20:25)
[2018-03-19] MEDS: venlafaxine 25mg tablet PO SCH ×2 (08:32→20:24)
[2018-03-19] MEDS: montelukast 10mg tablet PO SCH (08:32)
[2018-03-19] MEDS: polyethylene glycol 3350 17gm powd pack PO SCH (08:32)
[2018-03-19] MEDS: gabapentin 400mg capsule PO SCH ×2 (08:32→20:25)
[2018-03-19] MEDS: busPIRone 15mg tablet PO SCH ×2 (08:32→20:26)
[2018-03-19] MEDS: aspirin 81mg tablet.DR PO SCH (08:32)
[2018-03-19] MEDS: atorvastatin 10mg tablet PO SCH (08:32)
[2018-03-19] MEDS: docusate sod 100mg capsule PO SCH ×2 (08:32→20:24)
[2018-03-19] MEDS: loratadine 10mg tablet PO SCH (08:33)
[2018-03-19] MEDS: furosemide 20 MG/2 ML vial IV SCH (08:33)
[2018-03-19] MEDS: spironolactone 25 MG tablet PO SCH ×2 (08:33→20:23)
[2018-03-19] MEDS: vitamin D (cholecalciferol) 1,000 unit tablet PO SCH (08:33)
[2018-03-19] MEDS: carvedilol 6.25mg tablet PO SCH ×2 (08:33→20:25)
[2018-03-19] MEDS: pantoprazole 40mg Tablet.DR PO SCH (08:33)
[2018-03-19] MEDS: levoTHYROXINE 75mcg tablet PO SCH (08:33)
[2018-03-19] MEDS: levoFLOXACIN-Levaquin 500mg/D5 100 ML IV SCH (08:34)
[2018-03-19] MEDS: heparin, porcine 5000 units/ml vial SQ SCH ×2 (08:34→20:28)
[2018-03-19] MEDS: HYDROcodone/acetaminophen 5mg/325mg tablet PO PRN ×2 (09:48→13:52)
[2018-03-19] MEDS: hydrOXYzine 25 MG tablet PO PRN ×2 (09:48→13:52)
[2018-03-19 11:55] VITALS: BP 146/95
[2018-03-19] MEDS ORDERED: NUT.TX.IMP.RENAL FXN,LAC-REDUC (Nepro) 237 ML VANILLA PO SCH (13:00)
[2018-03-19] MEDS: benzonatate 100mg capsule PO PRN ×2 (13:54→23:19)
[2018-03-19 15:00] VITALS: BP 143/92
[2018-03-19] MEDS: methylPREDNISolone sod succ/PF 40mg inj. IV SCH ×2 (16:10→23:19)
[2018-03-19 19:00] VITALS: BP 136/90
[2018-03-19 19:52] LABS: OCCULT BLOOD STOOL NEGATIVE (Neg)
[2018-03-19] MEDS: traZODone 150mg tablet PO SCH (20:26)
[2018-03-19] MEDS: guaiFENesin/DM oral syrup 5 ML CUP PO PRN (20:26)
[2018-03-19] MEDS: latanoprost 0.005% 2.5ml ophthalmic drops EACHEYE SCH (20:31)
[2018-03-19] MEDS: traZODone 50mg tablet PO SCH (20:38)
[2018-03-19 23:00] VITALS: BP 141/83
[2018-03-20] MEDS: HYDROcodone/acetaminophen 5mg/325mg tablet PO PRN ×3 (02:41→18:21)
[2018-03-20 03:00] VITALS: BP 157/103
[2018-03-20] MEDS: ipratropium/albuterol 3ml nebule NEB SCH ×6 (03:15→22:42)
[2018-03-20 05:13] LABS: BASOPHILS % (AUTO) 0 % (0-1); EOSINOPHILS # (AUTO) 0.2 X10'3 (0-0.9); HEMATOCRIT 26.3 % (35.0-45.0); HEMOGLOBIN 8.7 g/dl (12.0-16.0); LYMPHOCYTES # (AUTO) 1.3 X10'3 (1.1-4.8); LYMPHOCYTES % (AUTO) 8.2 % (21-51); MEAN CORPUSCULAR HEMOGLOBIN 28.2 PG (27.0-31.0); MEAN CORPUSCULAR HGB CONC 33.1 % (33.0-36.5); MEAN CORPUSCULAR VOLUME 85.2 FL (78-98); MEAN PLATELET VOLUME 7.5 FL (7.4-10.4); MONOCYTES # (AUTO) 0.7 X10'3 (0-0.9); MONOCYTES % (AUTO) 4.1 % (2-12); NEUTROPHILS # (AUTO) 14.1 X10'3 (1.8-7.7); NEUTROPHILS % (AUTO) 86.7 % (42-75); PLATELET COUNT 338 X10'3 (140-440); RED BLOOD COUNT 3.08 X10'6 (4.20-5.60); RED CELL DISTRIBUTION WIDTH 16.8 % (11.5-14.5); WHITE BLOOD COUNT 16.3 X10'3 (4.5-11.0)
[2018-03-20 05:20] LABS: ALBUMIN 2.8 G/DL (3.4-5.0); ANION GAP 1 (8-16); BLOOD UREA NITROGEN 40 MG/DL (7-18); BUN/CREATININE RATIO 29.9 (6.6-38.0); CALCIUM 9.5 MG/DL (8.5-10.1); CHLORIDE 96 MMOL/L (99-107); CREATININE 1.34 MG/DL (0.40-0.90); GLUCOSE 123 MG/DL (70-104); MAGNESIUM 2.3 MG/DL (1.5-2.4); POTASSIUM 4.2 MMOL/L (3.5-5.1); SODIUM 138 MMOL/L (135-145); eGFR 40 ML/MIN
[2018-03-20 05:23] LABS: TOTAL CARBON DIOXIDE 40.6 MMOL/L (24-32)
[2018-03-20 06:00] VITALS: BP 147/90
[2018-03-20] MEDS: K and/or MAG REPLACEMENT MC SCH (06:53)
[2018-03-20] MEDS: levoFLOXACIN-Levaquin 500mg/D5 100 ML IV SCH (07:37)
[2018-03-20] MEDS: methylPREDNISolone sod succ/PF 40mg inj. IV SCH ×3 (07:38→21:03)
[2018-03-20] MEDS: BUDESONIDE 0.25 MG/2 ML AMPUL.NEB IH SCH ×2 (07:38→19:02)
[2018-03-20] MEDS: polyethylene glycol 3350 17gm powd pack PO SCH (07:38)
[2018-03-20] MEDS: docusate sod 100mg capsule PO SCH ×2 (07:39→21:04)
[2018-03-20] MEDS: venlafaxine 25mg tablet PO SCH (07:39)
[2018-03-20] MEDS: aspirin 81mg tablet.DR PO SCH (07:39)
[2018-03-20] MEDS: montelukast 10mg tablet PO SCH (07:40)
[2018-03-20] MEDS: spironolactone 25 MG tablet PO SCH ×2 (07:40→21:04)
[2018-03-20] MEDS: gabapentin 400mg capsule PO SCH ×2 (07:40→21:03)
[2018-03-20] MEDS: carvedilol 6.25mg tablet PO SCH ×2 (07:40→21:04)
[2018-03-20] MEDS: lactobacillus rhamnosus 10,000 MMU CELLS/CAPSULE PO SCH ×2 (07:40→21:04)
[2018-03-20] MEDS: busPIRone 15mg tablet PO SCH ×2 (07:40→21:03)
[2018-03-20] MEDS: vitamin D (cholecalciferol) 1,000 unit tablet PO SCH (07:40)
[2018-03-20] MEDS: loratadine 10mg tablet PO SCH (07:40)
[2018-03-20] MEDS: atorvastatin 10mg tablet PO SCH (07:40)
[2018-03-20] MEDS: pantoprazole 40mg Tablet.DR PO SCH (07:40)
[2018-03-20] MEDS: heparin, porcine 5000 units/ml vial SQ SCH ×2 (07:41→21:05)
[2018-03-20] MEDS: levoTHYROXINE 75mcg tablet PO SCH (07:41)
[2018-03-20] MEDS: benzonatate 100mg capsule PO PRN ×2 (07:42→21:03)
[2018-03-20] MEDS: hydrOXYzine 25 MG tablet PO PRN ×2 (07:52→18:21)
[2018-03-20 11:00] VITALS: BP 132/88
[2018-03-20] MEDS: ondansetron/PF 4mg/2ml inj IV PRN (12:01)
[2018-03-20 15:00] VITALS: BP 143/90
[2018-03-20] MEDS: normal saline 1000ml 1,000 ML IV SCH (16:49)
[2018-03-20 19:00] VITALS: BP 131/83
[2018-03-20] MEDS: traZODone 50mg tablet PO SCH (21:04)
[2018-03-20] MEDS: traZODone 150mg tablet PO SCH (21:05)
[2018-03-20] MEDS: latanoprost 0.005% 2.5ml ophthalmic drops EACHEYE SCH (21:05)
[2018-03-20] MEDS ORDERED: venlafaxine 25mg tablet PO ONE (22:05)
[2018-03-20] MEDS ORDERED: venlafaxine 37.5mg tablet PO ONE (22:10)
[2018-03-20] MEDS: venlafaxine 37.5mg tablet PO SCH (22:29)
[2018-03-20 23:00] VITALS: BP 147/57
[2018-03-21] MEDS: ipratropium/albuterol 3ml nebule NEB SCH ×6 (02:47→23:45)
[2018-03-21 03:00] VITALS: BP 158/107
[2018-03-21 05:13] LABS: BASOPHILS % (AUTO) 0.1 % (0-1); EOSINOPHILS # (AUTO) 0.2 X10'3 (0-0.9); EOSINOPHILS % (AUTO) 1.3 % (0-6); HEMATOCRIT 26.8 % (35.0-45.0); HEMOGLOBIN 8.9 g/dl (12.0-16.0); LYMPHOCYTES # (AUTO) 1.3 X10'3 (1.1-4.8); LYMPHOCYTES % (AUTO) 7.2 % (21-51); MEAN CORPUSCULAR HGB CONC 33.3 % (33.0-36.5); MEAN CORPUSCULAR VOLUME 84.1 FL (78-98); MEAN PLATELET VOLUME 7.5 FL (7.4-10.4); MONOCYTES # (AUTO) 0.6 X10'3 (0-0.9); MONOCYTES % (AUTO) 3.4 % (2-12); NEUTROPHILS # (AUTO) 15.7 X10'3 (1.8-7.7); PLATELET COUNT 370 X10'3 (140-440); RED BLOOD COUNT 3.18 X10'6 (4.20-5.60); RED CELL DISTRIBUTION WIDTH 16.9 % (11.5-14.5); WHITE BLOOD COUNT 17.9 X10'3 (4.5-11.0)
[2018-03-21 05:38] LABS: ALBUMIN 2.8 G/DL (3.4-5.0); ANION GAP 1 (8-16); BLOOD UREA NITROGEN 43 MG/DL (7-18); BUN/CREATININE RATIO 33.6 (6.6-38.0); CHLORIDE 98 MMOL/L (99-107); CREATININE 1.28 MG/DL (0.40-0.90); GLUCOSE 120 MG/DL (70-104); MAGNESIUM 2.1 MG/DL (1.5-2.4); POTASSIUM 4.7 MMOL/L (3.5-5.1); SODIUM 139 MMOL/L (135-145); eGFR 42 ML/MIN
[2018-03-21 05:44] LABS: ANISOCYTOSIS 1+; NUCLEATED RED BLOOD CELLS 1 /100WBC (0-0); PLATELET ESTIMATE NORMAL; STOMATOCYTES FEW; TOTAL CELLS COUNTED 100
[2018-03-21 06:00] VITALS: BP 150/89
[2018-03-21] MEDS: BUDESONIDE 0.25 MG/2 ML AMPUL.NEB IH SCH ×2 (07:50→19:48)
[2018-03-21] MEDS: K and/or MAG REPLACEMENT MC SCH (08:00)
[2018-03-21] MEDS: docusate sod 100mg capsule PO SCH ×2 (08:02→20:23)
[2018-03-21] MEDS: methylPREDNISolone sod succ/PF 40mg inj. IV SCH ×2 (08:02→20:25)
[2018-03-21] MEDS: polyethylene glycol 3350 17gm powd pack PO SCH (08:02)
[2018-03-21] MEDS: levoFLOXACIN-Levaquin 500mg/D5 100 ML IV SCH (08:02)
[2018-03-21] MEDS: montelukast 10mg tablet PO SCH (08:03)
[2018-03-21] MEDS: spironolactone 25 MG tablet PO SCH ×2 (08:03→20:22)
[2018-03-21] MEDS: aspirin 81mg tablet.DR PO SCH (08:03)
[2018-03-21] MEDS: loratadine 10mg tablet PO SCH (08:03)
[2018-03-21] MEDS: hydrOXYzine 25 MG tablet PO PRN ×2 (08:03→20:23)
[2018-03-21] MEDS: levoTHYROXINE 75mcg tablet PO SCH (08:03)
[2018-03-21] MEDS: vitamin D (cholecalciferol) 1,000 unit tablet PO SCH (08:03)
[2018-03-21] MEDS: atorvastatin 10mg tablet PO SCH (08:03)
[2018-03-21] MEDS: pantoprazole 40mg Tablet.DR PO SCH (08:03)
[2018-03-21] MEDS: benzonatate 100mg capsule PO PRN ×2 (08:03→17:28)
[2018-03-21] MEDS: busPIRone 15mg tablet PO SCH ×2 (08:03→20:22)
[2018-03-21] MEDS: carvedilol 6.25mg tablet PO SCH ×2 (08:03→20:23)
[2018-03-21] MEDS: lactobacillus rhamnosus 10,000 MMU CELLS/CAPSULE PO SCH ×2 (08:04→20:23)
[2018-03-21] MEDS: gabapentin 400mg capsule PO SCH ×2 (08:04→20:21)
[2018-03-21] MEDS: HYDROcodone/acetaminophen 5mg/325mg tablet PO PRN ×3 (08:04→20:24)
[2018-03-21] MEDS: heparin, porcine 5000 units/ml vial SQ SCH ×2 (08:05→20:25)
[2018-03-21 11:00] VITALS: BP 147/93
[2018-03-21] MEDS: clindamycin 600mg/D5W 50ml 50 ML IV SCH ×2 (13:51→20:21)
[2018-03-21 15:00] VITALS: BP 134/81
[2018-03-21 19:00] VITALS: BP 139/73
[2018-03-21] MEDS: venlafaxine 37.5mg tablet PO SCH (20:22)
[2018-03-21] MEDS: traZODone 50mg tablet PO SCH (20:22)
[2018-03-21] MEDS: traZODone 150mg tablet PO SCH (20:23)
[2018-03-21] MEDS: ferrous sulfate 325mg tablet PO SCH (20:23)
[2018-03-21] MEDS: latanoprost 0.005% 2.5ml ophthalmic drops EACHEYE SCH (20:25)
[2018-03-21 23:00] VITALS: BP 151/100
[2018-03-22] MEDS: clindamycin 600mg/D5W 50ml 50 ML IV SCH ×4 (02:11→22:07)
[2018-03-22 03:00] VITALS: BP 158/106
[2018-03-22] MEDS: ipratropium/albuterol 3ml nebule NEB SCH ×6 (03:25→23:39)
[2018-03-22 06:00] VITALS: BP 163/103
[2018-03-22] MEDS: BUDESONIDE 0.25 MG/2 ML AMPUL.NEB IH SCH ×2 (07:42→20:10)
[2018-03-22] MEDS: K and/or MAG REPLACEMENT MC SCH (08:00)
[2018-03-22] MEDS: polyethylene glycol 3350 17gm powd pack PO SCH (08:00)
[2018-03-22] MEDS: methylPREDNISolone sod succ/PF 40mg inj. IV SCH (09:01)
[2018-03-22] MEDS: busPIRone 15mg tablet PO SCH ×2 (09:02→22:08)
[2018-03-22] MEDS: lactobacillus rhamnosus 10,000 MMU CELLS/CAPSULE PO SCH ×2 (09:02→22:10)
[2018-03-22] MEDS: montelukast 10mg tablet PO SCH (09:02)
[2018-03-22] MEDS: vitamin D (cholecalciferol) 1,000 unit tablet PO SCH (09:02)
[2018-03-22] MEDS: levoTHYROXINE 75mcg tablet PO SCH (09:02)
[2018-03-22] MEDS: gabapentin 400mg capsule PO SCH ×2 (09:02→22:13)
[2018-03-22] MEDS: aspirin 81mg tablet.DR PO SCH (09:03)
[2018-03-22] MEDS: ferrous sulfate 325mg tablet PO SCH ×2 (09:03→22:12)
[2018-03-22] MEDS: loratadine 10mg tablet PO SCH (09:03)
[2018-03-22] MEDS: atorvastatin 10mg tablet PO SCH (09:03)
[2018-03-22] MEDS: ascorbic acid 500mg tablet PO SCH (09:03)
[2018-03-22] MEDS: carvedilol 6.25mg tablet PO SCH ×2 (09:03→22:09)
[2018-03-22] MEDS: spironolactone 25 MG tablet PO SCH ×2 (09:03→22:08)
[2018-03-22] MEDS: docusate sod 100mg capsule PO SCH ×2 (09:04→22:08)
[2018-03-22] MEDS: pantoprazole 40mg Tablet.DR PO SCH (09:04)
[2018-03-22] MEDS: venlafaxine 37.5mg tablet PO SCH ×2 (09:04→22:12)
[2018-03-22] MEDS: heparin, porcine 5000 units/ml vial SQ SCH ×2 (09:04→22:14)
[2018-03-22] MEDS: levoFLOXACIN-Levaquin 500mg/D5 100 ML IV SCH (09:05)
[2018-03-22] MEDS: benzonatate 100mg capsule PO PRN ×2 (09:18→21:21)
[2018-03-22] MEDS: HYDROcodone/acetaminophen 5mg/325mg tablet PO PRN ×3 (09:21→21:21)
[2018-03-22 10:30] LABS: BASOPHILS % (AUTO) 0.2 % (0-1); EOSINOPHILS # (AUTO) 0.2 X10'3 (0-0.9); HEMATOCRIT 28.9 % (35.0-45.0); HEMOGLOBIN 9.3 g/dl (12.0-16.0); LYMPHOCYTES # (AUTO) 1.9 X10'3 (1.1-4.8); LYMPHOCYTES % (AUTO) 8.7 % (21-51); MEAN CORPUSCULAR HEMOGLOBIN 27.3 PG (27.0-31.0); MEAN CORPUSCULAR HGB CONC 32.2 % (33.0-36.5); MEAN CORPUSCULAR VOLUME 84.8 FL (78-98); MEAN PLATELET VOLUME 7.4 FL (7.4-10.4); MONOCYTES # (AUTO) 0.5 X10'3 (0-0.9); MONOCYTES % (AUTO) 2.5 % (2-12); NEUTROPHILS # (AUTO) 18.7 X10'3 (1.8-7.7); NEUTROPHILS % (AUTO) 87.6 % (42-75); PLATELET COUNT 446 X10'3 (140-440); RED BLOOD COUNT 3.41 X10'6 (4.20-5.60); RED CELL DISTRIBUTION WIDTH 17.1 % (11.5-14.5); WHITE BLOOD COUNT 21.4 X10'3 (4.5-11.0)
[2018-03-22 10:33] LABS: ANION GAP 1 (8-16); BLOOD UREA NITROGEN 43 MG/DL (7-18); BUN/CREATININE RATIO 34.1 (6.6-38.0); CALCIUM 9.1 MG/DL (8.5-10.1); CHLORIDE 97 MMOL/L (99-107); CREATININE 1.26 MG/DL (0.40-0.90); GLUCOSE 186 MG/DL (70-104); POTASSIUM 4.6 MMOL/L (3.5-5.1); SODIUM 138 MMOL/L (135-145); TOTAL CARBON DIOXIDE 39.8 MMOL/L (24-32); eGFR 43 ML/MIN
[2018-03-22 10:53] LABS: ANISOCYTOSIS 1+; LARGE PLATELETS FEW; PLATELET ESTIMATE INCREASED; POLYCHROMASIA 1+
[2018-03-22 11:00] VITALS: BP 149/69
[2018-03-22 15:00] VITALS: BP 155/95
[2018-03-22] MEDS: normal saline 1000ml 1,000 ML IV SCH (16:05)
[2018-03-22 19:00] VITALS: BP 159/92
[2018-03-22] MEDS: traZODone 150mg tablet PO SCH (20:00)
[2018-03-22] MEDS: traZODone 50mg tablet PO SCH (21:00)
[2018-03-22] MEDS: hydrOXYzine 25 MG tablet PO PRN (21:21)
[2018-03-22] MEDS: latanoprost 0.005% 2.5ml ophthalmic drops EACHEYE SCH (22:14)
[2018-03-22 23:00] VITALS: BP 149/87
[2018-03-23 03:00] VITALS: BP 144/95
[2018-03-23] MEDS: clindamycin 600mg/D5W 50ml 50 ML IV SCH ×4 (03:06→20:52)
[2018-03-23] MEDS: ipratropium/albuterol 3ml nebule NEB SCH ×6 (03:30→23:20)
[2018-03-23 05:40] LABS: ALANINE AMINOTRANSFERASE 31 U/L (12-78); ALBUMIN 2.9 G/DL (3.4-5.0); ALBUMIN/GLOBULIN RATIO 0.9 (1.1-1.5); ALKALINE PHOSPHATASE 59 IU/L (46-116); ANION GAP -1 (8-16); ASPARTATE AMINO TRANSFERASE 19 U/L (10-37); BILIRUBIN,TOTAL 0.2 MG/DL (0.1-1.0); BLOOD UREA NITROGEN 39 MG/DL (7-18); BUN/CREATININE RATIO 30.5 (6.6-38.0); CALCIUM 8.7 MG/DL (8.5-10.1); CHLORIDE 100 MMOL/L (99-107); CREATININE 1.28 MG/DL (0.40-0.90); GLUCOSE 81 MG/DL (70-104); MAGNESIUM 2.3 MG/DL (1.5-2.4); PHOSPHORUS 4.2 MG/DL (2.3-4.5); POTASSIUM 4.7 MMOL/L (3.5-5.1); SODIUM 139 MMOL/L (135-145); TOTAL PROTEIN 6.3 G/DL (6.4-8.2); eGFR 42 ML/MIN
[2018-03-23 06:00] VITALS: BP 150/90
[2018-03-23 06:44] LABS: HEMATOCRIT 27.3 % (35.0-45.0); HEMOGLOBIN 9.1 g/dl (12.0-16.0); MEAN CORPUSCULAR HEMOGLOBIN 28.5 PG (27.0-31.0); MEAN CORPUSCULAR HGB CONC 33.3 % (33.0-36.5); MEAN CORPUSCULAR VOLUME 85.4 FL (78-98); MEAN PLATELET VOLUME 7.8 FL (7.4-10.4); PLATELET COUNT 436 X10'3 (140-440); RED CELL DISTRIBUTION WIDTH 16.6 % (11.5-14.5); WHITE BLOOD COUNT 20.7 X10'3 (4.5-11.0)
[2018-03-23 07:21] LABS: TOTAL CELLS COUNTED 100
[2018-03-23 07:22] LABS: PLATELET ESTIMATE INCREASED
[2018-03-23 07:24] LABS: ELLIPTOCYTES 1+; POLYCHROMASIA FEW
[2018-03-23 07:26] LABS: TEAR DROP CELLS FEW
[2018-03-23] MEDS: BUDESONIDE 0.25 MG/2 ML AMPUL.NEB IH SCH ×2 (07:33→19:44)
[2018-03-23] MEDS: K and/or MAG REPLACEMENT MC SCH (08:00)
[2018-03-23] MEDS: polyethylene glycol 3350 17gm powd pack PO SCH (08:35)
[2018-03-23] MEDS: methylPREDNISolone sod succ/PF 40mg inj. IV SCH (08:37)
[2018-03-23] MEDS: levoFLOXACIN-Levaquin 500mg/D5 100 ML IV SCH (08:37)
[2018-03-23] MEDS: heparin, porcine 5000 units/ml vial SQ SCH ×2 (08:38→20:52)
[2018-03-23] MEDS: venlafaxine 37.5mg tablet PO SCH ×2 (08:38→20:50)
[2018-03-23] MEDS: docusate sod 100mg capsule PO SCH ×2 (08:39→20:51)
[2018-03-23] MEDS: gabapentin 400mg capsule PO SCH ×2 (08:39→20:51)
[2018-03-23] MEDS: lactobacillus rhamnosus 10,000 MMU CELLS/CAPSULE PO SCH ×2 (08:39→20:51)
[2018-03-23] MEDS: ferrous sulfate 325mg tablet PO SCH ×2 (08:39→20:51)
[2018-03-23] MEDS: carvedilol 6.25mg tablet PO SCH ×2 (08:39→20:51)
[2018-03-23] MEDS: atorvastatin 10mg tablet PO SCH (08:39)
[2018-03-23] MEDS: spironolactone 25 MG tablet PO SCH ×2 (08:39→20:51)
[2018-03-23] MEDS: pantoprazole 40mg Tablet.DR PO SCH (08:39)
[2018-03-23] MEDS: vitamin D (cholecalciferol) 1,000 unit tablet PO SCH (08:39)
[2018-03-23] MEDS: aspirin 81mg tablet.DR PO SCH (08:39)
[2018-03-23] MEDS: levoTHYROXINE 75mcg tablet PO SCH (08:39)
[2018-03-23] MEDS: ascorbic acid 500mg tablet PO SCH (08:39)
[2018-03-23] MEDS: montelukast 10mg tablet PO SCH (08:40)
[2018-03-23] MEDS: busPIRone 15mg tablet PO SCH ×2 (08:40→20:51)
[2018-03-23] MEDS: loratadine 10mg tablet PO SCH (08:40)
[2018-03-23] MEDS: benzonatate 100mg capsule PO PRN (08:51)
[2018-03-23] MEDS: HYDROcodone/acetaminophen 5mg/325mg tablet PO PRN ×2 (08:52→14:04)
[2018-03-23 11:00] VITALS: BP 120/97
[2018-03-23] MEDS: hydrOXYzine 25 MG tablet PO PRN (14:02)
[2018-03-23 15:00] VITALS: BP 151/92
[2018-03-23 19:00] VITALS: BP 147/96
[2018-03-23] MEDS: ondansetron/PF 4mg/2ml inj IV PRN (19:15)
[2018-03-23] MEDS: traZODone 150mg tablet PO SCH (20:51)
[2018-03-23] MEDS: traZODone 50mg tablet PO SCH (20:53)
[2018-03-23] MEDS: latanoprost 0.005% 2.5ml ophthalmic drops EACHEYE SCH (20:53)
[2018-03-23 23:00] VITALS: BP 145/93
[2018-03-24] MEDS: clindamycin 600mg/D5W 50ml 50 ML IV SCH ×4 (02:25→21:21)
[2018-03-24 03:00] VITALS: BP 138/80
[2018-03-24] MEDS: ipratropium/albuterol 3ml nebule NEB SCH ×6 (03:35→23:33)
[2018-03-24 04:37] LABS: BASOPHILS # (AUTO) 0.1 X10'3 (0-0.2); BASOPHILS % (AUTO) 0.5 % (0-1); EOSINOPHILS % (AUTO) 0 % (0-6); HEMATOCRIT 27.5 % (35.0-45.0); HEMOGLOBIN 8.9 g/dl (12.0-16.0); LYMPHOCYTES # (AUTO) 2.9 X10'3 (1.1-4.8); LYMPHOCYTES % (AUTO) 12.5 % (21-51); MEAN CORPUSCULAR HEMOGLOBIN 27.4 PG (27.0-31.0); MEAN CORPUSCULAR HGB CONC 32.4 % (33.0-36.5); MEAN CORPUSCULAR VOLUME 84.5 FL (78-98); MEAN PLATELET VOLUME 7.3 FL (7.4-10.4); MONOCYTES # (AUTO) 1.1 X10'3 (0-0.9); MONOCYTES % (AUTO) 4.8 % (2-12); NEUTROPHILS # (AUTO) 18.7 X10'3 (1.8-7.7); NEUTROPHILS % (AUTO) 82.2 % (42-75); PLATELET COUNT 464 X10'3 (140-440); RED BLOOD COUNT 3.25 X10'6 (4.20-5.60); RED CELL DISTRIBUTION WIDTH 17.9 % (11.5-14.5); WHITE BLOOD COUNT 22.8 X10'3 (4.5-11.0)
[2018-03-24 05:08] LABS: ALANINE AMINOTRANSFERASE 27 U/L (12-78); ALBUMIN 2.9 G/DL (3.4-5.0); ALBUMIN/GLOBULIN RATIO 0.9 (1.1-1.5); ALKALINE PHOSPHATASE 47 IU/L (46-116); ANION GAP -1 (8-16); ASPARTATE AMINO TRANSFERASE 13 U/L (10-37); BILIRUBIN,TOTAL 0.2 MG/DL (0.1-1.0); BLOOD UREA NITROGEN 37 MG/DL (7-18); BUN/CREATININE RATIO 34.9 (6.6-38.0); CALCIUM 9.2 MG/DL (8.5-10.1); CHLORIDE 100 MMOL/L (99-107); CREATININE 1.06 MG/DL (0.40-0.90); GLUCOSE 79 MG/DL (70-104); MAGNESIUM 2.3 MG/DL (1.5-2.4); POTASSIUM 4.9 MMOL/L (3.5-5.1); SODIUM 138 MMOL/L (135-145); TOTAL CARBON DIOXIDE 38.6 MMOL/L (24-32); TOTAL PROTEIN 6.2 G/DL (6.4-8.2); eGFR 53 ML/MIN
[2018-03-24 05:20] LABS: ANISOCYTOSIS 2+; PLATELET ESTIMATE INCREASED; POLYCHROMASIA 1+; TOTAL CELLS COUNTED 100
[2018-03-24 05:21] LABS: TEAR DROP CELLS FEW
[2018-03-24 06:00] VITALS: BP 141/83
[2018-03-24] MEDS: BUDESONIDE 0.25 MG/2 ML AMPUL.NEB IH SCH ×2 (07:31→19:25)
[2018-03-24] MEDS: polyethylene glycol 3350 17gm powd pack PO SCH (08:00)
[2018-03-24] MEDS: K and/or MAG REPLACEMENT MC SCH (08:00)
[2018-03-24] MEDS: methylPREDNISolone sod succ/PF 40mg inj. IV SCH (08:11)
[2018-03-24] MEDS: heparin, porcine 5000 units/ml vial SQ SCH ×2 (08:11→21:21)
[2018-03-24] MEDS: atorvastatin 10mg tablet PO SCH (08:12)
[2018-03-24] MEDS: carvedilol 6.25mg tablet PO SCH ×2 (08:12→21:21)
[2018-03-24] MEDS: spironolactone 25 MG tablet PO SCH ×2 (08:12→21:20)
[2018-03-24] MEDS: docusate sod 100mg capsule PO SCH ×2 (08:12→21:19)
[2018-03-24] MEDS: vitamin D (cholecalciferol) 1,000 unit tablet PO SCH (08:12)
[2018-03-24] MEDS: ascorbic acid 500mg tablet PO SCH (08:12)
[2018-03-24] MEDS: aspirin 81mg tablet.DR PO SCH (08:12)
[2018-03-24] MEDS: levoTHYROXINE 75mcg tablet PO SCH (08:12)
[2018-03-24] MEDS: loratadine 10mg tablet PO SCH (08:12)
[2018-03-24] MEDS: ferrous sulfate 325mg tablet PO SCH ×2 (08:12→21:20)
[2018-03-24] MEDS: pantoprazole 40mg Tablet.DR PO SCH (08:12)
[2018-03-24] MEDS: gabapentin 400mg capsule PO SCH ×2 (08:13→21:35)
[2018-03-24] MEDS: venlafaxine 37.5mg tablet PO SCH ×2 (08:13→21:17)
[2018-03-24] MEDS: montelukast 10mg tablet PO SCH (08:13)
[2018-03-24] MEDS: levoFLOXACIN-Levaquin 500mg/D5 100 ML IV SCH (08:13)
[2018-03-24] MEDS: busPIRone 15mg tablet PO SCH ×2 (08:13→21:18)
[2018-03-24] MEDS: lactobacillus rhamnosus 10,000 MMU CELLS/CAPSULE PO SCH ×2 (08:57→21:20)
[2018-03-24] MEDS: hydrOXYzine 25 MG tablet PO PRN ×2 (10:33→19:10)
[2018-03-24] MEDS: HYDROcodone/acetaminophen 5mg/325mg tablet PO PRN ×2 (10:33→19:10)
[2018-03-24 11:00] VITALS: BP 125/80
[2018-03-24 15:00] VITALS: BP 146/91
[2018-03-24] MEDS: normal saline 1000ml 1,000 ML IV SCH (16:05)
[2018-03-24 18:00] VITALS: BP 149/85
[2018-03-24] MEDS: traZODone 50mg tablet PO SCH (21:00)
[2018-03-24] MEDS: traZODone 150mg tablet PO SCH (21:19)
[2018-03-24] MEDS: latanoprost 0.005% 2.5ml ophthalmic drops EACHEYE SCH (21:36)
[2018-03-24 22:00] VITALS: BP 136/84
[2018-03-25 02:00] VITALS: BP 144/89
[2018-03-25] MEDS: clindamycin 600mg/D5W 50ml 50 ML IV SCH ×2 (02:30→08:08)
[2018-03-25] MEDS: guaiFENesin/DM oral syrup 5 ML CUP PO PRN ×2 (02:39→20:38)
[2018-03-25] MEDS: ipratropium/albuterol 3ml nebule NEB SCH ×6 (03:32→23:19)
[2018-03-25 05:52] LABS: BASOPHILS % (AUTO) 0.1 % (0-1); EOSINOPHILS % (AUTO) 0.1 % (0-6); HEMOGLOBIN 9.7 g/dl (12.0-16.0); LYMPHOCYTES # (AUTO) 3.7 X10'3 (1.1-4.8); LYMPHOCYTES % (AUTO) 13.5 % (21-51); MEAN CORPUSCULAR HGB CONC 33.5 % (33.0-36.5); MEAN CORPUSCULAR VOLUME 86.6 FL (78-98); MEAN PLATELET VOLUME 8.3 FL (7.4-10.4); MONOCYTES # (AUTO) 1.5 X10'3 (0-0.9); MONOCYTES % (AUTO) 5.4 % (2-12); NEUTROPHILS # (AUTO) 21.8 X10'3 (1.8-7.7); NEUTROPHILS % (AUTO) 80.9 % (42-75); PLATELET COUNT 535 X10'3 (140-440); RED BLOOD COUNT 3.35 X10'6 (4.20-5.60); RED CELL DISTRIBUTION WIDTH 17.2 % (11.5-14.5)
[2018-03-25 06:04] LABS: ALANINE AMINOTRANSFERASE 21 U/L (12-78); ALBUMIN/GLOBULIN RATIO 0.9 (1.1-1.5); ALKALINE PHOSPHATASE 64 IU/L (46-116); ANION GAP 2 (8-16); ASPARTATE AMINO TRANSFERASE 17 U/L (10-37); BILIRUBIN,TOTAL 0.2 MG/DL (0.1-1.0); BLOOD UREA NITROGEN 37 MG/DL (7-18); BUN/CREATININE RATIO 30.6 (6.6-38.0); CALCIUM 9.3 MG/DL (8.5-10.1); CHLORIDE 98 MMOL/L (99-107); CREATININE 1.21 MG/DL (0.40-0.90); GLUCOSE 99 MG/DL (70-104); PHOSPHORUS 4.5 MG/DL (2.3-4.5); POTASSIUM 4.5 MMOL/L (3.5-5.1); SODIUM 139 MMOL/L (135-145); TOTAL CARBON DIOXIDE 39.4 MMOL/L (24-32); TOTAL PROTEIN 6.5 G/DL (6.4-8.2); eGFR 45 ML/MIN
[2018-03-25 06:45] LABS: BANDS% (MANUAL) 6 % (0-10); LYMPHOCYTES % (MANUAL) 16 % (21-51); MONOCYTES % (MANUAL) 4 % (2-12); NEUTROPHILS % (MANUAL) 67 % (42-75); TOTAL CELLS COUNTED 100
[2018-03-25 06:46] LABS: ANISOCYTOSIS 1+; LARGE PLATELETS FEW; METAMYLEOCYTES% (MANUAL) 8 % (0-0); PLATELET ESTIMATE INCREASED
[2018-03-25 07:13] VITALS: BP 149/96
[2018-03-25] MEDS: BUDESONIDE 0.25 MG/2 ML AMPUL.NEB IH SCH ×2 (07:44→18:36)
[2018-03-25] MEDS: K and/or MAG REPLACEMENT MC SCH (08:00)
[2018-03-25] MEDS: gabapentin 400mg capsule PO SCH ×2 (08:00→20:24)
[2018-03-25] MEDS: docusate sod 100mg capsule PO SCH ×2 (08:04→20:25)
[2018-03-25] MEDS: venlafaxine 37.5mg tablet PO SCH ×2 (08:04→20:24)
[2018-03-25] MEDS: pantoprazole 40mg Tablet.DR PO SCH (08:05)
[2018-03-25] MEDS: ferrous sulfate 325mg tablet PO SCH ×2 (08:05→20:25)
[2018-03-25] MEDS: atorvastatin 10mg tablet PO SCH (08:05)
[2018-03-25] MEDS: lactobacillus rhamnosus 10,000 MMU CELLS/CAPSULE PO SCH ×2 (08:05→20:24)
[2018-03-25] MEDS: levoTHYROXINE 75mcg tablet PO SCH (08:06)
[2018-03-25] MEDS: montelukast 10mg tablet PO SCH (08:06)
[2018-03-25] MEDS: vitamin D (cholecalciferol) 1,000 unit tablet PO SCH (08:06)
[2018-03-25] MEDS: spironolactone 25 MG tablet PO SCH ×2 (08:07→20:25)
[2018-03-25] MEDS: busPIRone 15mg tablet PO SCH ×2 (08:07→20:25)
[2018-03-25] MEDS: carvedilol 6.25mg tablet PO SCH ×2 (08:07→20:26)
[2018-03-25] MEDS: aspirin 81mg tablet.DR PO SCH (08:07)
[2018-03-25] MEDS: ascorbic acid 500mg tablet PO SCH (08:08)
[2018-03-25] MEDS: levoFLOXACIN-Levaquin 500mg/D5 100 ML IV SCH (08:08)
[2018-03-25] MEDS: methylPREDNISolone sod succ/PF 40mg inj. IV SCH (08:08)
[2018-03-25] MEDS: heparin, porcine 5000 units/ml vial SQ SCH ×2 (08:09→20:25)
[2018-03-25] MEDS: loratadine 10mg tablet PO SCH (08:10)
[2018-03-25] MEDS: polyethylene glycol 3350 17gm powd pack PO SCH (08:10)
[2018-03-25] MEDS: hydrOXYzine 25 MG tablet PO PRN ×2 (10:31→18:13)
[2018-03-25] MEDS: HYDROcodone/acetaminophen 5mg/325mg tablet PO PRN ×3 (10:32→20:24)
[2018-03-25 11:00] VITALS: BP 142/86
[2018-03-25 15:00] VITALS: BP 145/91
[2018-03-25] MEDS: furosemide 20 MG/2 ML vial IV SCH ×2 (15:10→20:26)
[2018-03-25 18:00] VITALS: BP 142/92
[2018-03-25] MEDS: traZODone 150mg tablet PO SCH (20:25)
[2018-03-25] MEDS: latanoprost 0.005% 2.5ml ophthalmic drops EACHEYE SCH (20:26)
[2018-03-25] MEDS: benzonatate 100mg capsule PO PRN (20:38)
[2018-03-25] MEDS: traZODone 50mg tablet PO SCH (21:00)
[2018-03-25 22:00] VITALS: BP 147/91
[2018-03-25] MEDS ORDERED: VANCOMYCIN LEVEL IV NR (22:30)
[2018-03-26 02:00] VITALS: BP 105/78
[2018-03-26] MEDS: ipratropium/albuterol 3ml nebule NEB SCH ×6 (03:00→23:53)
[2018-03-26 06:00] VITALS: BP 140/88
[2018-03-26 06:06] LABS: BASOPHILS # (AUTO) 0.1 X10'3 (0-0.2); BASOPHILS % (AUTO) 0.2 % (0-1); EOSINOPHILS # (AUTO) 0.2 X10'3 (0-0.9); EOSINOPHILS % (AUTO) 0.7 % (0-6); HEMATOCRIT 28.6 % (35.0-45.0); HEMOGLOBIN 9.4 g/dl (12.0-16.0); LYMPHOCYTES % (AUTO) 12.9 % (21-51); MEAN CORPUSCULAR HEMOGLOBIN 27.9 PG (27.0-31.0); MEAN CORPUSCULAR HGB CONC 33.1 % (33.0-36.5); MEAN CORPUSCULAR VOLUME 84.5 FL (78-98); MEAN PLATELET VOLUME 8.4 FL (7.4-10.4); MONOCYTES # (AUTO) 1.7 X10'3 (0-0.9); MONOCYTES % (AUTO) 7.1 % (2-12); NEUTROPHILS # (AUTO) 18.4 X10'3 (1.8-7.7); NEUTROPHILS % (AUTO) 79.1 % (42-75); PLATELET COUNT 508 X10'3 (140-440); RED BLOOD COUNT 3.38 X10'6 (4.20-5.60); RED CELL DISTRIBUTION WIDTH 18.2 % (11.5-14.5); WHITE BLOOD COUNT 23.2 X10'3 (4.5-11.0)
[2018-03-26 06:24] LABS: ALANINE AMINOTRANSFERASE 25 U/L (12-78); ALBUMIN 3.1 G/DL (3.4-5.0); ALBUMIN/GLOBULIN RATIO 0.9 (1.1-1.5); ALKALINE PHOSPHATASE 58 IU/L (46-116); ANION GAP 2 (8-16); ASPARTATE AMINO TRANSFERASE 13 U/L (10-37); BILIRUBIN,TOTAL 0.2 MG/DL (0.1-1.0); BLOOD UREA NITROGEN 41 MG/DL (7-18); BUN/CREATININE RATIO 29.5 (6.6-38.0); CALCIUM 9.7 MG/DL (8.5-10.1); CHLORIDE 96 MMOL/L (99-107); CREATININE 1.39 MG/DL (0.40-0.90); GLUCOSE 87 MG/DL (70-104); PHOSPHORUS 4.8 MG/DL (2.3-4.5); POTASSIUM 4.1 MMOL/L (3.5-5.1); SODIUM 139 MMOL/L (135-145); TOTAL PROTEIN 6.4 G/DL (6.4-8.2); eGFR 38 ML/MIN
[2018-03-26 06:25] LABS: TOTAL CARBON DIOXIDE 41.2 MMOL/L (24-32)
[2018-03-26] MEDS: BUDESONIDE 0.25 MG/2 ML AMPUL.NEB IH SCH ×2 (07:09→19:03)
[2018-03-26] MEDS ORDERED: furosemide 40mg tablet PO SCH (08:00)
[2018-03-26] MEDS: polyethylene glycol 3350 17gm powd pack PO SCH (08:00)
[2018-03-26] MEDS: K and/or MAG REPLACEMENT MC SCH (08:00)
[2018-03-26] MEDS: gabapentin 400mg capsule PO SCH ×2 (09:13→20:16)
[2018-03-26] MEDS: venlafaxine 37.5mg tablet PO SCH ×2 (09:13→20:17)
[2018-03-26] MEDS: spironolactone 25 MG tablet PO SCH ×2 (09:14→20:16)
[2018-03-26] MEDS: ferrous sulfate 325mg tablet PO SCH ×2 (09:14→20:16)
[2018-03-26] MEDS: vitamin D (cholecalciferol) 1,000 unit tablet PO SCH (09:15)
[2018-03-26] MEDS: lactobacillus rhamnosus 10,000 MMU CELLS/CAPSULE PO SCH ×2 (09:15→20:16)
[2018-03-26] MEDS: carvedilol 6.25mg tablet PO SCH ×2 (09:15→20:16)
[2018-03-26] MEDS: docusate sod 100mg capsule PO SCH ×2 (09:15→20:00)
[2018-03-26] MEDS: busPIRone 15mg tablet PO SCH ×2 (09:16→20:15)
[2018-03-26] MEDS: pantoprazole 40mg Tablet.DR PO SCH (09:17)
[2018-03-26] MEDS: atorvastatin 10mg tablet PO SCH (09:17)
[2018-03-26] MEDS: levoTHYROXINE 75mcg tablet PO SCH (09:17)
[2018-03-26] MEDS: hydrOXYzine 25 MG tablet PO PRN (09:18)
[2018-03-26] MEDS: ascorbic acid 500mg tablet PO SCH (09:18)
[2018-03-26] MEDS: aspirin 81mg tablet.DR PO SCH (09:18)
[2018-03-26] MEDS: HYDROcodone/acetaminophen 5mg/325mg tablet PO PRN ×3 (09:19→20:17)
[2018-03-26] MEDS: heparin, porcine 5000 units/ml vial SQ SCH ×2 (09:22→20:14)
[2018-03-26] MEDS: furosemide 20 MG/2 ML vial IV SCH (09:22)
[2018-03-26 09:30] LABS: TOTAL CELLS COUNTED 100
[2018-03-26 09:31] LABS: ANISOCYTOSIS 2+; PLATELET ESTIMATE INCREASED; TOXIC GRANULATION 1+
[2018-03-26] MEDS: benzonatate 100mg capsule PO PRN (10:04)
[2018-03-26 11:00] VITALS: BP 133/77
[2018-03-26] MEDS: furosemide 20MG tablet PO SCH ×2 (12:44→20:15)
[2018-03-26 15:00] VITALS: BP 137/80
[2018-03-26] MEDS: normal saline 1000ml 1,000 ML IV SCH (16:05)
[2018-03-26 19:00] VITALS: BP 120/80
[2018-03-26] MEDS: guaiFENesin/DM oral syrup 5 ML CUP PO PRN (19:22)
[2018-03-26] MEDS: traZODone 150mg tablet PO SCH (20:00)
[2018-03-26] MEDS ORDERED: furosemide 20MG tablet PO SCH (20:00)
[2018-03-26] MEDS: traZODone 50mg tablet PO SCH (20:15)
[2018-03-26] MEDS: latanoprost 0.005% 2.5ml ophthalmic drops EACHEYE SCH (20:15)
[2018-03-26 23:00] VITALS: BP 119/78
[2018-03-27 03:00] VITALS: BP 111/81
[2018-03-27] MEDS: ipratropium/albuterol 3ml nebule NEB SCH ×6 (03:44→23:06)
[2018-03-27 05:54] LABS: BASOPHILS % (AUTO) 0.2 % (0-1); EOSINOPHILS # (AUTO) 0.2 X10'3 (0-0.9); EOSINOPHILS % (AUTO) 0.9 % (0-6); HEMATOCRIT 29.7 % (35.0-45.0); HEMOGLOBIN 9.7 g/dl (12.0-16.0); LYMPHOCYTES # (AUTO) 3.1 X10'3 (1.1-4.8); LYMPHOCYTES % (AUTO) 15.3 % (21-51); MEAN CORPUSCULAR HEMOGLOBIN 27.9 PG (27.0-31.0); MEAN CORPUSCULAR HGB CONC 32.8 % (33.0-36.5); MEAN CORPUSCULAR VOLUME 85.1 FL (78-98); MEAN PLATELET VOLUME 8.1 FL (7.4-10.4); MONOCYTES # (AUTO) 1.7 X10'3 (0-0.9); MONOCYTES % (AUTO) 8.2 % (2-12); NEUTROPHILS # (AUTO) 15.5 X10'3 (1.8-7.7); NEUTROPHILS % (AUTO) 75.4 % (42-75); PLATELET COUNT 503 X10'3 (140-440); RED BLOOD COUNT 3.49 X10'6 (4.20-5.60); RED CELL DISTRIBUTION WIDTH 18.9 % (11.5-14.5); WHITE BLOOD COUNT 20.5 X10'3 (4.5-11.0)
[2018-03-27 06:00] VITALS: BP 146/90
[2018-03-27 06:04] LABS: ALANINE AMINOTRANSFERASE 21 U/L (12-78); ALBUMIN 3.3 G/DL (3.4-5.0); ALKALINE PHOSPHATASE 60 IU/L (46-116); ANION GAP 1 (8-16); ASPARTATE AMINO TRANSFERASE 17 U/L (10-37); BILIRUBIN,TOTAL 0.2 MG/DL (0.1-1.0); BLOOD UREA NITROGEN 43 MG/DL (7-18); BUN/CREATININE RATIO 37.1 (6.6-38.0); CALCIUM 9.2 MG/DL (8.5-10.1); CHLORIDE 94 MMOL/L (99-107); CREATININE 1.16 MG/DL (0.40-0.90); GLUCOSE 88 MG/DL (70-104); MAGNESIUM 1.8 MG/DL (1.5-2.4); PHOSPHORUS 5.1 MG/DL (2.3-4.5); SODIUM 137 MMOL/L (135-145); TOTAL PROTEIN 6.7 G/DL (6.4-8.2); eGFR 47 ML/MIN
[2018-03-27 06:06] LABS: TOTAL CARBON DIOXIDE 41.8 MMOL/L (24-32)
[2018-03-27] MEDS: BUDESONIDE 0.25 MG/2 ML AMPUL.NEB IH SCH ×2 (07:20→19:24)
[2018-03-27 07:34] LABS: ANISOCYTOSIS 2+; MICROCYTOSIS 1+; PLATELET ESTIMATE INCREASED; TOTAL CELLS COUNTED 100
[2018-03-27 07:35] LABS: POLYCHROMASIA 1+
[2018-03-27] MEDS: K and/or MAG REPLACEMENT MC SCH (07:56)
[2018-03-27] MEDS: lactobacillus rhamnosus 10,000 MMU CELLS/CAPSULE PO SCH ×2 (07:58→19:36)
[2018-03-27] MEDS: carvedilol 6.25mg tablet PO SCH ×2 (07:58→19:37)
[2018-03-27] MEDS: ferrous sulfate 325mg tablet PO SCH ×2 (07:58→19:37)
[2018-03-27] MEDS: spironolactone 25 MG tablet PO SCH ×2 (07:58→19:37)
[2018-03-27] MEDS: gabapentin 400mg capsule PO SCH ×2 (07:59→19:36)
[2018-03-27] MEDS: furosemide 20MG tablet PO SCH ×2 (07:59→19:36)
[2018-03-27] MEDS: atorvastatin 10mg tablet PO SCH (07:59)
[2018-03-27] MEDS: pantoprazole 40mg Tablet.DR PO SCH (07:59)
[2018-03-27] MEDS: ascorbic acid 500mg tablet PO SCH (07:59)
[2018-03-27] MEDS: vitamin D (cholecalciferol) 1,000 unit tablet PO SCH (07:59)
[2018-03-27] MEDS: aspirin 81mg tablet.DR PO SCH (07:59)
[2018-03-27] MEDS: busPIRone 15mg tablet PO SCH ×2 (07:59→19:37)
[2018-03-27] MEDS: venlafaxine 37.5mg tablet PO SCH ×2 (07:59→19:37)
[2018-03-27] MEDS: docusate sod 100mg capsule PO SCH ×2 (08:00→19:37)
[2018-03-27] MEDS: heparin, porcine 5000 units/ml vial SQ SCH ×2 (08:00→19:39)
[2018-03-27] MEDS: levoTHYROXINE 75mcg tablet PO SCH (08:00)
[2018-03-27] MEDS: polyethylene glycol 3350 17gm powd pack PO SCH (08:00)
[2018-03-27] MEDS: hydrOXYzine 25 MG tablet PO PRN ×2 (08:08→15:45)
[2018-03-27] MEDS: HYDROcodone/acetaminophen 5mg/325mg tablet PO PRN ×2 (08:09→15:45)
[2018-03-27] MEDS: guaiFENesin/DM oral syrup 5 ML CUP PO PRN ×2 (10:42→21:40)
[2018-03-27 11:00] VITALS: BP 126/87
[2018-03-27 15:00] VITALS: BP 117/76
[2018-03-27] MEDS: benzonatate 100mg capsule PO PRN (15:45)
[2018-03-27 19:00] VITALS: BP 124/80
[2018-03-27] MEDS: traZODone 150mg tablet PO SCH (19:36)
[2018-03-27] MEDS: latanoprost 0.005% 2.5ml ophthalmic drops EACHEYE SCH (20:25)
[2018-03-27] MEDS: traZODone 50mg tablet PO SCH (20:26)
[2018-03-27 23:00] VITALS: BP 110/92
[2018-03-28 03:00] VITALS: BP 120/70
[2018-03-28] MEDS: ipratropium/albuterol 3ml nebule NEB SCH ×6 (03:11→23:11)
[2018-03-28] MEDS: mag hydrox/Alum hydrox/simeth 30ml oral suspension PO PRN (04:16)
[2018-03-28 06:00] VITALS: BP 113/53
[2018-03-28] MEDS: BUDESONIDE 0.25 MG/2 ML AMPUL.NEB IH SCH ×2 (07:09→20:29)
[2018-03-28] MEDS: K and/or MAG REPLACEMENT MC SCH (08:00)
[2018-03-28] MEDS: polyethylene glycol 3350 17gm powd pack PO SCH (08:00)
[2018-03-28] MEDS: lactobacillus rhamnosus 10,000 MMU CELLS/CAPSULE PO SCH ×2 (08:43→20:28)
[2018-03-28] MEDS: gabapentin 400mg capsule PO SCH ×2 (08:43→20:26)
[2018-03-28] MEDS: atorvastatin 10mg tablet PO SCH (08:43)
[2018-03-28] MEDS: ascorbic acid 500mg tablet PO SCH (08:43)
[2018-03-28] MEDS: carvedilol 6.25mg tablet PO SCH ×2 (08:43→20:28)
[2018-03-28] MEDS: furosemide 20MG tablet PO SCH ×2 (08:43→20:27)
[2018-03-28] MEDS: busPIRone 15mg tablet PO SCH ×2 (08:44→20:29)
[2018-03-28] MEDS: venlafaxine 37.5mg tablet PO SCH ×2 (08:44→20:28)
[2018-03-28] MEDS: levoTHYROXINE 75mcg tablet PO SCH (08:44)
[2018-03-28] MEDS: ferrous sulfate 325mg tablet PO SCH ×2 (08:44→20:29)
[2018-03-28] MEDS: spironolactone 25 MG tablet PO SCH ×2 (08:44→20:27)
[2018-03-28] MEDS: pantoprazole 40mg Tablet.DR PO SCH (08:44)
[2018-03-28] MEDS: aspirin 81mg tablet.DR PO SCH (08:44)
[2018-03-28] MEDS: docusate sod 100mg capsule PO SCH ×2 (08:44→20:28)
[2018-03-28] MEDS: hydrOXYzine 25 MG tablet PO PRN ×2 (08:44→13:13)
[2018-03-28] MEDS: vitamin D (cholecalciferol) 1,000 unit tablet PO SCH (08:44)
[2018-03-28] MEDS: ondansetron/PF 4mg/2ml inj IV PRN (08:44)
[2018-03-28] MEDS: HYDROcodone/acetaminophen 5mg/325mg tablet PO PRN ×2 (08:46→13:13)
[2018-03-28] MEDS: heparin, porcine 5000 units/ml vial SQ SCH ×2 (08:46→20:32)
[2018-03-28 09:05] LABS: BASOPHILS % (AUTO) 0.1 % (0-1); EOSINOPHILS # (AUTO) 0.2 X10'3 (0-0.9); EOSINOPHILS % (AUTO) 0.9 % (0-6); HEMATOCRIT 31.1 % (35.0-45.0); HEMOGLOBIN 10.1 g/dl (12.0-16.0); LYMPHOCYTES # (AUTO) 2.7 X10'3 (1.1-4.8); MEAN CORPUSCULAR HEMOGLOBIN 27.8 PG (27.0-31.0); MEAN CORPUSCULAR HGB CONC 32.4 % (33.0-36.5); MEAN PLATELET VOLUME 7.6 FL (7.4-10.4); MONOCYTES # (AUTO) 1.2 X10'3 (0-0.9); MONOCYTES % (AUTO) 5.9 % (2-12); NEUTROPHILS # (AUTO) 16.8 X10'3 (1.8-7.7); NEUTROPHILS % (AUTO) 80.1 % (42-75); PLATELET COUNT 504 X10'3 (140-440); RED BLOOD COUNT 3.61 X10'6 (4.20-5.60); RED CELL DISTRIBUTION WIDTH 19.3 % (11.5-14.5)
[2018-03-28 09:15] LABS: ALBUMIN 3.3 G/DL (3.4-5.0); BLOOD UREA NITROGEN 43 MG/DL (7-18); BUN/CREATININE RATIO 32.1 (6.6-38.0); CHLORIDE 94 MMOL/L (99-107); CREATININE 1.34 MG/DL (0.40-0.90); GLUCOSE 137 MG/DL (70-104); POTASSIUM 3.9 MMOL/L (3.5-5.1); SODIUM 138 MMOL/L (135-145); eGFR 40 ML/MIN
[2018-03-28 09:16] LABS: ANION GAP 0 (8-16); CALCIUM 9.6 MG/DL (8.5-10.1)
[2018-03-28 09:18] LABS: TOTAL CARBON DIOXIDE 44.2 MMOL/L (24-32)
[2018-03-28 10:24] LABS: BANDS% (MANUAL) 6 % (0-10); LYMPHOCYTES % (MANUAL) 14 % (21-51); METAMYLEOCYTES% (MANUAL) 4 % (0-0); MONOCYTES % (MANUAL) 10 % (2-12); MYELOCYTES % (MANUAL) 3 % (0-0); NEUTROPHILS % (MANUAL) 63 % (42-75); PLATELET ESTIMATE INCREASED; TOTAL CELLS COUNTED 200
[2018-03-28 10:26] LABS: ANISOCYTOSIS 2+; HYPOCHROMASIA 1+; POLYCHROMASIA 1+; STOMATOCYTES 1+; TEAR DROP CELLS FEW
[2018-03-28 11:00] VITALS: BP 114/76
[2018-03-28] MEDS: benzonatate 100mg capsule PO PRN (13:13)
[2018-03-28 15:00] VITALS: BP 127/67
[2018-03-28] MEDS: acetaminophen 325mg tablet PO PRN (15:59)
[2018-03-28] MEDS: normal saline 1000ml 1,000 ML IV SCH (16:05)
[2018-03-28 19:00] VITALS: BP 107/77
[2018-03-28] MEDS: traZODone 150mg tablet PO SCH (20:27)
[2018-03-28] MEDS: linezolid 600mg tablet PO SCH (20:27)
[2018-03-28] MEDS: guaiFENesin/DM oral syrup 5 ML CUP PO PRN (20:29)
[2018-03-28] MEDS: latanoprost 0.005% 2.5ml ophthalmic drops EACHEYE SCH (20:30)
[2018-03-28] MEDS: traZODone 50mg tablet PO SCH (20:32)
[2018-03-28 23:00] VITALS: BP 123/75
[2018-03-29 03:00] VITALS: BP 124/70
[2018-03-29] MEDS: ipratropium/albuterol 3ml nebule NEB SCH ×6 (03:07→23:13)
[2018-03-29 06:00] VITALS: BP 132/78
[2018-03-29] MEDS: BUDESONIDE 0.25 MG/2 ML AMPUL.NEB IH SCH ×2 (07:38→19:19)
[2018-03-29] MEDS: K and/or MAG REPLACEMENT MC SCH (08:00)
[2018-03-29] MEDS: ascorbic acid 500mg tablet PO SCH (08:00)
[2018-03-29] MEDS: polyethylene glycol 3350 17gm powd pack PO SCH (08:00)
[2018-03-29] MEDS: docusate sod 100mg capsule PO SCH ×2 (08:00→19:06)
[2018-03-29] MEDS: lactobacillus rhamnosus 10,000 MMU CELLS/CAPSULE PO SCH ×2 (08:56→19:06)
[2018-03-29] MEDS: vitamin D (cholecalciferol) 1,000 unit tablet PO SCH (08:56)
[2018-03-29] MEDS: carvedilol 6.25mg tablet PO SCH ×2 (08:57→19:06)
[2018-03-29] MEDS: furosemide 20MG tablet PO SCH ×2 (08:57→19:06)
[2018-03-29] MEDS: prednisone 10mg tablet PO SCH (08:57)
[2018-03-29] MEDS: gabapentin 400mg capsule PO SCH ×2 (08:57→19:07)
[2018-03-29] MEDS: pantoprazole 40mg Tablet.DR PO SCH (08:57)
[2018-03-29] MEDS: benzonatate 100mg capsule PO PRN ×2 (08:57→20:32)
[2018-03-29] MEDS: spironolactone 25 MG tablet PO SCH ×2 (08:58→19:05)
[2018-03-29] MEDS: venlafaxine 37.5mg tablet PO SCH ×2 (08:58→19:06)
[2018-03-29] MEDS: aspirin 81mg tablet.DR PO SCH (08:58)
[2018-03-29] MEDS: atorvastatin 10mg tablet PO SCH (08:58)
[2018-03-29] MEDS: busPIRone 15mg tablet PO SCH ×2 (08:58→19:06)
[2018-03-29] MEDS: hydrOXYzine 25 MG tablet PO PRN ×2 (08:58→19:07)
[2018-03-29] MEDS: ferrous sulfate 325mg tablet PO SCH ×2 (08:58→19:06)
[2018-03-29] MEDS: heparin, porcine 5000 units/ml vial SQ SCH ×2 (08:59→19:07)
[2018-03-29] MEDS: levoTHYROXINE 75mcg tablet PO SCH (08:59)
[2018-03-29] MEDS: HYDROcodone/acetaminophen 5mg/325mg tablet PO PRN ×4 (09:00→23:18)
[2018-03-29] MEDS: linezolid 600mg tablet PO SCH ×2 (09:02→20:32)
[2018-03-29 11:00] VITALS: BP 130/76
[2018-03-29 11:22] LABS: CLARITY,URINE CLEAR (Clear); COLOR,URINE YELLOW (Yellow); GLUCOSE, URINE NEGATIVE (Neg); KETONES,URINE NEGATIVE (Neg); LEUKOCYTE ESTERASE ,URINE NEGATIVE (Neg); NITRITES, URINE NEGATIVE (Neg); OCCULT BLOOD,URINE NEGATIVE (Neg); PROTEIN,URINE NEGATIVE (Neg); UROBILINOGEN,URINE 0.2 E.U/dL (0.2-1.0)
[2018-03-29 11:23] LABS: UA COLLECTION TYPE NON-SPECIFIED
[2018-03-29 11:37] LABS: BASOPHILS % (AUTO) 0.2 % (0-1); EOSINOPHILS # (AUTO) 0.1 X10'3 (0-0.9); EOSINOPHILS % (AUTO) 0.9 % (0-6); HEMATOCRIT 28.5 % (35.0-45.0); HEMOGLOBIN 9.1 g/dl (12.0-16.0); LYMPHOCYTES # (AUTO) 1.6 X10'3 (1.1-4.8); MEAN CORPUSCULAR HEMOGLOBIN 27.7 PG (27.0-31.0); MEAN CORPUSCULAR HGB CONC 31.9 % (33.0-36.5); MEAN CORPUSCULAR VOLUME 86.8 FL (78-98); MEAN PLATELET VOLUME 7.2 FL (7.4-10.4); MONOCYTES # (AUTO) 1.2 X10'3 (0-0.9); MONOCYTES % (AUTO) 8.3 % (2-12); NEUTROPHILS # (AUTO) 11.4 X10'3 (1.8-7.7); NEUTROPHILS % (AUTO) 79.6 % (42-75); PLATELET COUNT 426 X10'3 (140-440); RED BLOOD COUNT 3.28 X10'6 (4.20-5.60); RED CELL DISTRIBUTION WIDTH 19.5 % (11.5-14.5); WHITE BLOOD COUNT 14.3 X10'3 (4.5-11.0)
[2018-03-29 11:46] LABS: ALBUMIN 3.1 G/DL (3.4-5.0); BLOOD UREA NITROGEN 38 MG/DL (7-18); BUN/CREATININE RATIO 28.8 (6.6-38.0); CALCIUM 9.6 MG/DL (8.5-10.1); CHLORIDE 93 MMOL/L (99-107); CREATININE 1.32 MG/DL (0.40-0.90); GLUCOSE 154 MG/DL (70-104); POTASSIUM 4.3 MMOL/L (3.5-5.1); SODIUM 140 MMOL/L (135-145); eGFR 41 ML/MIN
[2018-03-29 11:56] LABS: ANISOCYTOSIS 2+; PLATELET ESTIMATE NORMAL
[2018-03-29 11:57] LABS: MICROCYTOSIS 1+; POLYCHROMASIA 1+
[2018-03-29 11:58] LABS: ANION GAP -3 (8-16); TOTAL CARBON DIOXIDE > 50 MMOL/L (24-32)
[2018-03-29 15:00] VITALS: BP 135/78
[2018-03-29 18:00] VITALS: BP 147/91
[2018-03-29] MEDS: traZODone 50mg tablet PO SCH (20:27)
[2018-03-29] MEDS: traZODone 150mg tablet PO SCH (20:32)
[2018-03-29] MEDS: guaiFENesin 200 MG/10 ML oral syrup UD cup PO PRN (20:33)
[2018-03-29] MEDS: latanoprost 0.005% 2.5ml ophthalmic drops EACHEYE SCH (20:33)
[2018-03-29 22:00] VITALS: BP 135/83
[2018-03-30 02:00] VITALS: BP 123/75
[2018-03-30] MEDS: ipratropium/albuterol 3ml nebule NEB SCH ×6 (02:58→23:15)
[2018-03-30] MEDS: HYDROcodone/acetaminophen 5mg/325mg tablet PO PRN ×4 (05:15→20:36)
[2018-03-30 06:00] VITALS: BP 126/87
[2018-03-30] MEDS: BUDESONIDE 0.25 MG/2 ML AMPUL.NEB IH SCH ×2 (07:12→19:51)
[2018-03-30] MEDS: docusate sod 100mg capsule PO SCH ×2 (07:25→20:00)
[2018-03-30] MEDS: busPIRone 15mg tablet PO SCH ×2 (07:25→20:22)
[2018-03-30] MEDS: pantoprazole 40mg Tablet.DR PO SCH (07:25)
[2018-03-30] MEDS: hydrOXYzine 25 MG tablet PO PRN ×2 (07:26→14:46)
[2018-03-30] MEDS: aspirin 81mg tablet.DR PO SCH (07:26)
[2018-03-30] MEDS: venlafaxine 37.5mg tablet PO SCH ×2 (07:26→20:22)
[2018-03-30] MEDS: gabapentin 400mg capsule PO SCH ×2 (07:26→20:21)
[2018-03-30] MEDS: furosemide 20MG tablet PO SCH ×2 (07:27→20:21)
[2018-03-30] MEDS: ascorbic acid 500mg tablet PO SCH (07:27)
[2018-03-30] MEDS: linezolid 600mg tablet PO SCH ×2 (07:27→20:20)
[2018-03-30] MEDS: atorvastatin 10mg tablet PO SCH (07:27)
[2018-03-30] MEDS: vitamin D (cholecalciferol) 1,000 unit tablet PO SCH (07:27)
[2018-03-30] MEDS: lactobacillus rhamnosus 10,000 MMU CELLS/CAPSULE PO SCH ×2 (07:27→20:20)
[2018-03-30] MEDS: spironolactone 25 MG tablet PO SCH ×2 (07:27→20:20)
[2018-03-30] MEDS: ferrous sulfate 325mg tablet PO SCH ×2 (07:27→20:21)
[2018-03-30] MEDS: levoTHYROXINE 75mcg tablet PO SCH (07:27)
[2018-03-30] MEDS: benzonatate 100mg capsule PO PRN ×2 (07:28→20:19)
[2018-03-30] MEDS: polyethylene glycol 3350 17gm powd pack PO SCH (07:28)
[2018-03-30] MEDS: carvedilol 6.25mg tablet PO SCH ×2 (07:28→20:21)
[2018-03-30] MEDS: heparin, porcine 5000 units/ml vial SQ SCH ×2 (07:28→20:20)
[2018-03-30] MEDS: K and/or MAG REPLACEMENT MC SCH (07:44)
[2018-03-30] MEDS: prednisone 10mg tablet PO SCH (08:00)
[2018-03-30 10:24] LABS: BASOPHILS % (AUTO) 0.2 % (0-1); EOSINOPHILS # (AUTO) 0.1 X10'3 (0-0.9); EOSINOPHILS % (AUTO) 0.7 % (0-6); HEMATOCRIT 29.9 % (35.0-45.0); HEMOGLOBIN 9.5 g/dl (12.0-16.0); LYMPHOCYTES # (AUTO) 1.8 X10'3 (1.1-4.8); MEAN CORPUSCULAR HGB CONC 31.8 % (33.0-36.5); MEAN CORPUSCULAR VOLUME 88.1 FL (78-98); MEAN PLATELET VOLUME 8.3 FL (7.4-10.4); MONOCYTES # (AUTO) 0.8 X10'3 (0-0.9); MONOCYTES % (AUTO) 5.5 % (2-12); NEUTROPHILS # (AUTO) 12.1 X10'3 (1.8-7.7); NEUTROPHILS % (AUTO) 81.6 % (42-75); PLATELET COUNT 442 X10'3 (140-440); RED BLOOD COUNT 3.39 X10'6 (4.20-5.60); RED CELL DISTRIBUTION WIDTH 20.2 % (11.5-14.5); WHITE BLOOD COUNT 14.8 X10'3 (4.5-11.0)
[2018-03-30 11:00] VITALS: BP 119/80
[2018-03-30 11:22] LABS: ANISOCYTOSIS 2+; PLATELET ESTIMATE INCREASED; TOTAL CELLS COUNTED 100
[2018-03-30 11:23] LABS: POLYCHROMASIA FEW; STOMATOCYTES 2+
[2018-03-30 11:24] LABS: HYPOCHROMASIA 1+
[2018-03-30 15:00] VITALS: BP 144/95
[2018-03-30] MEDS: normal saline 1000ml 1,000 ML IV SCH (16:05)
[2018-03-30 18:00] VITALS: BP 141/89
[2018-03-30] MEDS: guaiFENesin 200 MG/10 ML oral syrup UD cup PO PRN (20:19)
[2018-03-30] MEDS: latanoprost 0.005% 2.5ml ophthalmic drops EACHEYE SCH (20:22)
[2018-03-30] MEDS: traZODone 150mg tablet PO SCH (20:22)
[2018-03-30] MEDS: traZODone 50mg tablet PO SCH (21:00)
[2018-03-30 22:00] VITALS: BP 130/76
[2018-03-31 02:00] VITALS: BP 142/82
[2018-03-31] MEDS: ipratropium/albuterol 3ml nebule NEB SCH ×6 (03:44→23:09)
[2018-03-31 05:41] LABS: BASOPHILS % (AUTO) 0.1 % (0-1); EOSINOPHILS # (AUTO) 0.2 X10'3 (0-0.9); EOSINOPHILS % (AUTO) 1.5 % (0-6); HEMATOCRIT 27.6 % (35.0-45.0); LYMPHOCYTES % (AUTO) 19.9 % (21-51); MEAN CORPUSCULAR HEMOGLOBIN 28.4 PG (27.0-31.0); MEAN CORPUSCULAR HGB CONC 32.7 % (33.0-36.5); MEAN PLATELET VOLUME 8.8 FL (7.4-10.4); MONOCYTES # (AUTO) 1.4 X10'3 (0-0.9); MONOCYTES % (AUTO) 9.5 % (2-12); NEUTROPHILS # (AUTO) 10.3 X10'3 (1.8-7.7); PLATELET COUNT 398 X10'3 (140-440); RED BLOOD COUNT 3.17 X10'6 (4.20-5.60); RED CELL DISTRIBUTION WIDTH 20.4 % (11.5-14.5)
[2018-03-31 05:51] LABS: ALANINE AMINOTRANSFERASE 19 U/L (12-78); ALBUMIN 3.2 G/DL (3.4-5.0); ALBUMIN/GLOBULIN RATIO 0.9 (1.1-1.5); ALKALINE PHOSPHATASE 60 IU/L (46-116); ASPARTATE AMINO TRANSFERASE 16 U/L (10-37); BILIRUBIN,TOTAL 0.2 MG/DL (0.1-1.0); BLOOD UREA NITROGEN 42 MG/DL (7-18); BUN/CREATININE RATIO 30.9 (6.6-38.0); CALCIUM 8.9 MG/DL (8.5-10.1); CHLORIDE 95 MMOL/L (99-107); CREATININE 1.36 MG/DL (0.40-0.90); GLUCOSE 91 MG/DL (70-104); PHOSPHORUS 3.7 MG/DL (2.3-4.5); POTASSIUM 3.6 MMOL/L (3.5-5.1); SODIUM 140 MMOL/L (135-145); TOTAL PROTEIN 6.6 G/DL (6.4-8.2); eGFR 39 ML/MIN
[2018-03-31 06:00] VITALS: BP 117/62
[2018-03-31 06:30] LABS: ANION GAP -1 (8-16)
[2018-03-31] MEDS: BUDESONIDE 0.25 MG/2 ML AMPUL.NEB IH SCH ×2 (06:46→19:04)
[2018-03-31 07:15] LABS: ANISOCYTOSIS 2+; PLATELET ESTIMATE NORMAL; STOMATOCYTES 2+
[2018-03-31 07:16] LABS: POIKILOCYTOSIS FEW; POLYCHROMASIA FEW
[2018-03-31 07:27] LABS: TOTAL CARBON DIOXIDE 46.1 MMOL/L (24-32)
[2018-03-31] MEDS: polyethylene glycol 3350 17gm powd pack PO SCH (08:00)
[2018-03-31] MEDS: K and/or MAG REPLACEMENT MC SCH (08:00)
[2018-03-31] MEDS: busPIRone 15mg tablet PO SCH ×2 (09:27→20:41)
[2018-03-31] MEDS: levoTHYROXINE 75mcg tablet PO SCH (09:28)
[2018-03-31] MEDS: vitamin D (cholecalciferol) 1,000 unit tablet PO SCH (09:28)
[2018-03-31] MEDS: atorvastatin 10mg tablet PO SCH (09:28)
[2018-03-31] MEDS: aspirin 81mg tablet.DR PO SCH (09:29)
[2018-03-31] MEDS: venlafaxine 37.5mg tablet PO SCH ×2 (09:29→20:41)
[2018-03-31] MEDS: benzonatate 100mg capsule PO PRN ×2 (09:29→20:48)
[2018-03-31] MEDS: gabapentin 400mg capsule PO SCH ×2 (09:30→20:40)
[2018-03-31] MEDS: spironolactone 25 MG tablet PO SCH ×2 (09:30→20:40)
[2018-03-31] MEDS: prednisone 10mg tablet PO SCH (09:31)
[2018-03-31] MEDS: furosemide 20MG tablet PO SCH ×2 (09:31→20:40)
[2018-03-31] MEDS: pantoprazole 40mg Tablet.DR PO SCH (09:31)
[2018-03-31] MEDS: hydrOXYzine 25 MG tablet PO PRN (09:31)
[2018-03-31] MEDS: lactobacillus rhamnosus 10,000 MMU CELLS/CAPSULE PO SCH ×2 (09:32→20:40)
[2018-03-31] MEDS: docusate sod 100mg capsule PO SCH ×2 (09:32→20:00)
[2018-03-31] MEDS: ferrous sulfate 325mg tablet PO SCH ×2 (09:32→20:40)
[2018-03-31] MEDS: linezolid 600mg tablet PO SCH ×2 (09:32→20:39)
[2018-03-31] MEDS: carvedilol 6.25mg tablet PO SCH ×2 (09:33→20:40)
[2018-03-31] MEDS: HYDROcodone/acetaminophen 5mg/325mg tablet PO PRN ×2 (09:33→14:01)
[2018-03-31] MEDS: ascorbic acid 500mg tablet PO SCH (09:34)
[2018-03-31] MEDS: heparin, porcine 5000 units/ml vial SQ SCH ×2 (09:36→20:39)
[2018-03-31] MEDS: guaiFENesin 200 MG/10 ML oral syrup UD cup PO PRN ×3 (09:36→20:48)
[2018-03-31 11:00] VITALS: BP 112/53
[2018-03-31 15:00] VITALS: BP 147/92
[2018-03-31] MEDS ORDERED: CARV6.253 PO (15:37)
[2018-03-31] MEDS ORDERED: LEVO75TA7 PO (15:37)
[2018-03-31] MEDS ORDERED: LACT1CAP26 PO (15:37)
[2018-03-31] MEDS ORDERED: FER325T PO (15:37)
[2018-03-31] MEDS ORDERED: LINE600T32 PO (15:37)
[2018-03-31] MEDS ORDERED: BENZ-16 PO (15:37)
[2018-03-31] MEDS ORDERED: PRED10TA PO (15:37)
[2018-03-31 19:00] VITALS: BP 129/81
[2018-03-31] MEDS: traZODone 150mg tablet PO SCH (20:40)
[2018-03-31] MEDS: latanoprost 0.005% 2.5ml ophthalmic drops EACHEYE SCH (20:42)
[2018-03-31] MEDS: traZODone 50mg tablet PO SCH (20:45)
[2018-03-31 23:00] VITALS: BP 131/73
[2018-04-01] MEDS: ipratropium/albuterol 3ml nebule NEB SCH ×3 (02:55→11:00)
[2018-04-01 03:00] VITALS: BP 141/72
[2018-04-01 05:57] LABS: BASOPHILS % (AUTO) 0.2 % (0-1); EOSINOPHILS # (AUTO) 0.1 X10'3 (0-0.9); HEMATOCRIT 27.6 % (35.0-45.0); HEMOGLOBIN 8.9 g/dl (12.0-16.0); LYMPHOCYTES # (AUTO) 3.1 X10'3 (1.1-4.8); LYMPHOCYTES % (AUTO) 22.1 % (21-51); MEAN CORPUSCULAR HEMOGLOBIN 28.3 PG (27.0-31.0); MEAN CORPUSCULAR HGB CONC 32.3 % (33.0-36.5); MEAN CORPUSCULAR VOLUME 87.5 FL (78-98); MEAN PLATELET VOLUME 8.6 FL (7.4-10.4); MONOCYTES # (AUTO) 1.3 X10'3 (0-0.9); MONOCYTES % (AUTO) 9.5 % (2-12); NEUTROPHILS # (AUTO) 9.4 X10'3 (1.8-7.7); NEUTROPHILS % (AUTO) 67.2 % (42-75); PLATELET COUNT 372 X10'3 (140-440); RED BLOOD COUNT 3.16 X10'6 (4.20-5.60); RED CELL DISTRIBUTION WIDTH 20.8 % (11.5-14.5)
[2018-04-01 06:00] VITALS: BP 122/91
[2018-04-01 06:37] LABS: ALANINE AMINOTRANSFERASE 26 U/L (12-78); ALBUMIN 3.2 G/DL (3.4-5.0); ALKALINE PHOSPHATASE 55 IU/L (46-116); ANION GAP 2 (8-16); ASPARTATE AMINO TRANSFERASE 15 U/L (10-37); BILIRUBIN,TOTAL 0.2 MG/DL (0.1-1.0); BLOOD UREA NITROGEN 37 MG/DL (7-18); BUN/CREATININE RATIO 25.2 (6.6-38.0); CALCIUM 8.7 MG/DL (8.5-10.1); CHLORIDE 97 MMOL/L (99-107); CREATININE 1.47 MG/DL (0.40-0.90); GLUCOSE 85 MG/DL (70-104); MAGNESIUM 1.9 MG/DL (1.5-2.4); PHOSPHORUS 3.7 MG/DL (2.3-4.5); POTASSIUM 3.4 MMOL/L (3.5-5.1); SODIUM 142 MMOL/L (135-145); TOTAL PROTEIN 6.5 G/DL (6.4-8.2); eGFR 36 ML/MIN
[2018-04-01 06:56] LABS: TOTAL CARBON DIOXIDE 42.6 MMOL/L (24-32)
[2018-04-01] MEDS: BUDESONIDE 0.25 MG/2 ML AMPUL.NEB IH SCH (06:59)
[2018-04-01 07:33] LABS: PLATELET ESTIMATE NORMAL
[2018-04-01 07:34] LABS: ANISOCYTOSIS 3+; STOMATOCYTES 2+
[2018-04-01] MEDS: K and/or MAG REPLACEMENT MC SCH (08:00)
[2018-04-01] MEDS: polyethylene glycol 3350 17gm powd pack PO SCH (08:00)
[2018-04-01] MEDS: benzonatate 100mg capsule PO PRN (08:09)
[2018-04-01] MEDS: atorvastatin 10mg tablet PO SCH (08:10)
[2018-04-01] MEDS: venlafaxine 37.5mg tablet PO SCH (08:10)
[2018-04-01] MEDS: aspirin 81mg tablet.DR PO SCH (08:10)
[2018-04-01] MEDS: lactobacillus rhamnosus 10,000 MMU CELLS/CAPSULE PO SCH (08:10)
[2018-04-01] MEDS: ferrous sulfate 325mg tablet PO SCH (08:11)
[2018-04-01] MEDS: spironolactone 25 MG tablet PO SCH (08:11)
[2018-04-01] MEDS: docusate sod 100mg capsule PO SCH (08:11)
[2018-04-01] MEDS: vitamin D (cholecalciferol) 1,000 unit tablet PO SCH (08:11)
[2018-04-01] MEDS: prednisone 10mg tablet PO SCH (08:11)
[2018-04-01] MEDS: furosemide 20MG tablet PO SCH (08:12)
[2018-04-01] MEDS: pantoprazole 40mg Tablet.DR PO SCH (08:12)
[2018-04-01] MEDS: ascorbic acid 500mg tablet PO SCH (08:12)
[2018-04-01] MEDS: carvedilol 6.25mg tablet PO SCH (08:13)
[2018-04-01] MEDS: hydrOXYzine 25 MG tablet PO PRN (08:13)
[2018-04-01] MEDS: levoTHYROXINE 75mcg tablet PO SCH (08:13)
[2018-04-01] MEDS: busPIRone 15mg tablet PO SCH (08:14)
[2018-04-01] MEDS: gabapentin 400mg capsule PO SCH (08:14)
[2018-04-01] MEDS: HYDROcodone/acetaminophen 5mg/325mg tablet PO PRN (08:14)
[2018-04-01] MEDS: guaiFENesin 200 MG/10 ML oral syrup UD cup PO PRN (08:15)
[2018-04-01] MEDS: heparin, porcine 5000 units/ml vial SQ SCH (08:20)
[2018-04-01] MEDS: linezolid 600mg tablet PO SCH (08:27)
== END 2018-04-01 12:15 | disposition home health service (06) | DRG 133 ==
LOC: ER 13:37 → ED HOLD 16:05 → PCU 3S 21:43
PROVIDERS: ADMIT Family Medicine; ATTEND Family Medicine
PROC: 5A09357 Assistance with Respiratory Ventilation, Less than 24 Consecutive Hours, Continuous Positive Airway Pressure (ICD-10-PCS; principal; 2018-03-18)
PROC: 5A09357 Assistance with Respiratory Ventilation, Less than 24 Consecutive Hours, Continuous Positive Airway Pressure (ICD-10-PCS; 2018-03-19)
PROC: CB221ZZ Tomographic (Tomo) Nuclear Medicine Imaging of Lungs and Bronchi using Technetium 99m (Tc-99m) (ICD-10-PCS; 2018-03-19)
PROC: 5A09357 Assistance with Respiratory Ventilation, Less than 24 Consecutive Hours, Continuous Positive Airway Pressure (ICD-10-PCS; 2018-03-20)
PROC: 5A09357 Assistance with Respiratory Ventilation, Less than 24 Consecutive Hours, Continuous Positive Airway Pressure (ICD-10-PCS; 2018-03-21)
PROC: 5A09357 Assistance with Respiratory Ventilation, Less than 24 Consecutive Hours, Continuous Positive Airway Pressure (ICD-10-PCS; 2018-03-22)
PROC: 5A09357 Assistance with Respiratory Ventilation, Less than 24 Consecutive Hours, Continuous Positive Airway Pressure (ICD-10-PCS; 2018-03-23)
PROC: 5A09357 Assistance with Respiratory Ventilation, Less than 24 Consecutive Hours, Continuous Positive Airway Pressure (ICD-10-PCS; 2018-03-24)
PROC: 5A09357 Assistance with Respiratory Ventilation, Less than 24 Consecutive Hours, Continuous Positive Airway Pressure (ICD-10-PCS; 2018-03-25)
PROC: 5A09357 Assistance with Respiratory Ventilation, Less than 24 Consecutive Hours, Continuous Positive Airway Pressure (ICD-10-PCS; 2018-03-26)
PROC: 5A09357 Assistance with Respiratory Ventilation, Less than 24 Consecutive Hours, Continuous Positive Airway Pressure (ICD-10-PCS; 2018-03-27)
PROC: 5A09357 Assistance with Respiratory Ventilation, Less than 24 Consecutive Hours, Continuous Positive Airway Pressure (ICD-10-PCS; 2018-03-28)
DX: J96.21 Acute and chronic respiratory failure with hypoxia (principal); J18.9 Pneumonia, unspecified organism; E11.22 Type 2 diabetes mellitus with diabetic chronic kidney disease; E11.42 Type 2 diabetes mellitus with diabetic polyneuropathy; I13.0 Hypertensive heart and chronic kidney disease with heart failure and stage 1 through stage 4 chronic kidney disease, or unspecified chronic kidney disease; E66.01 Morbid (severe) obesity due to excess calories; I27.81 Cor pulmonale (chronic); I50.30 Unspecified diastolic (congestive) heart failure; D50.9 Iron deficiency anemia, unspecified; D63.8 Anemia in other chronic diseases classified elsewhere; E03.9 Hypothyroidism, unspecified; E78.00 Pure hypercholesterolemia, unspecified; E78.5 Hyperlipidemia, unspecified; E87.2 Acidosis; J44.0 Chronic obstructive pulmonary disease with (acute) lower respiratory infection; E87.6 Hypokalemia; F31.9 Bipolar disorder, unspecified; G47.00 Insomnia, unspecified; G47.30 Sleep apnea, unspecified; M19.90 Unspecified osteoarthritis, unspecified site; G89.4 Chronic pain syndrome; J44.1 Chronic obstructive pulmonary disease with (acute) exacerbation; N18.3 Chronic kidney disease, stage 3 (moderate); Z68.41 Body mass index [BMI] 40.0-44.9, adult; Z79.52 Long term (current) use of systemic steroids; Z87.891 Personal history of nicotine dependence; Z81.8 Family history of other mental and behavioral disorders; Z90.710 Acquired absence of both cervix and uterus; Z91.19 Patient's noncompliance with other medical treatment and regimen; Z99.81 Dependence on supplemental oxygen; Z79.899 Other long term (current) drug therapy; Z88.1 Allergy status to other antibiotic agents; Z91.041 Radiographic dye allergy status; Z91.040 Latex allergy status; Z88.0 Allergy status to penicillin; Z88.2 Allergy status to sulfonamides; Z88.7 Allergy status to serum and vaccine; Z91.048 Other nonmedicinal substance allergy status; Z82.3 Family history of stroke; Z84.89 Family history of other specified conditions
CPT/HCPCS: 36415; 71046; 71250; 78582; 80048; 80053; 81003; 82272; 82728; 83540; 83550; 83605; 83735; 83880; 84100; 84132; 84145; 84443; 85025; 87040; 87070; 87077; 93005; 94640; 94660; 94760; 96374; 97110; 97116; 97162; 97530; 99285; A4620; A6212; A6213; A6250; A6258; A9539; A9540; J1644; J1940; J1956; J2405; J2920; J2930; J3370; J3490; J7030; J7512; J7611; J7626; Q0177